=== PATIENT | male | born 1955 | race Caucasian/White ===

== ENCOUNTER 2020-11-30 14:49 | Emergency (ER) | payer BC ==
[2020-11-30 14:55] VITALS: TEMP 98
--- NOTE | 2020-11-30 15:24 | ED ---
Neuro HPI - General Chief Complaint: Weakness Stated Complaint: Face numbness Time Seen by Provider: 11/30/20 15:10 Source: patient Mode of arrival: wheelchair Limitations: no limitations - History of Present Illness Is the patient presenting with stroke symptoms?: Yes Last Known Well Date: 11/23/20 Initial Comments: This is a 65 yo male with h/o tobacco use and depression who presents to the ED for L facial numbness. The patient states it has been going on for the last week. STates that he feels his left cheek and upper lip are numb. States he also feels like the gums on his maxillary gums are aching. Denies any weakness, facial droop, difficulty with speech or swallowing, vision changes, difficulty with coordination. Denies CP or SOB. No trauma. No ear aches. Went to the dentist who told him he did not feel this was related to his teeth and sent him to the ED. No other complaints. - Related Data Home Medications: Previous Rx's Medication Instructions Recorded Amoxic-Pot Clav 875-125Mg 1 tab PO BID 1 Days #14 tab 11/30/20 [Augmentin 875-125] Allergies/Adverse Reactions: Allergies Allergy/AdvReac Type Severity Reaction Status Date / Time No Known Allergies Allergy Verified 11/30/20 14:55 Review of Systems ROS Statement: Those systems with pertinent positive or pertinent negative responses have been documented in the HPI. ROS Other: All systems not noted in ROS Statement are negative. General Exam - General Exam Comments Initial Comments: Constitutional: [Awake alert] [Appears comfortable] Head: [Normocephalic atraumatic] ENT: TM clear b/l, no ear fullness, oropharynx clear, multiple dental caries, no infectious signs Eyes: [no conjunctival injection] [No scleral icterus] [EOMI] Pupils 4mm and reactive b;l Neck: [No JVD] [Supple], no bruit Heart: [Regular rate rhythm] [normal S1-S2] [no murmurs] Lungs: [Clear to auscultation bilaterally] [No wheezing] [No rales] Abdomen: [Soft] [nondistended] [nontender] Extremities: [Non edematous] [DP pulses intact] [Radial pulses intact] Neuro: [A&Ox3] CN 2-12 intact except V, 5/5 strength in UE/LE b/l, decreased sensation over V2 area on L, Normal heel to mathis finger to nose, visual caban intact [No focal neurologic deficits] Psych: [Appropriate mood and affect] Limitations: no limitations Stroke MDM - Lab Data Result diagrams: 11/30/20 15:36 11/30/20 15:36 Lab Results 11/30/20 11/30/20 11/30/20 Range/Units 15:36 15:36 15:36 WBC 7.0 (3.8-10.6) k/uL RBC 4.50 (4.30-5.90) m/uL Hgb 15.0 (13.0-17.5) gm/dL Hct 43.5 (39.0-53.0) % MCV 96.8 (80.0-100.0) fL MCH 33.3 (25.0-35.0) pg MCHC 34.4 (31.0-37.0) g/dL RDW 13.9 (11.5-15.5) % Plt Count 233 (150-450) k/uL MPV 6.7 Neutrophils % 58 % Lymphocytes % 28 % Monocytes % 7 % Eosinophils % 3 % Basophils % 1 % Neutrophils # 4.1 (1.3-7.7) k/uL Lymphocytes # 2.0 (1.0-4.8) k/uL Monocytes # 0.5 (0-1.0) k/uL Eosinophils # 0.2 (0-0.7) k/uL Basophils # 0.1 (0-0.2) k/uL PT 10.8 (9.0-12.0) sec INR 1.0 (<1.2) APTT 25.4 (22.0-30.0) sec Sodium 139 (137-145) mmol/L Potassium 4.4 (3.5-5.1) mmol/L Chloride 106 (98-107) mmol/L Carbon Dioxide 27 (22-30) mmol/L Anion Gap 6 mmol/L BUN 10 (9-20) mg/dL Creatinine 0.72 (0.66-1.25) mg/dL Est GFR (CKD-EPI)AfAm >90 (>60 ml/min/1.73 sqM) Est GFR (CKD-EPI)NonAf >90 (>60 ml/min/1.73 sqM) Glucose 90 (74-99) mg/dL Calcium 9.7 (8.4-10.2) mg/dL Total Bilirubin 0.7 (0.2-1.3) mg/dL AST 24 (17-59) U/L ALT 11 (4-49) U/L Alkaline Phosphatase 89 (38-126) U/L Total Protein 7.5 (6.3-8.2) g/dL Albumin 4.2 (3.5-5.0) g/dL - NIH Stroke Scale 1a. Level of Consciousness: (0) alert 1b. LOC Questions: (0) answers correctly 1c. LOC Commands: (0) performs tasks correctly 2. Best Gaze: (0) normal 3. Visual: (0) no visual loss 4. Facial Palsy: (0) normal symmetrical movement 5a. Motor Arm Left: (0) no drift 5b. Motor Arm Right: (0) no drift 6a. Motor Leg Left: (0) no drift 6b. Motor Leg Right: (0) no drift 7. Limb Ataxia: (0) absent 8. Sensory: (1) mild/moderate sensory loss 9. Best Language: (0) no aphasia 10. Dysarthria: (0) normal 11. Extinction/Inattention: (0) no abnormality - Medical Decision Making This is a 65-year-old male who presents emergency department for left facial numbness. The patient had no other focal neurologic findings on examination. The patient is CT of his head performed that showed what appears to be a mass in the left maxillary sinus with erosion to the posterior wall area and these findings were discussed with Dr. Pool over the phone who advised the patient follow-up closely in the office the next 2 days for likely biopsy. He recommended Augmentin twice a day as well. The patient was updated of these findings and recommendations and is agreeable with plan of care. I advised him to return the emergency room if he has any high fevers chills, worsening num bness or develops any new neurologic symptoms area all questions were answered. Past Medical History Additional Past Medical History / Comment(s): sinus infection History of Any Multi-Drug Resistant Organisms: None Reported Past Surgical History: No Surgical Hx Reported Past Psychological History: No Psychological Hx Reported Smoking Status: Current every day smoker Past Alcohol Use History: Occasional Past Drug Use History: None Reported Course Vital Signs 11/30/20 11/30/20 14:52 16:22 Temperature 98 F Pulse Rate 71 65 Respiratory 20 18 Rate Blood Pressure 119/77 124/78 O2 Sat by Pulse 99 98 Oximetry Disposition Clinical Impression: Maxillary sinus mass Disposition: HOME SELF-CARE Condition: Stable Prescriptions: Amoxic-Pot Clav 875-125Mg [Augmentin 875-125] 1 tab PO BID 1 Days #14 tab Is patient prescribed a controlled substance at d/c from ED?: No Referrals: Prasanna Vicente MD [Primary Care Provider] - 1-2 days Home Mallory DO [Doctor of Osteopathic Medicine] - 1-2 days
[2020-11-30 16:00] LABS: Basophils # (A) 0.1 k/uL (0-0.2); Basophils % (A) 1 %; Eosinophils # (A) 0.2 k/uL (0-0.7); Eosinophils % (A) 3 %; HCT 43.5 % (39.0-53.0); Lymphocytes % (A) 28 %; MCH 33.3 pg (25.0-35.0); MCHC 34.4 g/dL (31.0-37.0); MCV 96.8 fL (80.0-100.0); Mean Platelet Volume 6.7; Monocytes # (A) 0.5 k/uL (0-1.0); Monocytes % (A) 7 %; Neutrophils # (A) 4.1 k/uL (1.3-7.7); Neutrophils % (A) 58 %; Platelet Count 233 k/uL (150-450); RDW 13.9 % (11.5-15.5)
[2020-11-30 16:07] LABS: Partial Thromboplastin Time 25.4 sec (22.0-30.0); Prothrombin Time 10.8 sec (9.0-12.0)
[2020-11-30 16:12] LABS: ALT 11 U/L (4-49); AST 24 U/L (17-59); African American GFR (CKD) >90 (>60 ml/min/1.73 sqM); Albumin 4.2 g/dL (3.5-5.0); Alkaline Phosphatase 89 U/L (38-126); Anion Gap 6 mmol/L; Blood Urea Nitrogen 10 mg/dL (9-20); Calcium 9.7 mg/dL (8.4-10.2); Carbon Dioxide 27 mmol/L (22-30); Chloride 106 mmol/L (98-107); Glucose 90 mg/dL (74-99); Non-African American GFR(CKD) >90 (>60 ml/min/1.73 sqM); Potassium 4.4 mmol/L (3.5-5.1); Sodium 139 mmol/L (137-145); Total Bilirubin 0.7 mg/dL (0.2-1.3); Total Protein 7.5 g/dL (6.3-8.2)
[2020-11-30 16:23] VITALS: RESP 18
--- NOTE | 2020-11-30 16:29 | CT ---
EXAMINATION TYPE: CT brain wo con DATE OF EXAM: 11/30/2020 COMPARISON: None INDICATION: Patient poor historian DLP: 1202.4 mGycm, Automated exposure control for dose reduction was used. CONTRAST: None CT of the brain is performed utilizing 3 mm thick sections through the posterior fossa and 3 mm thick sections through the remaining calvarium. Study is performed within 24 hours of arrival to the hosp ital. No abnormal hyperdensity is present to suggest an acute intracranial hemorrhage. No mass lesion is evident. No acute infarcts are evident. Ventricles and sulci are prominent for the patient age. There is an air-fluid level within the right maxillary sinus. There is opacification of the left maxi llary sinus. Minimal mucosal thickening throughout ethmoid air cells. Sphenoid sinuses are clear. Opa cification of the left frontal sinus. There appears to be destruction of the posterior lateral left maxillary sinus wall. Admissions Representative spaces appear normal. Consider additional workup of the left maxilla. IMPRESSIONS: 1. Mild age-related atrophy of the brain. 2. Opacification of the left maxillary sinus with destruction of the posterior wall. Consider additio nal workup. Neoplasm is not excluded at this time. 3. Additional opacification of the left frontal sinus with air-fluid level within the right maxillary sinus. Correlate for sinusitis.
[2020-11-30 17:40] VITALS: BP 125/76; PULSE 60
== END 2020-11-30 17:43 | disposition home or self-care (01) ==
LOC: EC 14:49
DX: J34.89 Other specified disorders of nose and nasal sinuses (principal); F17.200 Nicotine dependence, unspecified, uncomplicated
CPT/HCPCS: 36415; 70450; 80053; 85025; 85610; 85730; 93005; 99284

== ENCOUNTER → 2020-12-18 | Outpatient (CLI) | payer BC ==
--- NOTE | 2020-12-19 10:19 | CT ---
EXAMINATION TYPE: CT sinus wo con DATE OF EXAM: 12/18/2020 COMPARISON: CT brain 11/30/2020 HISTORY: LT maxillary mass, pain x3 weeks CT DLP: 426 mGycm CONTRAST: 0 mL of Isovue 300 The paranasal sinuses are examined in the axial plane at 2 mm thick sections. Reconstructed images i n the coronal plane were obtained. Findings: There is destruction of the posterior lateral left maxillary wall. Borders appear smooth brock ggesting this is more chronic in nature. No expansion of the anterior medial wall examination. There is opacification of the ostiomeatal unit orbital floor is visualized appears intact. There is soft tissue density beyond the posterior lateral left maxillary wall. However, the masticato r spaces otherwise appear symmetrical. Fat planes appear preserved. Right maxillary sinus has an air-fluid level with mucosal thickening present. Correlate for acute rig ht maxillary sinusitis. Small amount mucosal thickening within an anterior left ethmoid air cell. The sphenoid sinuses are c lear. Left frontal sinus is opacified. The septum is evaluated. There is septal deviation to the right. Right septal spur is noted. The ostiomeatal units are obstructed. IMPRESSIONS: 1. Posterolateral left septal wall destruction is nonspecific. Aggressive destruction is not identif ied. However, neoplasm cannot be excluded on the basis of this examination. No remodeling is identifi ed. Differential diagnosis could include polyposis. 2. Acute right maxillary sinusitis. 3. Additional small areas of opacification left ethmoid and frontal sinuses.
== END | disposition home or self-care (01) ==
LOC: RADCTMAIN 16:19
PROVIDERS: ATTEND Otolaryngology
DX: J32.0 Chronic maxillary sinusitis (principal); J34.89 Other specified disorders of nose and nasal sinuses; J34.2 Deviated nasal septum
CPT/HCPCS: 70486

== ENCOUNTER 2020-12-26 08:15 | Day surgery (SDC) | payer BC ==
[2020-12-19 13:57] VITALS: BMI 24.4
[~2020-12-26 08:15] MED LIST: DEXAMETHASONE SOD PHOSPHATE 4 MG/ML 1 ML VIAL IV ONE; DEXAMETHASONE SOD PHOSPHATE 4 MG/ML 1 ML VIAL IV PRN; FAMOTIDINE 20 MG/2 ML VIAL IV PRN; HYDROmorphone 0.5 MG/0.5 ML SYRINGE IVP PRN; LACTATED RINGERS 1,000 ML IV SCH; LIDOCAINE 1% (10MG/ML) FOR IV START INTRADERMA PRN; MIDAZOLAM 2 MG/2 ML VIAL IV PRN; ONDANSETRON 4 MG/2 ML VIAL IVP ONE; ONDANSETRON 4 MG/2 ML VIAL IVP PRN; OXYMETAZOLINE 0.05% NASL SPRAY 1 SPRAY BOTTLE EA NOSTRIL PRN
[2020-12-26] MEDS ORDERED: PROPOFOL 10 MG/ML 20 ML VIAL IV ONE (09:53)
[2020-12-26] MEDS ORDERED: DEXAMETHASONE SOD PHOSPHATE 10 MG/ML 1 ML VIAL ONE (09:53)
[2020-12-26] MEDS ORDERED: LIDOCAINE 1% INJ 10MG/ML (20 ML MDV) ONE (09:53)
[2020-12-26] MEDS ORDERED: PHENYLEPHRINE-0.9% NACL SYG 1,000 MCG/10 ML SYRINGE ONE (09:53)
[2020-12-26] MEDS ORDERED: MIDAZOLAM 2 MG/2 ML VIAL ONE (09:53)
[2020-12-26] MEDS ORDERED: fentaNYL (PF) 50 MCG/ML 2 ML AMP ONE (09:53)
[2020-12-26] MEDS ORDERED: SUCCINYLCHOLINE CHLORIDE 100 MG/5 ML SYR IV ONE (09:53)
[2020-12-26] MEDS ORDERED: LIDOCAINE 1%-EPI 1:100,000 20 ML VIAL SUBMUCOSAL ONE (10:15)
--- NOTE | 2020-12-26 11:04 | P.OP ---
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 Postoperative Diagnosis: Same Procedure(s) Performed: Left-sided endoscopic sinus surgery including left maxillary antrostomy with removal of tissue from the maxillary sinus/biopsy, left anterior and posterior ethmoidectomy, left frontal sinusotomy with removal of tissue from the left frontal sinus and exploration Anesthesia: MAIDA Surgeon: Rob Isaac Estimated Blood Loss (ml): 5 Pathology: other (Left-sided sinus tissue including left maxillary sinus left anterior posterior ethmoid sinus and left frontal sinus) Condition: stable Disposition: PACU Indications for Procedure: This 65-year-old white male who presented with numbness of the distribution of the left infraorbital nerve. A computed tomography scan showed a mass in the left maxillary sinus with expansion of the posterior wall as well as left anterior and posterior ethmoid and left frontal sinus disease Operative Findings: Polyps in the left middle meatus as well as the ethmoid air cells diffusely. L eft maxillary ostium was obstructed. There was some minimal purulence in the left maxillary sinus which was cultured. The posterior wall of the left maxillary sinus had irregular appearing tissue which appeared more consistent potentially with inverted papilloma which was biopsied separately there is also some smooth polypoid tissue in the lateral left maxillary sinus Description of Procedure: Patient brought operative suite and placed in a supine position. Patient underwent induction of general anesthesia with oral endotracheal intubation without difficulty. Patient prepped and draped in usual aseptic fashion with the orbits in the operating field for monitoring throughout the case computed tomography scan a computer screen for review throughout the case also. 1% lidocaine with 1 100,000 epinephrine was infused submucosally left lateral nasal wall as well as left anterior tips the middle turbinate and the polyps themselves. This was left to work for 7 minutes vasoconstrictive effect. The polyps were debrided with the microdebrider 4 mm blade and then proceeded to perform the left anterior posterior ethmoidectomy with the microdebrider up- biting and straight Blakesley forceps. The frontal sinusotomy was also performed with curved suction and up-biting Blakesley forceps and explored with removal of mucosal thickening from the orbital sinus using giraffe forceps. The left maxillary ostium was completely obstructed and was located with a ballpoint probe and curved suction. There was minimal purulence upon opening this which was cultured. The maxillary ostium was enlarged at the expense of the anterior posterior fontanelle taking care anteriorly hatchet injure the lacrimal bone. The polypoid tissue more laterally was debrided with a curved suction and giraffe forceps. The posterior wall was diffusely involved with irregular appearing tissue which was erythematous and mildly exophytic. Multiple separate biopsies were taken of this with giraffe forceps. Hemostasis was noted to be good spontaneously. A combination of standard and firm nasal pore nasal dressings were placed in the middle meatus under direct visualization. Good hemostasis was noted. The patient was suctioned in the nasal cavity and oropharynx and in oral gastric fashion. The patient was then allowed to emerge from general anesthesia having tolerated procedure well was extubated in the operating suite and transferred to postop recovery area in satisfactory condition.
[2020-12-26 11:27] VITALS: TEMP 98
[2020-12-26] MEDS ORDERED: IV FLUID CONTINUATION 1,000 ML IV ONE (12:14)
[2020-12-26 12:24] VITALS: RESP 16
[2020-12-26 12:41] VITALS: BP 123/70; PULSE 67
== END 2020-12-26 13:13 | disposition home or self-care (01) ==
LOC: OR 08:15
PROVIDERS: ATTEND Otolaryngology
DX: J32.9 Chronic sinusitis, unspecified (principal); J33.8 Other polyp of sinus; F17.210 Nicotine dependence, cigarettes, uncomplicated; Z79.899 Other long term (current) drug therapy
CPT/HCPCS: 88305; 87070; 87205; 87075; 87102; 87077; 87186; 31267; 31253; J2250; J1100 ×2; J2405; J0690; J2001; J3010; J2370; J0330; J2704

== ENCOUNTER → 2021-01-15 | Outpatient (CLI) | payer BC ==
--- NOTE | 2021-01-15 18:53 | MR ---
EXAMINATION TYPE: MR neck wo/w con DATE OF EXAM: 01/15/2021 COMPARISON: CT sinuses 12/18/2020 HISTORY: 65-year-old male C31.0, left-sided numbness in the face, abnormal CT. Technique: Multiplanar, multisequence images of the neck and face were obtained before and after admi nistration of 7.5 mL intravenous Gadavist gadolinium contrast. FINDINGS: There appears to be heterogeneously enhancing abnormal soft tissue mass that shows heterogeneous T2 b right signal centered within the left maxilla destroying the posterior wall of the left maxillary sin us. This measures approximately 3.8 cm wide by 2.3 cm AP by 4.5 cm craniocaudal and extends to the fl oor of the left orbit down into the inferior aspect of the maxilla and laterally just adjacent to the zygomatic arch. There is soft tissue extension into the retromaxillary fat. There has been our for clearance of the left maxillary sinus as compared to the 12/18/2020 CT. Rightward nasal septal deviation. Moderate mucosal thickening bilateral maxillary sinuses, ethmoid air cells, and mild in the sphenoid sinuses. Complete opacification left frontal sinus. Orbits and globes appear intact. There is some edema and thickening with some corresponding enhancement along the anterior aspect of t he upper left masseter muscle that show some corresponding enhancement. The parotid glands are mildly atrophic. Some irregular glands appear satisfactory. Bilateral symmetrical palatine tonsillar hypertrophy. Rightward nasal septal deviation. Thyroid gland appears satisfactory. No definite some prominent but nonenlarged station 2A lymph nodes on both sides measuring up to 1.1 c m short axis. IMPRESSION: 1. Heterogeneously enhancing soft tissue mass centered in and destroying the posterior wall of the le ft maxillary sinus. This invades the retromaxillary fat and possibly into the anterior aspect of the upper left masseter muscle. There is craniocaudal extension of 4.5 cm to just below the left orbital floor and extension down into the inferior aspect of the maxilla. Mass measures 3.8 cm wide and 2.3 c m AP. Correlate for squamous cell carcinoma or lymphoma. 2. Moderate chronic pansinusitis.
== END | disposition home or self-care (01) ==
LOC: RADMRIMAIN 11:38
PROVIDERS: ATTEND Otolaryngology
DX: C31.0 Malignant neoplasm of maxillary sinus (principal); J32.4 Chronic pansinusitis
CPT/HCPCS: 70543; A9585

== ENCOUNTER → 2021-01-18 | Outpatient (CLI) | payer BC ==
--- NOTE | 2021-01-21 07:57 | PE ---
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 Images are reviewed on the computer in the coronal, a xial, and sagittal planes. Reconstructed rotating images are created on independent workstation and reviewed on the computer. A localization and attenuation correction CT is performed in conjunction with the PET scan. Blood glucose level equals 98. Dedicated PET/CT imaging of the head and neck. SCAN: Initial Scan FINDINGS: SKULL BASE AND NECK: Known heterogeneous left maxillary sinus mass or neoplasm redemonstrated destro de the posterior lateral wall measuring approximately 3.6 x 3.1 cm axial image 33 with posterior la teral extension, max SUV is 10.03 at this level axial image 31. This extends inferiorly to below maxi lla axial image 35. There is asymmetric hypermetabolic soft tissue noted just anterior to the pterygo id plates along the lateral aspect. No additional areas of abnormal hypermetabolic uptake. No suspicious hypermetabolic adenopathy. CHEST, MEDIASTINUM, AND HILAR REGION: No areas of abnormal hypermetabolic uptake. ABDOMEN AND PELVIS: No areas of abnormal hypermetabolic uptake. OSSEOUS STRUCTURES: No areas of abnormal hypermetabolic uptake. OTHER CT: [id number] calcified plaque left carotid bulb. Minimal calcified plaque right carotid bulb. Mild to moderate upper lung parenchymal scarring with slight nodularity but no suspicious hypermetabo lic uptake. Three-vessel coronary artery calcification. Calcification at the level of the aortic valv e. Moderate to severe calcified plaque of the infrarenal aorta extends into branch vessels. Multilevel uncovertebral facet degenerative changes in the cervical spine. [id number]-eg-[id number] height lo ss involving L2 vertebra. Facet arthropathy lower lumbar levels. 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 No suspiciou s adenopathy or metastatic disease.
== END | disposition home or self-care (01) ==
LOC: RADPETMAIN 06:08
PROVIDERS: ATTEND Otolaryngology
DX: C31.0 Malignant neoplasm of maxillary sinus (principal)
CPT/HCPCS: 78815; A9552

== ENCOUNTER 2021-03-22 11:31 | Emergency (ER) | payer BC ==
[2021-03-22 12:12] VITALS: BP 116/74; PULSE 90; RESP 18; TEMP 97.6
[2021-03-22] MEDS ORDERED: CEPHALEXIN 500 MG CAP PO STA (12:40)
[2021-03-22] MEDS ORDERED: SULFAMETHOX-TMP 800-160MG 1 EACH TAB PO STA (12:41)
--- NOTE | 2021-03-22 12:50 | ED ---
General Adult HPI - General Chief complaint: ENT Stated complaint: Facial Swelling Time Seen by Provider: 03/22/21 12:18 Source: patient, RN notes reviewed, old records reviewed Mode of arrival: ambulatory Limitations: no limitations - History of Present Illness Initial comments: 66-year-old male with swelling around the left eye. 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 He has been doing quite well postoperatively. He was fitted for a mask for radiation yesterday and noted soft tissue is swelling and erythema around the upper lid of the eye today. He had a very minor pain in the left frontal region. No fever. No other complaints. He had contacted his ENT surgeon on-call,in [place] who requested the patient be evaluated. - Related Data Home Medications Medication Instructions Recorded Confirmed Citalopram Hydrobromide [CeleXA] 40 mg PO HS 11/30/20 12/19/20 clonazePAM [KlonoPIN] 1 mg PO HS 11/30/20 12/19/20 Acetaminophen [Tylenol] 325 - 650 mg PO Q4H PRN 12/19/20 12/19/20 Previous Rx's Medication Instructions Recorded Cephalexin [Keflex] 500 mg PO QID 10 Days #40 cap 03/22/21 Sulfamethox-Tmp 800-160Mg [Bactrim 1 tab PO Q12HR 10 Days #20 tab 03/22/21 DS 800-160 mg] Allergies Allergy/AdvReac Type Severity Reaction Status Date / Time No Known Allergies Allergy Verified 03/22/21 12:12 Review of Systems ROS Statement: Those systems with pertinent positive or pertinent negative responses have been documented in the HPI. ROS Other: All systems not noted in ROS Statement are negative. Past Medical History Past Medical History: Cancer Additional Past Medical History / Comment(s): sinus infection, maxilla CA History of Any Multi-Drug Resistant Organisms: None Reported Past Surgical History: No Surgical Hx Reported Additional Past Surgical History / Comment(s): 01/2021 cancer removal surgery left sinus cavity/maxilla Past Psychological History: No Psychological Hx Reported Smoking Status: Former smoker Past Alcohol Use History: Occasional Past Drug Use History: None Reported General Exam Limitations: no limitations General appearance: alert, in no apparent distress Head exam: Present: atraumatic, normocephalic Eye exam: Present: other (Incision is clean, well healed, no erythema or purulence. There is upper lid edema and mild erythema. This is soft, nontender. There is no skin changes superiorly above the eye. There is no induration or fluctuance.) Neck exam: Present: normal inspection Respiratory exam: Present: normal lung sounds bilaterally. Absent: respiratory distress, wheezes Cardiovascular Exam: Present: regular rate, normal rhythm GI/Abdominal exam: Present: soft. Absent: distended, tenderness Extremities exam: Present: normal inspection, normal capillary refill. Absent: pedal edema Course Vital Signs 03/22/21 12:06 Temperature 97.6 F Pulse Rate 90 Respiratory 18 Rate Blood Pressure 116/74 O2 Sat by Pulse 100 Oximetry Medical Decision Making - Medical Decision Making 66-year-old male with soft tissue swelling around the left eye. This is predominantly ALLERGIC in nature. There is no tenderness. This is soft and nonindurated, nonfluctuant. I did discuss case with Dr. Melvin who is covering for ENT out [facility] who is familiar with the patient. He had recommended the patient presented to the emergency department for evaluation. At this time we will cover for possibility of early infectious causes with Keflex and Bactrim. I suspect this may be ALLERGIC but to be on the safe side we will cover with antibiotics. He will seek referral to his ENT surgeon. He is given strict return parameters. Disposition Clinical Impression: Periorbital edema of left eye Disposition: HOME SELF-CARE Condition: Good Instructions (If sedation given, give patient instructions): Periorbital Cellulitis in Adults (ED) Additional Instructions: Please return with fever, worsening swelling, worsening pain. Please follow-up with your ENT surgeon. Please return as needed to the emergency department. Prescriptions: Sulfamethox-Tmp 800-160Mg [Bactrim DS 800-160 mg] 1 tab PO Q12HR 10 Days #20 tab Cephalexin [Keflex] 500 mg PO QID 10 Days #40 cap Is patient prescribed a controlled substance at d/c from ED?: No Referrals: Prasanna Vicente MD [Primary Care Provider] - 1-2 days Time of Disposition: 12:49
== END 2021-03-22 13:02 | disposition home or self-care (01) ==
LOC: EC 11:31
DX: H05.222 Edema of left orbit (principal); Z72.89 Other problems related to lifestyle; Z87.891 Personal history of nicotine dependence
CPT/HCPCS: 99283

== ENCOUNTER → 2021-07-26 | Outpatient (CLI) | payer BC, OTHER ==
--- NOTE | 2021-07-28 21:19 | PE ---
EXAMINATION TYPE: PET CT fusion skull to thigh DATE OF EXAM: 07/26/2021 COMPARISON: Prior PET/CT January 18, 2021 HISTORY: Head and neck cancer progress study . 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 TECHNIQUE: Following the intravenous administration of 8.36 mCi of F-18 FDG, whole body images are p erformed from the skull base to the midthigh. Images are reviewed on the computer in the coronal, ax ial, and sagittal planes. Reconstructed rotating images are created on independent workstation and r eviewed on the computer. A localization and attenuation correction CT is performed in conjunction w ith the PET scan. Dedicated PET/CT imaging of the head and neck. Blood glucose level equals 104. SCAN: Subsequent Scan FINDINGS: SKULL BASE AND NECK: New enhancing hypermetabolic soft tissue lesion over the left frontal calvarium measures 3.9 x 1.0 cm axial image 11, max SUV is 10.72. Known heterogeneous left maxillary sinus mass or neoplasm now shows absent posterior lateral wall wit h area of soft tissue density superiorly and more fatty density inferiorly now has absent anterior wa ll extending all the way to the midline nasal septum into the nasal vault measuring approximately 5.7 x 4.6 cm axial image 37 . Findings consistent with extensive interval postsurgical change. Mild hype rmetabolic only along posterior superior aspect subcentimeter focus axial image 34, max SUV is 3.8 at this level. This area should be closely followed. Extensive surgical changes with extends inferiorly to below maxilla and hyoid bone up to level of the thyroid gland is noted. No additional new areas of abnormal hypermetabolic uptake No. No additional new suspicious hypermetab olic adenopathy. CHEST, MEDIASTINUM, AND HILAR REGION: No new areas of abnormal hypermetabolic uptake. ABDOMEN AND PELVIS: No new areas of abnormal hypermetabolic uptake. OSSEOUS STRUCTURES: No new areas of abnormal hypermetabolic uptake. OTHER CT: [id number] calcified plaque left carotid bulb. Minimal calcified plaque right carotid bulb. Mild to moderate upper lung parenchymal scarring with slight nodularity but no suspicious hypermetabo lic uptake is redemonstrated. Three-vessel coronary artery calcification. Calcification at the level of the aortic valve. There is 4.2 cm ascending aortic aneurysm redemonstrated. Moderate to severe calcified plaque of the infrarenal aorta extends into branch vessels. Multilevel uncovertebral facet degenerative changes in the cervical spine. [id number] height lo ss involving L2 vertebra. Facet arthropathy lower lumbar levels. IMPRESSION: New suspicious enhancing soft tissue lesion over the left frontal calvarium worrisome for neoplastic involvement. Extensive interval posttreatment change. Subcentimeter focus posterior super ior level could reflect residual tumor and should be closely monitored. No new metastatic disease bel ow the neck.
== END | disposition home or self-care (01) ==
LOC: RADXRMAIN 12:05
PROVIDERS: ATTEND Internal Medicine Hematology & Oncology
DX: C31.0 Malignant neoplasm of maxillary sinus (principal); M89.8X8 Other specified disorders of bone, other site
CPT/HCPCS: 78815; A9552

== ENCOUNTER → 2021-07-29 | Outpatient (CLI) | payer BC, OTHER ==
--- NOTE | 2021-07-30 05:11 | MR ---
EXAMINATION TYPE: MR lspine/sacrum wo/w con DATE OF EXAM: 07/29/2021 COMPARISON: None HISTORY: RT foot drop, hx of cancer CONTRAST: Standard multiplanar, multisequence MRI departmental protocol images were obtained without contrast a nd with 7 mL intravenous Gadavist gadolinium contrast. Images of the lumbar spine and the sacrum obtained with and without contrast. Lumbar vertebrae have normal alignment. There is 30% compression deformity of L2 vertebral body with depression of the superior endplate. There is mild narrowing of the neural foramina in the lumbar spi ne. There is no lumbar paraspinal mass. Sacroiliac joints are intact. There is patchy signal pattern and the lumbar vertebra consistent with variable fatty marrow replacement. No pathologic enhancement. Sacral segments have normal alignment. The sacroiliac joints appear intact. Coccyx appears normal. Pr esacral soft tissues appear intact. No pathologic fluid collection. No fracture seen. No pathologic e nhancement seen in the sacrum. IMPRESSION: No evidence of metastatic disease. There is osteoporotic type compression fracture of L2 vertebra. No evidence of spinal stenosis.
== END | disposition home or self-care (01) ==
LOC: RADMRIMAIN 05:52
PROVIDERS: ATTEND Internal Medicine Hematology & Oncology
DX: M80.88XA Other osteoporosis with current pathological fracture, vertebra(e), initial encounter for fracture (principal)
CPT/HCPCS: 72158; 72197; A9585

== ENCOUNTER → 2021-08-29 | Outpatient (CLI) | payer BC, OTHER ==
--- NOTE | 2021-08-31 03:36 | MR ---
EXAMINATION TYPE: MR brain wo/w con DATE OF EXAM: 08/30/2021 COMPARISON: HISTORY: Malignant neoplasm maxillary sinus. CONTRAST: Standard multiplanar, multisequence MRI departmental protocol images were obtained without contrast a nd with 7 mL intravenous Gadavist gadolinium contrast. Detail of the paranasal sinuses is limited due to metal artifact. Diffusion images show no evidence of an acute infarct. There is no mass effect or midline shift. No s ign of intracranial hemorrhage. Corpus callosum is intact. Sella turcica is normal. There is no evide nce of posterior fossa mass. There is extensive fluid signal and expansion involving the left maxillary sinus. There is mild mucos al thickening right maxillary sinus. There is no pathologic intracranial enhancement. There is normal enhancement of the venous sinuses. There is some left frontal scalp soft tissue swelling and enhancement. IMPRESSION: No intracranial evidence for metastatic disease. Large mass involving the left maxillary sinus with expansion across to midline and is increased in s ize compared to CT SCAN of 12/18/2020. Left frontal scalp soft tissue swelling with enhancement. Tumor is possible.
== END | disposition home or self-care (01) ==
LOC: RADMRIMAIN 07:52
PROVIDERS: ATTEND Otolaryngology
DX: Z53.9 Procedure and treatment not carried out, unspecified reason (principal)
CPT/HCPCS: 70553

== ENCOUNTER → 2021-08-30 | Outpatient (CLI) | payer BC, OTHER ==
--- NOTE | 2021-08-31 04:38 | MR ---
EXAMINATION TYPE: MR neck wo/w con DATE OF EXAM: 08/30/2021 COMPARISON: CT scan 12/18/2020 and PET/CT scan for a 22 HISTORY: Malignant neoplasm maxillary sinus. CONTRAST: Standard multiplanar, multisequence MRI departmental protocol images were obtained without contrast a nd with 7 mL intravenous Gadavist gadolinium contrast. Multiplanar multi echo imaging of the neck and facial bones without and with IV contrast. There is large mass involving the left maxillary sinus. The mass measures 4 x 4 x 6.3 cm. There is en hancement of the mass with contrast and consistent with tumor. There is expansion to the midline. The re is expansion into the floor of the left bony orbit. There appears to be some elevation of the infe rior rectus muscle due to the mass. There is some mucosal thickening right maxillary sinus. There is no evidence of posterior fossa mass. Right orbit appears normal. Thyroid gland is symmetric. No evidence of any significant cervical adenopathy. Submandibular salivary glands appear intact. The parotid glands appear intact. IMPRESSION: Large enhancing left maxillary sinus mass consistent with malignant tumor that appears very slightly increased in size compared to CT scan of 12/18/2020. There is apparent superior extension and invasion into the floor of the left orbit. This is a change compared to old CT scan. There is an increased me dial extension of the mass involving the inferior nasal turbinate.
== END | disposition home or self-care (01) ==
LOC: RADMRIMAIN 17:20
PROVIDERS: ATTEND Otolaryngology
DX: C31.0 Malignant neoplasm of maxillary sinus (principal)
CPT/HCPCS: 70543; A9585

== ENCOUNTER → 2021-10-11 | Outpatient (CLI) | payer BC, OTHER ==
--- NOTE | 2021-10-12 10:43 | CA ---
Transthoracic Echo Report Name: Efrain Woods Age: 66 Gender: M : 1955 Exam Date: 10/11/2021 13:49 Exam Location: [facility] Ht (in): 71 Wt (lb): 158 Ordering Physician: Renan Grewal DO Attending/Referring Phys: Steeple Jack Florecita Torres RDCS Procedure CPT: Indications: R94.31 ABNORMAL EKG Cardiac Hx: No ardiac hx Technical Quality: Good Contrast 1: Total Dose (mL): Contrast 2: Total Dose (mL): MEASUREMENTS (Male / Female) Normal Values 2D ECHO LV Diastolic Diameter PLAX 3.7 cm 4.2 - 5.9 / 3.9 - 5.3 cm LV Systolic Diameter PLAX 1.6 cm IVS Diastolic Thickness 0.9 cm 0.6 - 1.0 / 0.6 - 0.9 cm LVPW Diastolic Thickness 1.2 cm 0.6 - 1.0 / 0.6 - 0.9 cm LV Relative Wall Thickness 0.6 LVOT Diameter 1.7 cm M-MODE Aortic Root Diameter MM 3.5 cm LA Systolic Diameter MM 1.6 cm LA Ao Ratio MM 0.5 MV E Point Septal Separation 2.2 cm AV Cusp Separation MM 1.1 cm DOPPLER AV Peak Velocity 302.2 cm/s AV Peak Gradient 36.5 mmHg AV Mean Velocity 203.0 cm/s AV Mean Gradient 19.7 mmHg AV Velocity Time Integral 61.8 cm LVOT Peak Velocity 105.0 cm/s LVOT Peak Gradient 4.4 mmHg AV Area Cont Eq pk 0.8 cm??? MV Area PHT 3.4 cm??? MR Peak Velocity 99.9 cm/s MR Peak Gradient 4.0 mmHg Mitral E Point Velocity 85.8 cm/s Mitral A Point Velocity 70.7 cm/s Mitral E to A Ratio 1.2 MV Deceleration Time 224.5 ms MV E' Velocity 8.9 cm/s Mitral E to MV E' Ratio 9.6 TR Peak Velocity 153.5 cm/s TR Peak Gradient 9.4 mmHg Right Ventricular Systolic Press 13.5 mmHg FINDINGS Left Ventricle Normal Left ventricular size, wall thickness, systolic function with no obvious regional wall motion abnormalities. Normal Left ventricular diastolic filling pattern. Left ventricular ejection fraction is estimated at 55-60 %. Right Ventricle Normal right ventricular size and function. Right Atrium Normal right atrial size. Left Atrium Normal left atrial size. Mitral Valve Mitral valve thickened. Mild mitral regurgitation. Aortic Valve Moderate aortic stenosis with a peak gradient of 36 mmHg and a mean gradient of 19 mmHg. Trace to mild aortic regurgitation. Tricuspid Valve Structurally normal tricuspid valve without significant stenosis. Pulmonary artery systolic pressure is normal. Mild tricuspid regurgitation. Pulmonic Valve Structurally normal pulmonic valve without significant stenosis. There is no pulmonic regurgitation. Pericardium Normal pericardium without effusion. Aorta Normal aortic root dimension. CONCLUSIONS #1. Normal left ventricular size and function. #2. Mild mitral and tricuspid regurgitation Previewed by: Dr. Lorraine Corbett MD (Electronically Signed) Final Date: 12 October 2021 10:43
== END | disposition home or self-care (01) ==
LOC: RADECHMAIN 13:44
PROVIDERS: ATTEND Family Medicine
DX: I08.3 Combined rheumatic disorders of mitral, aortic and tricuspid valves (principal)
CPT/HCPCS: 93306

== ENCOUNTER → 2021-11-06 | Outpatient (CLI) | payer BC, OTHER ==
--- NOTE | 2021-11-06 12:39 | CA ---
Exercise Stress Test Report Name: Efrain Woods Exam Date: 11/06/2021 09:58 Exam Location: [facility] Ht (in): 72 Wt (lb): 154 BSA: 1.91 Ordering Phys: Renan Brown DO Referring Phys: FLORESITA BROWN,, Technologist: Vanessa Dominguez RDCS Age: 66 Gender: M : 1955 Procedure CPT: Indications: R94.31 abn ekg ICD-10 Codes: Patient History: Medications: Meds past 24 hrs: Pretest Chest Pain: STRESS TEST Vicente Protocol Exercise Duration (min:sec): 02:[address] Depressions (mm): Angina Score: Capps Score: Resting HR (bpm): 90 Peak HR (bpm): 99 Resting BP (mmHg): 125 / 77 Peak BP (mmHg): 136 / 84 MPHR: 156 Target HR: 133 % MPHR: 63 METS: 3.6 Total Dose: Peak Dose: Atropine: Double Product: 00441 BP Response: Stress Termination: Stress Symptoms: Stress Summary: ECG ANALYSIS Resting ECG: Stress ECG: CONCLUSIONS Patient underwent exercise stress EKG with a Vicente protocol treadmill stress test. Patient exercised into Stage 1 for a total of 2 minutes and 19 seconds reaching a total of 3.6 METS. Patient's maximum heart rate was 99 which represented 63 % age- predicted maximum heart rate. Stress EKG findings: At baseline patient's EKG showed Q waves in V1 and V2, no significant ST-T wave abnormalities. At peak exercise, EKG showed no significant change from baseline. Conclusions: 1. Nondiagnostic stress EKG secondary to inability to reach 85% maximum predicted heart rate 2. Poor exercise capacity. Dr. Sebastien Key DO (Electronically Signed) Final Date: 06 November 2021 12:38
== END | disposition home or self-care (01) ==
LOC: RADNMMAIN 09:37
PROVIDERS: ATTEND Family Medicine
DX: R94.31 Abnormal electrocardiogram [ECG] [EKG] (principal)
CPT/HCPCS: 93017

== ENCOUNTER 2022-01-12 13:58 | Emergency (ER) | payer BC, OTHER ==
[2022-01-12 14:28] VITALS: TEMP 97.8
[2022-01-12] MEDS ORDERED: KETOROLAC 15 MG/ML 1 ML VIAL IM STA (15:27)
--- NOTE | 2022-01-12 15:29 | ED ---
General Adult HPI - General Chief complaint: Recheck/Abnormal Lab/Rx Stated complaint: Cancer pt., pain in lt side of face Time Seen by Provider: 01/12/22 15:14 Source: patient, RN notes reviewed Mode of arrival: ambulatory Limitations: no limitations - History of Present Illness Initial comments: 66-year-old male presents emergency Department chief complaint of left-sided facial pain. Patient states January he had surgery for referral cancer his left maxillary sinus. Patient states that he has this removed., respiratory. He is followed by oncology here and nikolas down his right. Patient states that they're working on getting his nerve pain under control and which she is on gabapentin 600 mg 3 times a day. Patient states that he's been on multiple narcotics has not helped. Patient states pain was severe earlier but is lightning up time. He has had recent imaging last few weeks to make sure there is nothing recurrent. - Related Data Home Medications Medication Instructions Recorded Confirmed Citalopram Hydrobromide [CeleXA] 40 mg PO HS 11/30/20 12/19/20 clonazePAM [KlonoPIN] 1 mg PO HS 11/30/20 12/19/20 Acetaminophen [Tylenol] 325 - 650 mg PO Q4H PRN 12/19/20 12/19/20 Previous Rx's Medication Instructions Recorded Cephalexin [Keflex] 500 mg PO QID 10 Days #40 cap 03/22/21 Sulfamethox-Tmp 800-160Mg [Bactrim 1 tab PO Q12HR 10 Days #20 tab 03/22/21 DS 800-160 mg] Allergies Allergy/AdvReac Type Severity Reaction Status Date / Time No Known Allergies Allergy Verified 01/12/22 14:28 Review of Systems ROS Statement: Those systems with pertinent positive or pertinent negative responses have been documented in the HPI. ROS Other: All systems not noted in ROS Statement are negative. Past Medical History Past Medical History: Cancer Additional Past Medical History / Comment(s): sinus infection, maxilla CA History of Any Multi-Drug Resistant Organisms: None Reported Past Surgical History: No Surgical Hx Reported Additional Past Surgical History / Comment(s): 01/2021 cancer removal surgery left sinus cavity/maxilla Past Psychological History: No Psychological Hx Reported Smoking Status: Former smoker Past Alcohol Use History: Occasional Past Drug Use History: None Reported General Exam Limitations: no limitations General appearance: alert, in no apparent distress Head exam: Present: atraumatic, normocephalic, normal inspection Eye exam: Present: normal appearance, PERRL, EOMI. Absent: scleral icterus, conjunctival injection, periorbital swelling ENT exam: Present: mucous membranes moist. Absent: normal exam, normal oropharynx, other (Left-sided facial) Neck exam: Present: normal inspection, full ROM. Absent: tenderness, meningismus, lymphadenopathy Respiratory exam: Present: normal lung sounds bilaterally. Absent: respiratory distress, wheezes, rales, rhonchi, stridor Cardiovascular Exam: Present: regular rate, normal rhythm, normal heart sounds. Absent: systolic murmur, diastolic murmur, rubs, gallop, clicks Course Vital Signs 01/12/22 14:24 Temperature 97.8 F Pulse Rate 78 Respiratory 16 Rate Blood Pressure 125/82 O2 Sat by Pulse 98 Oximetry Medical Decision Making - Medical Decision Making Patient provided pain control patient's had recent imaging felt that he does not need to have further imaging as he has close monitoring by oncology and they're currently working on pain control. Patient recently on Toradol and discharge. Disposition Clinical Impression: Facial pain Disposition: HOME SELF-CARE Condition: Stable Instructions (If sedation given, give patient instructions): Atypical Facial Pain (ED) Additional Instructions: Please return to the Emergency Department if symptoms worsen or any other concerns. Is patient prescribed a controlled substance at d/c from ED?: No Referrals: Renan Grewal DO [Primary Care Provider] - 1-2 days Time of Disposition: 15:29
[2022-01-12 15:53] VITALS: BP 104/69; PULSE 80; RESP 18
== END 2022-01-12 15:53 | disposition home or self-care (01) ==
LOC: EC 13:58
DX: R51.9 Headache, unspecified (principal); Z87.891 Personal history of nicotine dependence
CPT/HCPCS: 99283; 96372; J1885

== ENCOUNTER 2022-01-19 15:34 | Emergency (ER) | payer BC, OTHER ==
[2022-01-19 15:41] VITALS: BP 139/76; PULSE 86; RESP 20; TEMP 98.4
[2022-01-19] MEDS ORDERED: KETOROLAC 15 MG/ML 1 ML VIAL IM STA (16:53)
--- NOTE | 2022-01-19 16:57 | ED ---
General Adult HPI - General Chief complaint: Recheck/Abnormal Lab/Rx Stated complaint: Lt side facial Pain Time Seen by Provider: 01/19/22 16:41 Source: patient, RN notes reviewed Mode of arrival: ambulatory Limitations: no limitations - History of Present Illness Initial comments: 66-year-old male presents to the emergency department for treatment of sided facial pain. States he had a sinus surgery approximately a year ago and has been taking a combination of Motrin and gabapentin to treat nerve related pain since. Patient states the pain has been worsening intermittently over the past several days and was seen here a few days ago and received a Toradol shot with improvement. Patient states he is scheduled to follow up with his surgeon for [place] pain management this week. We discussed options and patient would like to approach this discomfort from an inflammation standpoint. He denies any change in quality of pain aside from intensity. - Related Data Home Medications Medication Instructions Recorded Confirmed Citalopram Hydrobromide [CeleXA] 40 mg PO HS 11/30/20 12/19/20 clonazePAM [KlonoPIN] 1 mg PO HS 11/30/20 12/19/20 Acetaminophen [Tylenol] 325 - 650 mg PO Q4H PRN 12/19/20 12/19/20 Previous Rx's Medication Instructions Recorded Cephalexin [Keflex] 500 mg PO QID 10 Days #40 cap 03/22/21 Sulfamethox-Tmp 800-160Mg [Bactrim 1 tab PO Q12HR 10 Days #20 tab 03/22/21 DS 800-160 mg] Ketorolac [Toradol] 10 mg PO Q8HR #15 tab 01/19/22 Allergies Allergy/AdvReac Type Severity Reaction Status Date / Time No Known Allergies Allergy Verified 01/19/22 15:41 Review of Systems ROS Statement: Those systems with pertinent positive or pertinent negative responses have been documented in the HPI. ROS Other: All systems not noted in ROS Statement are negative. Past Medical History Past Medical History: Cancer Additional Past Medical History / Comment(s): sinus infection, maxilla CA History of Any Multi-Drug Resistant Organisms: None Reported Past Surgical History: No Surgical Hx Reported Additional Past Surgical History / Comment(s): 01/2021 cancer removal surgery left sinus cavity/maxilla Past Psychological History: No Psychological Hx Reported Smoking Status: Former smoker Past Alcohol Use History: Occasional Past Drug Use History: None Reported General Exam Limitations: no limitations (Well-developed, well-nourished male in no acute distress. Initial temperature 98.4, pulse 86, respirations 20, blood pressure 139/76, pulse ox 99% on room air.) General appearance: alert, in no apparent distress Eye exam: Present: normal appearance, PERRL, EOMI. Absent: scleral icterus, conjunctival injection ENT exam: Present: other (left sided facial deformity due to surgery; no erythema or edema) Respiratory exam: Present: normal lung sounds bilaterally. Absent: respiratory distress, wheezes, rales, rhonchi, stridor Cardiovascular Exam: Present: regular rate, normal rhythm, normal heart sounds. Absent: systolic murmur, diastolic murmur, rubs, gallop, clicks Neurological exam: Present: alert, oriented X3, CN II-XII intact Psychiatric exam: Present: normal affect, normal mood Skin exam: Present: warm, dry, intact, normal color. Absent: rash Course Vital Signs 01/19/22 15:38 Temperature 98.4 F Pulse Rate 86 Respiratory 20 Rate Blood Pressure 139/76 O2 Sat by Pulse 99 Oximetry Medical Decision Making - Medical Decision Making 66-year-old male with chronic pain presents to the emergency department for treatment of left-sided facial nerve pain that has been an ongoing issue for the past year. Patient is on a regimen of gabapentin and Motrin though is not experiencing relief of symptoms. There is no acute process at this time. Discussed treatment options for in the emergency department and patient prefers Toradol which he received with some improvement. We discussed discontinuing his Motrin and taking Toradol in its place and patient would like to try this. He denies any renal impairment for history of renal insufficiency. He is scheduled to see since facial surgeon this week to discuss ongoing pain management options. Return parameters were discussed in detail. Patient verbalizes understanding and agrees with this plan. Attending: Chip Perez Clinical Impression: Chronic pain Disposition: HOME SELF-CARE Condition: Stable Instructions (If sedation given, give patient instructions): Chronic Pain (ED) Additional Instructions: Take Toradol in place of Motrin/ibuprofen. Follow-up as scheduled. Return to the emergency department with any new, worsening or concerning symptoms. Prescriptions: Ketorolac [Toradol] 10 mg PO Q8HR #15 tab Is patient prescribed a controlled substance at d/c from ED?: No Referrals: Renan Grewal DO [Primary Care Provider] - 1-2 days Time of Disposition: 17:56
== END 2022-01-19 18:04 | disposition home or self-care (01) ==
LOC: EC 15:34
DX: G89.29 Other chronic pain (principal); R51.9 Headache, unspecified; Z87.891 Personal history of nicotine dependence
CPT/HCPCS: 99283; 96372; J1885

== ENCOUNTER 2022-02-04 13:43 | Observation (INO) | payer MEDICARE, BC, OTHER ==
[2022-02-04] MEDS ORDERED: SODIUM CHLORIDE 0.9% 500 ML 500 ML IV STA ×2 (14:31→16:50)
[2022-02-04] MEDS ORDERED: SODIUM CHLORIDE 0.9% 1,000 ML IV STA (14:31)
--- NOTE | 2022-02-04 14:42 | ED ---
Weakness HPI - General Source: patient, RN notes reviewed Mode of arrival: ambulatory Limitations: no limitations <Pawel Huizar - Last Filed: 02/04/22 14:40> <Addison Barber - Last Filed: 02/04/22 17:14> - General Chief complaint: Weakness Stated complaint: stomach pain Time Seen by Provider: 02/04/22 14:20 - History of Present Illness Initial comments: 67-year-old male presents emergency Department with chief complaint of unable to eat, generalized weakness. Patient states that he was switched off his ibuprofen because he can have surgery on his jaw [place] states is placed on hydrocodone soon she started taking this medication is not been able to eat he has been constipated, very nauseated he states he feels dehydrated, feels very lethargic he denies any chest pain. Patient states that his surgery has not been canceled. Patient denies any localized abdominal pain other than mild cramping. Patient denies fevers or chills (Pawel Huizar) - Related Data Home Medications Medication Instructions Recorded Confirmed Citalopram Hydrobromide [CeleXA] 40 mg PO HS 11/30/20 02/04/22 clonazePAM [KlonoPIN] 1 mg PO HS 11/30/20 02/04/22 Cetirizine HCl [Zyrtec] 10 mg PO DAILY 02/04/22 02/04/22 Docusate Sodium [Dok] 100 mg PO BID PRN 02/04/22 02/04/22 HYDROcodone/APAP 5-325MG [[place] 1 tab PO Q6HR PRN 02/04/22 02/04/22 5-325] Pregabalin [Lyrica] 150 mg PO DAILY 02/04/22 02/04/22 Sucralfate [Carafate] 1 gm PO ACHS 02/04/22 02/04/22 polyethylene glycoL 3350 [Miralax] 17 gm PO DAILY PRN 02/04/22 02/04/22 predniSONE 5 mg PO DAILY 02/04/22 02/04/22 Allergies Allergy/AdvReac Type Severity Reaction Status Date / Time No Known Allergies Allergy Verified 02/04/22 16:18 Review of Systems ROS Other: All systems not noted in ROS Statement are negative. <Pawel Huizar - Last Filed: 02/04/22 14:40> ROS Other: All systems not noted in ROS Statement are negative. <Addison Barber - Last Filed: 02/04/22 17:14> ROS Statement: Those systems with pertinent positive or pertinent negative responses have been documented in the HPI. 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 Absent: scleral icterus, conjunctival injection, periorbital swelling ENT exam: Present: mucous membranes moist. Absent: normal exam, normal oropharynx (Deformity from prior surgery) Neck exam: Present: normal inspection, full ROM. Absent: tenderness, meningismus, lymphadenopathy Respiratory exam: Present: normal lung sounds bilaterally. Absent: respiratory distress, wheezes, rales, rhonchi, stridor Cardiovascular Exam: Present: normal rhythm, tachycardia, normal heart sounds. Absent: systolic murmur, diastolic murmur, rubs, gallop, clicks GI/Abdominal exam: Present: soft, normal bowel sounds. Absent: distended, tenderness, guarding, rebound, rigid <Pawel Huizar - Last Filed: 02/04/22 14:40> Course Vital Signs 02/04/22 02/04/22 14:12 16:19 Temperature 97.6 F Pulse Rate 118 H 61 Respiratory 18 12 Rate Blood Pressure 99/70 117/79 O2 Sat by Pulse 96 Oximetry Medical Decision Making - Lab Data Result diagrams: 02/04/22 14:42 02/04/22 14:42 <Addison Barber - Last Filed: 02/04/22 17:14> - Medical Decision Making Patient placed in observation for hydration. Case discussed with [facility] physician. (Addison Barber) - Lab Data Lab Results 02/04/22 02/04/22 02/04/22 Range/Units 14:42 14:42 14:42 WBC 8.2 (3.8-10.6) k/uL RBC 4.52 (4.30-5.90) m/uL Hgb 14.8 (13.0-17.5) gm/dL Hct 41.8 (39.0-53.0) % MCV 92.6 (80.0-100.0) fL MCH 32.8 (25.0-35.0) pg MCHC 35.4 (31.0-37.0) g/dL RDW 12.8 (11.5-15.5) % Plt Count 306 (150-450) k/uL MPV 7.0 Neutrophils % 77 % Lymphocytes % 12 % Monocytes % 7 % Eosinophils % 1 % Basophils % 1 % Neutrophils # 6.3 (1.3-7.7) k/uL Lymphocytes # 1.0 (1.0-4.8) k/uL Monocytes # 0.6 (0-1.0) k/uL Eosinophils # 0.1 (0-0.7) k/uL Basophils # 0.1 (0-0.2) k/uL PT 11.2 (9.0-12.0) sec INR 1.0 (<1.2) APTT 27.4 (22.0-30.0) sec Sodium 135 L (137-145) mmol/L Potassium 5.2 H (3.5-5.1) mmol/L Chloride 96 L (98-107) mmol/L Carbon Dioxide 26 (22-30) mmol/L Anion Gap 13 mmol/L BUN 19 (9-20) mg/dL Creatinine 0.93 (0.66-1.25) mg/dL Est GFR (CKD-EPI)AfAm >90 (>60 ml/min/1.73 sqM) Est GFR (CKD-EPI)NonAf 86 (>60 ml/min/1.73 sqM) Glucose 112 H (74-99) mg/dL Lactic Ac Sepsis Rflx Plasma Lactic Acid Daljit (0.7-2.0) mmol/L Calcium 10.3 H (8.4-10.2) mg/dL Magnesium 1.9 (1.6-2.3) mg/dL Total Bilirubin 0.7 (0.2-1.3) mg/dL AST 19 (17-59) U/L ALT 16 (4-49) U/L Alkaline Phosphatase 128 H (38-126) U/L Troponin I (0.000-0.034) ng/mL Total Protein 8.3 H (6.3-8.2) g/dL Albumin 4.5 (3.5-5.0) g/dL 02/04/22 02/04/22 02/04/22 Range/Units 14:42 14:42 15:04 WBC (3.8-10.6) k/uL RBC (4.30-5.90) m/uL Hgb (13.0-17.5) gm/dL Hct (39.0-53.0) % MCV (80.0-100.0) fL MCH (25.0-35.0) pg MCHC (31.0-37.0) g/dL RDW (11.5-15.5) % Plt Count (150-450) k/uL MPV Neutrophils % % Lymphocytes % % Monocytes % % Eosinophils % % Basophils % % Neutrophils # (1.3-7.7) k/uL Lymphocytes # (1.0-4.8) k/uL Monocytes # (0-1.0) k/uL Eosinophils # (0-0.7) k/uL Basophils # (0-0.2) k/uL PT (9.0-12.0) sec INR (<1.2) APTT (22.0-30.0) sec Sodium (137-145) mmol/L Potassium (3.5-5.1) mmol/L Chloride (98-107) mmol/L Carbon Dioxide (22-30) mmol/L Anion Gap mmol/L BUN (9-20) mg/dL Creatinine (0.66-1.25) mg/dL Est GFR (CKD-EPI)AfAm (>60 ml/min/1.73 sqM) Est GFR (CKD-EPI)NonAf (>60 ml/min/1.73 sqM) Glucose (74-99) mg/dL Lactic Ac Sepsis Rflx Y Plasma Lactic Acid Daljit 2.1 H* (0.7-2.0) mmol/L Calcium (8.4-10.2) mg/dL Magnesium (1.6-2.3) mg/dL Total Bilirubin (0.2-1.3) mg/dL AST (17-59) U/L ALT (4-49) U/L Alkaline Phosphatase (38-126) U/L Troponin I <0.012 (0.000-0.034) ng/mL Total Protein (6.3-8.2) g/dL Albumin (3.5-5.0) g/dL Disposition <Pawel Huizar - Last Filed: 02/04/22 14:40> Is patient prescribed a controlled substance at d/c from ED?: No Time of Disposition: 17:14 <Addison Barber - Last Filed: 02/04/22 17:14> Clinical Impression: Dehydration Disposition: ADMITTED IP TO THIS HOSP Condition: Stable Referrals: Renan Grewal DO [Primary Care Provider] - 1-2 days
[2022-02-04 14:48] LABS: Basophils # (A) 0.1 k/uL (0-0.2); Basophils % (A) 1 %; Eosinophils # (A) 0.1 k/uL (0-0.7); Eosinophils % (A) 1 %; HCT 41.8 % (39.0-53.0); HGB 14.8 gm/dL (13.0-17.5); Lymphocytes % (A) 12 %; MCH 32.8 pg (25.0-35.0); MCHC 35.4 g/dL (31.0-37.0); MCV 92.6 fL (80.0-100.0); Monocytes # (A) 0.6 k/uL (0-1.0); Monocytes % (A) 7 %; Neutrophils # (A) 6.3 k/uL (1.3-7.7); Neutrophils % (A) 77 %; Platelet Count 306 k/uL (150-450); RBC 4.52 m/uL (4.30-5.90); RDW 12.8 % (11.5-15.5); WBC 8.2 k/uL (3.8-10.6)
[2022-02-04] MEDS ORDERED: KETOROLAC 15 MG/ML 1 ML VIAL IVP STA ×2 (14:51→21:15)
[2022-02-04] MEDS ORDERED: PREGABALIN 75 MG CAP PO STA (14:52)
[2022-02-04 15:04] LABS: ALT 16 U/L (4-49); AST 19 U/L (17-59); African American GFR (CKD) >90 (>60 ml/min/1.73 sqM); Albumin 4.5 g/dL (3.5-5.0); Alkaline Phosphatase 128 U/L (38-126); Anion Gap 13 mmol/L; Blood Urea Nitrogen 19 mg/dL (9-20); Calcium 10.3 mg/dL (8.4-10.2); Carbon Dioxide 26 mmol/L (22-30); Chloride 96 mmol/L (98-107); Glucose 112 mg/dL (74-99); Magnesium 1.9 mg/dL (1.6-2.3); Non-African American GFR(CKD) 86 (>60 ml/min/1.73 sqM); Potassium 5.2 mmol/L (3.5-5.1); Sodium 135 mmol/L (137-145); Total Bilirubin 0.7 mg/dL (0.2-1.3); Total Protein 8.3 g/dL (6.3-8.2)
[2022-02-04 15:08] LABS: Partial Thromboplastin Time 27.4 sec (22.0-30.0); Prothrombin Time 11.2 sec (9.0-12.0)
[2022-02-04] MEDS ORDERED: NALOXONE 0.4 MG/ML 1 ML VIAL IV PRN (17:07)
[2022-02-04] MEDS ORDERED: SODIUM CHLORIDE 0.9% 1,000 ML IV SCH (17:15)
[2022-02-04] MEDS ORDERED: polyethylene glycoL 3350 17 GM POWD.PACK PO PRN (18:36)
[2022-02-04] MEDS ORDERED: DOCUSATE 100 MG CAP PO PRN (18:36)
[2022-02-04] MEDS ORDERED: HYDROcodone/APAP 5-325MG 1 EACH TAB PO PRN (18:36)
--- NOTE | 2022-02-04 18:40 | P.HPIM ---
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 Patient was scheduled for a surgery for his jaw at [facility] to help open his jaw more so that he can eat more. Patient states that he has canceled his surgery as he will not be able to make it since he will be admitted to our hospital. In the ED patient was found to be dehydrated. He was given fluids however he did not have any urine output so ED physician wanted to admit him. Patient understands that we will not be able to fix his eating issue as this will require surgery that is done at another [facility]. Patient is only expecting to get fluids overnight and then go home tomorrow. Review of Systems 10 ROS reviewed and are negative except as noted in HPI Past Medical History Past Medical History: Cancer Additional Past Medical History / Comment(s): sinus infection, maxilla CA History of Any Multi-Drug Resistant Organisms: None Reported Past Surgical History: No Surgical Hx Reported Additional Past Surgical History / Comment(s): 01/2021 cancer removal surgery left sinus cavity/maxilla Past Psychological History: No Psychological Hx Reported Smoking Status: Former smoker Past Alcohol Use History: Occasional Past Drug Use History: None Reported Medications and Allergies Home Medications Medication Instructions Recorded Confirmed Type Citalopram Hydrobromide [CeleXA] 40 mg PO HS 11/30/20 02/04/22 History clonazePAM [KlonoPIN] 1 mg PO HS 11/30/20 02/04/22 History Cetirizine HCl [Zyrtec] 10 mg PO DAILY 02/04/22 02/04/22 History Docusate Sodium [Dok] 100 mg PO BID PRN 02/04/22 02/04/22 History HYDROcodone/APAP 5-325MG [[place] 1 tab PO Q6HR PRN 02/04/22 02/04/22 History 5-325] Pregabalin [Lyrica] 150 mg PO DAILY 02/04/22 02/04/22 History Sucralfate [Carafate] 1 gm PO ACHS 02/04/22 02/04/22 History polyethylene glycoL 3350 [Miralax] 17 gm PO DAILY PRN 02/04/22 02/04/22 History predniSONE 5 mg PO DAILY 02/04/22 02/04/22 History Allergies Allergy/AdvReac Type Severity Reaction Status Date / Time No Known Allergies Allergy Verified 02/04/22 16:18 Physical Exam Osteopathic Statement: *. No significant issues noted on an osteopathic structural exam other than those noted in the History and Physical/Consult. Vitals: Vital Signs Temp Pulse Resp BP Pulse Ox 02/04/22 16:19 61 12 117/79 02/04/22 14:12 97.6 F 118 H 18 99/70 96 Intake and Output 02/04/22 02/04/22 02/04/22 06:59 14:59 22:59 Other: Weight 68.039 kg General: [Alert and oriented, well nourished, no acute distress]. Eye: [PERRL, EOMI, normal conjunctiva]. HENT: [Normocephalic, clear tympanic membranes, normal hearing, moist oral mucosa, no scleral icterus, no sinus tenderness]. Neck: [Supple, non-tender, no carotid bruits, no JVD, no lymphadenopathy]. Lungs: [Clear to auscultation and percussion, non-labored respiration]. Heart: [Normal rate, regular rhythm, no murmur, gallop or edema]. Abdomen: [Soft, non-tender, non-distended, normal bowel sounds, no masses]. Musculoskeletal: [Normal range of motion and strength, no tenderness or s welling]. Skin: [Skin is warm, dry and pink, no rashes or lesions]. Neurologic: [Awake, alert, and oriented X3, CN II-XII intact]. Psychiatric: [Cooperative, appropriate mood and affect]. Results CBC & Chem 7: 02/04/22 14:42 02/04/22 14:42 Labs: Abnormal Lab Results - Last 24 Hours (Table) 02/04/22 02/04/22 Range/Units 14:42 14:42 Sodium 135 L (137-145) mmol/L Potassium 5.2 H (3.5-5.1) mmol/L Chloride 96 L (98-107) mmol/L Glucose 112 H (74-99) mg/dL Plasma Lactic Acid Daljit 2.1 H* (0.7-2.0) mmol/L Calcium 10.3 H (8.4-10.2) mg/dL Alkaline Phosphatase 128 H (38-126) U/L Total Protein 8.3 H (6.3-8.2) g/dL Assessment and Plan Assessment: Dehydration Generalized weakness secondary to dehydration Poor PO intake secondary to unable to open jaw fully after surgery to remove his sinus malignancy -Patient will be hydrated overnight and we'll monitor his urine output -Patient will reschedule his surgery at [facility] for his jaw -Resume fluids at 125 mL an hour Anxiety and depression Resume home meds CODE STATUS:full code DVT prophylaxis: mechanical Discussed with: Patient, ER, rn Anticipated length of stay < than [address]: home A total of 50 minutes was spent on the care of this complex patient more than 50% of the time was spent in counseling and care coordination.
[2022-02-04] MEDS: SODIUM CHLORIDE 0.9% 1,000 ML IV SCH (18:55)
[2022-02-04] MEDS: SUCRALFATE 1 GM TAB PO SCH (20:20)
[2022-02-04 20:37] VITALS: RESP 18
[2022-02-04] MEDS ORDERED: clonazePAM 1 MG TAB PO SCH (21:00)
[2022-02-04] MEDS ORDERED: CITALOPRAM HYDROBROMIDE 20 MG TAB PO SCH (21:00)
[2022-02-04] MEDS ORDERED: MELATONIN 3 MG TABLET PO SCH (21:15)
[2022-02-05] MEDS: SUCRALFATE 1 GM TAB PO SCH (06:17)
[2022-02-05] MEDS: SODIUM CHLORIDE 0.9% 1,000 ML IV SCH ×2 (06:19→09:16)
[2022-02-05 08:16] VITALS: BP 128/67; PULSE 64; TEMP 93
[2022-02-05] MEDS ORDERED: PREGABALIN 75 MG CAP PO SCH (09:00)
[2022-02-05] MEDS ORDERED: LORATADINE 10 MG TAB PO SCH (09:00)
[2022-02-05] MEDS ORDERED: predniSONE 5 MG TAB PO SCH (09:00)
--- NOTE | 2022-02-05 10:36 | P.DS ---
Providers Date of admission: 02/04/22 17:09 Expected date of discharge: 02/05/22 Attending physician: Jossy Kay DO Primary care physician: Renan Grewal [facility] Course: Discharge Diagnosis: Dehydration Generalized weakness 2/2 dehydration Poor intake due to jaw tightness which patient sustained after surgery to remove his sinus malignancy Anxiety and depression Hospital Course: Patient is a 68-year-old male with a past medical history of sinus malignancy status post resection and now with residual jaw tightness who presents to the ED with poor by mouth intake and generalized weakness. Patient was scheduled for a surgery for his jaw at [facility] to help open his jaw more so that he can eat more. Patient states that he has canceled his surgery as he will not be able to make it since he will be admitted to our hospital. In the ED patient was found to be dehydrated. He was given fluids however he did not have any urine output so ED physician wanted to admit him. Patient was started on IV fluids at 1 25 mL an hour. The following day patient was feeling better. He was then looking forward to going home. Patient seen and examined at bedside on 02/05/2022 Vital signs reviewed and stable. General: [non toxic], [no distress], [appears at stated age] Derm: [warm], [dry] Head: [atraumatic], [normocephalic], [symmetric] Eyes: [EOMI], [no lid lag], [anicteric sclera] Mouth: [no lip lesion], [mucus membranes moist] Cardiovascular: [S1S2 reg], [no murmur], [positive posterior tibial pulse bilateral], Lungs: [CTA bilateral], [no rhonchi, no rales] , [no accessory muscle use] Abdominal: [soft], [ nontender to palpation], [no guarding], [no appreciable organomegaly] Ext: [no gross muscle atrophy], [no edema], [no contractures] Neuro: [ CN II-XI grossly intact], [no focal neuro deficits] Psych: [Alert], [oriented], [appropriate affect] A total of [25] minutes of time were spent preparing this complex discharge summary . Patient Condition at Discharge: Stable Plan - Discharge Summary Discharge Rx Participant: No New Discharge Prescriptions: Continue clonazePAM [KlonoPIN] 1 mg PO HS Citalopram Hydrobromide [CeleXA] 40 mg PO HS predniSONE 5 mg PO DAILY Cetirizine HCl [Zyrtec] 10 mg PO DAILY Docusate Sodium [Dok] 100 mg PO BID PRN PRN Reason: Constipation polyethylene glycoL 3350 [Miralax] 17 gm PO DAILY PRN PRN Reason: Constipation Sucralfate [Carafate] 1 gm PO ACHS Pregabalin [Lyrica] 150 mg PO DAILY HYDROcodone/APAP 5-325MG [[place] 5-325] 1 tab PO Q6HR PRN PRN Reason: Pain Discharge Medication List Citalopram Hydrobromide [CeleXA] 40 mg PO HS 11/30/20 [History] clonazePAM [KlonoPIN] 1 mg PO HS 11/30/20 [History] Cetirizine HCl [Zyrtec] 10 mg PO DAILY 02/04/22 [History] Docusate Sodium [Dok] 100 mg PO BID PRN 02/04/22 [History] HYDROcodone/APAP 5-325MG [[place] 5-325] 1 tab PO Q6HR PRN 02/04/22 [History] Pregabalin [Lyrica] 150 mg PO DAILY 02/04/22 [History] Sucralfate [Carafate] 1 gm PO ACHS 02/04/22 [History] polyethylene glycoL 3350 [Miralax] 17 gm PO DAILY PRN 02/04/22 [History] predniSONE 5 mg PO DAILY 02/04/22 [History] Follow up Appointment(s)/Referral(s): Renan Grewal DO [Primary Care Provider] - 1-2 days Discharge Disposition: HOME SELF-CARE
[2022-02-05] MEDS ORDERED: KETOROLAC 15 MG/ML 1 ML VIAL IVP STA (11:27)
== END 2022-02-05 12:22 | disposition home or self-care (01) ==
LOC: EC 13:43 → 6NMEDSUR 17:09
PROVIDERS: ADMIT Internal Medicine; ATTEND Internal Medicine
DX: E86.0 Dehydration (principal); M27.8 Other specified diseases of jaws; F41.9 Anxiety disorder, unspecified; F32.A Depression, unspecified; Z85.22 Personal history of malignant neoplasm of nasal cavities, middle ear, and accessory sinuses; Z98.890 Other specified postprocedural states; Z87.891 Personal history of nicotine dependence; Z79.52 Long term (current) use of systemic steroids; Z79.899 Other long term (current) drug therapy
CPT/HCPCS: 96376 ×2; 96374; 99285; 36415; 93005; 80053; 83605; 83735; 84484; 85025; 85610; 85730; G0378 ×2; J1885 ×2; J7512

== ENCOUNTER 2022-02-16 13:18 | Emergency (ER) | payer MEDICARE, BC, OTHER ==
[2022-02-16] MEDS ORDERED: SODIUM CHLORIDE 0.9% 500 ML 500 ML IV STA (13:37)
[2022-02-16] MEDS ORDERED: METOCLOPRAMIDE 5 MG/ML 2 ML VIAL IVP STA (13:37)
[2022-02-16] MEDS ORDERED: MORPHINE SULFATE 4 MG/ML SYRINGE IV STA (13:37)
--- NOTE | 2022-02-16 13:43 | ED ---
General Adult HPI - General Chief complaint: Headache Stated complaint: headache Time Seen by Provider: 02/16/22 13:28 Source: patient, family, RN notes reviewed Mode of arrival: ambulatory Limitations: no limitations - History of Present Illness Initial comments: Patient is a pleasant 77-year-old male presenting to the emergency department with concerns with headache. 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 Patient is one year post surgical resection and has also had this followed up with radiation and chemotherapy. Currently no treatment. Patient does have history of headaches similar to this previously and has been in the emergency department twice here for this. Patient has had some nausea and vomiting. Headache is frontal. Patient is on ibuprofen and Lyrica. Patient also recently started on a third medication which makes him feel lightheaded and does not want to take it. They believe this is Topamax. - Related Data Home Medications Medication Instructions Recorded Confirmed Citalopram Hydrobromide [CeleXA] 40 mg PO HS 11/30/20 02/04/22 clonazePAM [KlonoPIN] 1 mg PO HS 11/30/20 02/04/22 Cetirizine HCl [Zyrtec] 10 mg PO DAILY 02/04/22 02/04/22 Docusate Sodium [Dok] 100 mg PO BID PRN 02/04/22 02/04/22 HYDROcodone/APAP 5-325MG [[place] 1 tab PO Q6HR PRN 02/04/22 02/04/22 5-325] Pregabalin [Lyrica] 150 mg PO DAILY 02/04/22 02/04/22 Sucralfate [Carafate] 1 gm PO ACHS 02/04/22 02/04/22 polyethylene glycoL 3350 [Miralax] 17 gm PO DAILY PRN 02/04/22 02/04/22 predniSONE 5 mg PO DAILY 02/04/22 02/04/22 Previous Rx's Medication Instructions Recorded Amoxic-Pot Clav 875-125Mg 1 tab PO BID 14 Days #28 tab 02/16/22 [Augmentin 875-125] Ketorolac [Toradol] 10 mg PO Q6HR PRN #15 tab 02/16/22 Allergies Allergy/AdvReac Type Severity Reaction Status Date / Time No Known Allergies Allergy Verified 02/16/22 13:25 Review of Systems ROS Statement: Those systems with pertinent positive or pertinent negative responses have been documented in the HPI. ROS Other: All systems not noted in ROS Statement are negative. Constitutional: Denies: fever Eyes: Denies: eye pain ENT: Denies: ear pain Respiratory: Denies: cough Cardiovascular: Denies: chest pain Endocrine: Denies: fatigue Gastrointestinal: Reports: nausea, vomiting. Denies: abdominal pain Genitourinary: Denies: dysuria Musculoskeletal: Denies: back pain Skin: Denies: rash Neurological: Reports: as per HPI, headache. Denies: weakness Past Medical History Past Medical History: Cancer Additional Past Medical History / Comment(s): sinus infection, maxilla CA History of Any Multi-Drug Resistant Organisms: None Reported Past Surgical History: No Surgical Hx Reported Additional Past Surgical History / Comment(s): 01/2021 cancer removal surgery left sinus cavity/maxilla Past Anesthesia/Blood Transfusion Reactions: No Reported Reaction Past Psychological History: No Psychological Hx Reported Smoking Status: Former smoker Past Alcohol Use History: Occasional Past Drug Use History: None Reported General Exam Limitations: no limitations General appearance: alert, in no apparent distress Head exam: Present: normocephalic, other (No tenderness to the temporal artery either side) Eye exam: Present: normal appearance, PERRL, EOMI ENT exam: Present: other (Left-sided postoperative changes) Neck exam: Present: normal inspection Respiratory exam: Present: normal lung sounds bilaterally Cardiovascular Exam: Present: regular rate, normal rhythm GI/Abdominal exam: Present: soft. Absent: tenderness Extremities exam: Present: normal inspection Neurological exam: Present: alert, CN II-XII intact (Except somewhat limited exam secondary to postoperative changes left maxillary region). Absent: motor sensory deficit Expanded Neurological exam: Present: protecting the airway Speech: Present: fluid speech Motor strength exam: RUE: 5, LUE: 5, RLE: 5, LLE: 5 Eye Response: (4) open spontaneously Motor Response: (6) obeys commands Verbal Response: (5) oriented Psychiatric exam: Present: normal affect, normal mood Skin exam: Present: normal color Course Vital Signs 02/16/22 13:23 Temperature 97.5 F L Pulse Rate 78 Respiratory 20 Rate Blood Pressure 105/72 O2 Sat by Pulse 99 Oximetry - Reevaluation(s) Reevaluation #1: 02/16/22 14:55 Patient was reevaluated and mildly improved. Left mastoid region without tenderness or erythema or swelling. Patient and family updated. Medical Decision Making - Medical Decision Making Patient reevaluated and is feeling much better. Patient and family were fully updated on results including potential for recurrence of tumor. They're comfortable with discharge home and agreeable with close follow-up. - Lab Data Result diagrams: 02/16/22 13:55 02/16/22 13:55 Lab Results 02/16/22 02/16/22 02/16/22 Range/Units 13:55 13:55 13:55 WBC 5.1 (3.8-10.6) k/uL RBC 3.83 L (4.30-5.90) m/uL Hgb 12.4 L (13.0-17.5) gm/dL Hct 35.1 L (39.0-53.0) % MCV 91.5 (80.0-100.0) fL MCH 32.4 (25.0-35.0) pg MCHC 35.4 (31.0-37.0) g/dL RDW 13.1 (11.5-15.5) % Plt Count 229 (150-450) k/uL MPV 7.4 Neutrophils % 76 % Lymphocytes % 12 % Monocytes % 8 % Eosinophils % 1 % Basophils % 0 % Neutrophils # 3.9 (1.3-7.7) k/uL Lymphocytes # 0.6 L (1.0-4.8) k/uL Monocytes # 0.4 (0-1.0) k/uL Eosinophils # 0.1 (0-0.7) k/uL Basophils # 0.0 (0-0.2) k/uL PT 10.8 (9.0-12.0) sec INR 1.0 (<1.2) APTT 26.3 (22.0-30.0) sec Sodium 130 L (137-145) mmol/L Potassium 5.5 H (3.5-5.1) mmol/L Chloride 93 L (98-107) mmol/L Carbon Dioxide 29 (22-30) mmol/L Anion Gap 8 mmol/L BUN 15 (9-20) mg/dL Creatinine 0.70 (0.66-1.25) mg/dL Est GFR (CKD-EPI)AfAm >90 (>60 ml/min/1.73 sqM) Est GFR (CKD-EPI)NonAf >90 (>60 ml/min/1.73 sqM) Glucose 108 H (74-99) mg/dL Calcium 9.7 (8.4-10.2) mg/dL - Radiology Data Radiology results: report reviewed (CT brain does not reveal acute intercranial abnormality. There is maxillary sinus postsurgical changes with density that could be recurrent tumor. Or sinusitis. Left mastoiditis.) Disposition Clinical Impression: Headache Disposition: HOME SELF-CARE Condition: Stable Instructions (If sedation given, give patient instructions): Acute Headache (ED) Additional Instructions: Prescription sent to pharmacy. Please do follow-up with primary care physician in the next day or 2 for recheck. Please also follow-up with her specialist including oncologist and ENT. Return for increased pain, fever, weakness, worsening symptoms or any other concerns. Prescriptions: Amoxic-Pot Clav 875-125Mg [Augmentin 875-125] 1 tab PO BID 14 Days #28 tab Ketorolac [Toradol] 10 mg PO Q6HR PRN #15 tab PRN Reason: Pain Is patient prescribed a controlled substance at d/c from ED?: No Referrals: Renan Grewal DO [Primary Care Provider] - 1-2 days Time of Disposition: 16:09
[2022-02-16 14:07] LABS: Basophils % (A) 0 %; Eosinophils # (A) 0.1 k/uL (0-0.7); Eosinophils % (A) 1 %; HCT 35.1 % (39.0-53.0); HGB 12.4 gm/dL (13.0-17.5); Lymphocytes # (A) 0.6 k/uL (1.0-4.8); Lymphocytes % (A) 12 %; MCH 32.4 pg (25.0-35.0); MCHC 35.4 g/dL (31.0-37.0); MCV 91.5 fL (80.0-100.0); Mean Platelet Volume 7.4; Monocytes # (A) 0.4 k/uL (0-1.0); Monocytes % (A) 8 %; Neutrophils # (A) 3.9 k/uL (1.3-7.7); Neutrophils % (A) 76 %; Platelet Count 229 k/uL (150-450); RBC 3.83 m/uL (4.30-5.90); RDW 13.1 % (11.5-15.5); WBC 5.1 k/uL (3.8-10.6)
[2022-02-16 14:18] LABS: African American GFR (CKD) >90 (>60 ml/min/1.73 sqM); Anion Gap 8 mmol/L; Blood Urea Nitrogen 15 mg/dL (9-20); Calcium 9.7 mg/dL (8.4-10.2); Carbon Dioxide 29 mmol/L (22-30); Chloride 93 mmol/L (98-107); Glucose 108 mg/dL (74-99); Non-African American GFR(CKD) >90 (>60 ml/min/1.73 sqM); Potassium 5.5 mmol/L (3.5-5.1); Sodium 130 mmol/L (137-145)
[2022-02-16 14:39] LABS: Partial Thromboplastin Time 26.3 sec (22.0-30.0); Prothrombin Time 10.8 sec (9.0-12.0)
--- NOTE | 2022-02-16 14:40 | CT ---
EXAMINATION TYPE: CT brain wo/w con DATE OF EXAM: 02/16/2022 COMPARISON: 11/30/2020 HISTORY: h/o maxilla CA, headaches x4 days CT DLP: 2280.4 mGycm Automated exposure control for dose reduction was used. CONTRAST: Performed with IV Contrast, patient injected with 100 mL of Isovue 300. There is some mild cerebral cortical atrophy. There is no mass effect or midline shift. No sign of in tracranial hemorrhage. There is opacification of the sphenoid sinus. There is deformity of the left side of the maxilla with previous surgery and some resection of the maxillary sinus. There are surgical clips and a plate rec onstructing the floor of the left bony orbit. There is significant opacification left side mastoid si nus. There is soft tissue density at the site of the left maxillary sinus. This appears irregular and measures 4.7 x 2.8 cm. IMPRESSION: Cerebral atrophy. No acute intracranial abnormality. Post surgical changes at the left maxillary sinus with bone loss and increased soft tissue density th at could be recurrent tumor. There is evidence of left-sided mastoiditis which is new compared to the old exam. There is sphenoid sinus opacification that could be additional tumor or sinusitis and appe ars new compared to old exam.
[2022-02-16] MEDS ORDERED: KETOROLAC 15 MG/ML 1 ML VIAL IVP STA (14:53)
[2022-02-16] MEDS ORDERED: diphenhydrAMINE 50 MG/ML 1 ML VIAL IVP STA (14:53)
--- NOTE | 2022-02-16 16:11 | ED ---
Medical Decision Making - Lab Data Result diagrams: 02/16/22 13:55 02/16/22 13:55 Lab Results 02/16/22 02/16/22 02/16/22 Range/Units 13:55 13:55 13:55 WBC 5.1 (3.8-10.6) k/uL RBC 3.83 L (4.30-5.90) m/uL Hgb 12.4 L (13.0-17.5) gm/dL Hct 35.1 L (39.0-53.0) % MCV 91.5 (80.0-100.0) fL MCH 32.4 (25.0-35.0) pg MCHC 35.4 (31.0-37.0) g/dL RDW 13.1 (11.5-15.5) % Plt Count 229 (150-450) k/uL MPV 7.4 Neutrophils % 76 % Lymphocytes % 12 % Monocytes % 8 % Eosinophils % 1 % Basophils % 0 % Neutrophils # 3.9 (1.3-7.7) k/uL Lymphocytes # 0.6 L (1.0-4.8) k/uL Monocytes # 0.4 (0-1.0) k/uL Eosinophils # 0.1 (0-0.7) k/uL Basophils # 0.0 (0-0.2) k/uL PT 10.8 (9.0-12.0) sec INR 1.0 (<1.2) APTT 26.3 (22.0-30.0) sec Sodium 130 L (137-145) mmol/L Potassium 5.5 H (3.5-5.1) mmol/L Chloride 93 L (98-107) mmol/L Carbon Dioxide 29 (22-30) mmol/L Anion Gap 8 mmol/L BUN 15 (9-20) mg/dL Creatinine 0.70 (0.66-1.25) mg/dL Est GFR (CKD-EPI)AfAm >90 (>60 ml/min/1.73 sqM) Est GFR (CKD-EPI)NonAf >90 (>60 ml/min/1.73 sqM) Glucose 108 H (74-99) mg/dL Calcium 9.7 (8.4-10.2) mg/dL Disposition Clinical Impression: Headache Disposition: HOME SELF-CARE Condition: Stable Instructions (If sedation given, give patient instructions): Acute Headache (ED) Additional Instructions: Prescription sent to pharmacy. Please do follow-up with primary care physician in the next day or 2 for recheck. Please also follow-up with her specialist including oncologist and ENT. Return for increased pain, fever, weakness, worsening symptoms or any other concerns. Prescriptions: Amoxic-Pot Clav 875-125Mg [Augmentin 875-125] 1 tab PO BID 14 Days #28 tab Ketorolac [Toradol] 10 mg PO Q6HR PRN #15 tab PRN Reason: Pain Is patient prescribed a controlled substance at d/c from ED?: No Referrals: Renan Grewal DO [Primary Care Provider] - 1-2 days Lam Duval MD [STAFF PHYSICIAN] - 1-2 days Rob Isaac MD [STAFF PHYSICIAN] - 1-2 days Bulmaro Harley MD [STAFF PHYSICIAN] - 1-2 days Time of Disposition: 16:10
[2022-02-16 16:28] VITALS: BP 110/71; PULSE 62; RESP 16; TEMP 97.8
== END 2022-02-16 16:30 | disposition home or self-care (01) ==
LOC: EC 13:18
DX: R51.9 Headache, unspecified (principal); Z87.891 Personal history of nicotine dependence
CPT/HCPCS: 99284; 96374; 96375 ×3; 36415; 80048; 85025; 85610; 85730; 70470; 96361; J2270; J1200; J2765; J1885; Q9967

== ENCOUNTER 2022-02-17 11:57 | Inpatient (IN) | payer MEDICARE, BC, OTHER ==
[2022-02-17] MEDS ORDERED: HYDROmorphone 0.5 MG/0.5 ML SYRINGE IVP STA (15:59)
[2022-02-17] MEDS ORDERED: SODIUM CHLORIDE 0.9% 1,000 ML IV STA (15:59)
[2022-02-17] MEDS ORDERED: ONDANSETRON 4 MG/2 ML VIAL IVP STA (15:59)
--- NOTE | 2022-02-17 16:03 | ED ---
Nausea/Vomiting/Diarrhea HPI - General Source: patient, family, RN notes reviewed, old records reviewed Mode of arrival: wheelchair - History of Present Illness MD complaint: nausea, other (Decreased appetite, difficulty opening and closing his mouth to eat) -: month(s) Associated Abdominal Pain: No Severity scale (1-10): 2 Quality: constant Consistency: constant Improves with: none Worsens with: eating Associated Symptoms: other (20 pound weight loss in 1 month) <Tremaine Cordoba - Last Filed: 02/17/22 19:36> <Pedro Nagel - Last Filed: 02/17/22 20:17> - General Chief complaint: Nausea/Vomiting/Diarrhea Stated complaint: head pain-revisit Time Seen by Provider: 02/17/22 15:48 - History of Present Illness Initial comments: 67-year-old male presents to the emergency room with persistent nausea, inab ility to eat and dehydration. Was seen yesterday for the same. 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 He was treated yesterday with Augmentin for sinusitis found on CT. Directed to follow-up with his primary care doctor. He states that he continues to have facial pain with nausea and inability to eat. He's been seen by Dr. Duval with palliative care and was placed on Lyrica 2 weeks ago with no relief. He is also scheduled to see Dr. Howard at [facility] in [place] who wants to repeat his surgery but can't until he is off of ibuprofen. He states he needs additional pain medication and nutritional supplementation. Family requesting a PEG tube or TPN for nutrition. Patient states has lost 20 pounds in the past month due to inability to eat. (Tremaine Cordoba) - Related Data Home Medications Medication Instructions Recorded Confirmed Citalopram Hydrobromide [CeleXA] 40 mg PO HS 11/30/20 02/17/22 clonazePAM [KlonoPIN] 1 mg PO HS 11/30/20 02/17/22 Docusate Sodium [Dok] 100 mg PO BID PRN 02/04/22 02/17/22 polyethylene glycoL 3350 [Miralax] 17 gm PO DAILY PRN 02/04/22 02/17/22 Previous Rx's Medication Instructions Recorded Amoxic-Pot Clav 875-125Mg 1 tab PO BID 14 Days #28 tab 02/16/22 [Augmentin 875-125] Ketorolac [Toradol] 10 mg PO Q6HR PRN #15 tab 02/16/22 Allergies Allergy/AdvReac Type Severity Reaction Status Date / Time No Known Allergies Allergy Verified 02/17/22 17:42 Review of Systems ROS Other: All systems not noted in ROS Statement are negative. <Tremaine Cordoba - Last Filed: 02/17/22 19:36> ROS Other: All systems not noted in ROS Statement are negative. <Pedro Nagel - Last Filed: 02/17/22 20:17> ROS Statement: Those systems with pertinent positive or pertinent negative responses have been documented in the HPI. Past Medical History Past Medical History: Cancer Additional Past Medical History / Comment(s): sinus infection, maxilla CA History of Any Multi-Drug Resistant Organisms: None Reported Past Surgical History: No Surgical Hx Reported Additional Past Surgical History / Comment(s): 01/2021 cancer removal surgery le ft sinus cavity/maxilla Past Anesthesia/Blood Transfusion Reactions: No Reported Reaction Past Psychological History: No Psychological Hx Reported Smoking Status: Former smoker Past Alcohol Use History: Occasional Past Drug Use History: None Reported <Tremaine Cordoba - Last Filed: 02/17/22 19:36> General Exam Limitations: no limitations General appearance: alert, in no apparent distress Head exam: Present: other (Left maxillary sinus deformity status post surgery) Eye exam: Absent: scleral icterus, conjunctival injection ENT exam: Present: mucous membranes dry Expanded Mouth exam: Present: trismus. Absent: drooling, muffled voice Teeth exam: Present: other (Severe halitosis) Neck exam: Absent: tenderness, meningismus, thyromegaly Respiratory exam: Absent: respiratory distress, accessory muscle use Cardiovascular Exam: Present: regular rate GI/Abdominal exam: Present: soft Neurological exam: Present: alert, oriented X3 Psychiatric exam: Present: normal affect, normal mood Skin exam: Present: warm, dry. Absent: cyanosis, diaphoretic <Tremaine Cordoba - Last Filed: 02/17/22 19:36> Course Vital Signs 02/17/22 02/17/22 02/17/22 12:12 16:32 18:27 Temperature 97.6 F Pulse Rate 87 65 63 Respiratory 18 16 16 Rate Blood Pressure 102/67 135/85 130/82 O2 Sat by Pulse 99 98 99 Oximetry Medical Decision Making - Lab Data Result diagrams: 02/17/22 16:33 02/17/22 16:33 <Tremaine Cordoba - Last Filed: 02/17/22 19:36> - Lab Data Result diagrams: 02/17/22 16:33 02/17/22 16:33 <Pedro Nagel - Last Filed: 02/17/22 20:17> - Medical Decision Making Patient presents with facial pain, trismus and left ear pain unable to relieve pain with Motrin and Lyrica at home. Patient has been seeing palliative care Dr. Duval every 2-3 weeks. Was taking gabapentin with no relief states they tried Tegretol which he could not tolerate. Is now on Lyrica, for the past 2 weeks with no relief. Patient was seen yesterday for sinus pain and given morphine and Toradol. Prescribed Augmentin yesterday for sinusitis. CT of the brain performed yesterday shows a soft tissue density at the site of the left maxillary sinus is a regular measuring 4.7 x 2.8 cm. There is evidence of left-sided mastoiditis which is new compared to old exam dated 11/30/2020. There is sphenoid sinus opacification that could be additiona l tumor or sinusitis and appears new compared to November 2020. Patient states has not been able to open his jaw fully since surgery on 02/12/2021. Has been having facial pain for over a year with difficulty eating. He states has lost 20 pounds in the past month. Labs today show no evidence of leukocytosis. Hemoglobin and hematocrit are stable. Electrolytes unremarkable. Pending transfer to [facility] where patient sees Dr. Howard. Did speak with Dr. Prasad who is reviewing with his attending. Case was discussed and signed out to Dr. Nagel for continuation of care. (Tremaine Cordoba) I also spoke with Dr. Olivier with ENT who did recommend medical admission. I did speak with Dr. Garcia who states they're unable to accept transfer at this time secondary to arty boarding over [address] quispe again notified who will admit covering for Dr. Grewal. (Pedro Nagel) - Lab Data Lab Results 02/17/22 02/17/22 Range/Units 16:33 16:33 WBC 5.7 (3.8-10.6) k/uL RBC 3.96 L (4.30-5.90) m/uL Hgb 12.7 L (13.0-17.5) gm/dL Hct 36.0 L (39.0-53.0) % MCV 91.1 (80.0-100.0) fL MCH 32.0 (25.0-35.0) pg MCHC 35.1 (31.0-37.0) g/dL RDW 13.6 (11.5-15.5) % Plt Count 229 (150-450) k/uL MPV 7.6 Neutrophils % 78 % Lymphocytes % 10 % Monocytes % 8 % Eosinophils % 1 % Basophils % 0 % Neutrophils # 4.4 (1.3-7.7) k/uL Lymphocytes # 0.6 L (1.0-4.8) k/uL Monocytes # 0.4 (0-1.0) k/uL Eosinophils # 0.1 (0-0.7) k/uL Basophils # 0.0 (0-0.2) k/uL Sodium 132 L (137-145) mmol/L Potassium 5.5 H (3.5-5.1) mmol/L Chloride 93 L (98-107) mmol/L Carbon Dioxide 27 (22-30) mmol/L Anion Gap 12 mmol/L BUN 20 (9-20) mg/dL Creatinine 0.61 L (0.66-1.25) mg/dL Est GFR (CKD-EPI)AfAm >90 (>60 ml/min/1.73 sqM) Est GFR (CKD-EPI)NonAf >90 (>60 ml/min/1.73 sqM) Glucose 96 (74-99) mg/dL Calcium 9.6 (8.4-10.2) mg/dL Total Bilirubin 1.1 (0.2-1.3) mg/dL AST 43 (17-59) U/L ALT 17 (4-49) U/L Alkaline Phosphatase 108 (38-126) U/L Total Protein 8.4 H (6.3-8.2) g/dL Albumin 4.0 (3.5-5.0) g/dL Disposition Decision Date: 10/31/22 Decision Time: 16:53 <Riske,Tremaine - Last Filed: 02/17/22 19:36> Is patient prescribed a controlled substance at d/c from ED?: No <Pedro Nagel - Last Filed: 02/17/22 20:17> Clinical Impression: Weakness, Intractable pain, Sinusitis, Mastoiditis Disposition: ADMITTED IP TO THIS HOSP Referrals: Renan Grewal DO [Primary Care Provider] - 1-2 days
[2022-02-17 16:45] LABS: Basophils % (A) 0 %; Eosinophils # (A) 0.1 k/uL (0-0.7); Eosinophils % (A) 1 %; HGB 12.7 gm/dL (13.0-17.5); Lymphocytes # (A) 0.6 k/uL (1.0-4.8); Lymphocytes % (A) 10 %; MCHC 35.1 g/dL (31.0-37.0); MCV 91.1 fL (80.0-100.0); Mean Platelet Volume 7.6; Monocytes # (A) 0.4 k/uL (0-1.0); Monocytes % (A) 8 %; Neutrophils # (A) 4.4 k/uL (1.3-7.7); Neutrophils % (A) 78 %; Platelet Count 229 k/uL (150-450); RBC 3.96 m/uL (4.30-5.90); RDW 13.6 % (11.5-15.5); WBC 5.7 k/uL (3.8-10.6)
[2022-02-17 17:01] LABS: ALT 17 U/L (4-49); AST 43 U/L (17-59); African American GFR (CKD) >90 (>60 ml/min/1.73 sqM); Alkaline Phosphatase 108 U/L (38-126); Anion Gap 12 mmol/L; Blood Urea Nitrogen 20 mg/dL (9-20); Calcium 9.6 mg/dL (8.4-10.2); Carbon Dioxide 27 mmol/L (22-30); Chloride 93 mmol/L (98-107); Glucose 96 mg/dL (74-99); Non-African American GFR(CKD) >90 (>60 ml/min/1.73 sqM); Sodium 132 mmol/L (137-145); Total Bilirubin 1.1 mg/dL (0.2-1.3); Total Protein 8.4 g/dL (6.3-8.2)
[2022-02-17 17:06] LABS: Potassium 5.5 mmol/L (3.5-5.1)
[2022-02-17] MEDS ORDERED: CLINDAMYCIN 600 MG in DEXTROSE 5% IN WATER 50 ML IVPB STA ×2 (17:29)
[2022-02-17] MEDS ORDERED: NALOXONE 0.4 MG/ML 1 ML VIAL IV PRN (20:18)
[2022-02-17] MEDS ORDERED: ACETAMINOPHEN TAB 325 MG TAB PO PRN (20:18)
[2022-02-17] MEDS: SODIUM CHLORIDE 0.9% 1,000 ML IV SCH (20:30)
[2022-02-17] MEDS ORDERED: polyethylene glycoL 3350 17 GM POWD.PACK PO PRN (22:08)
[2022-02-17] MEDS ORDERED: DOCUSATE 100 MG CAP PO PRN (22:08)
[2022-02-17] MEDS: METOCLOPRAMIDE 5 MG/ML 2 ML VIAL IVP PRN (22:24)
[2022-02-17] MEDS: HYDROmorphone 1 MG/ML 1 ML SYRINGE IVP PRN (22:25)
[2022-02-17] MEDS: MELATONIN 5 MG TABLET PO SCH (22:27)
[2022-02-17] MEDS: CITALOPRAM HYDROBROMIDE 20 MG TAB PO SCH (22:32)
[2022-02-18] MEDS: WATER IVPB SCH ×3 (02:48→17:08)
[2022-02-18] MEDS: DEXTROSE IVPB SCH ×3 (02:48→17:08)
[2022-02-18] MEDS: [UNRECOGNIZED DRUG - OTHER] IVPB SCH ×3 (02:48→17:08)
[2022-02-18] MEDS: CLINDAMYCIN IVPB SCH ×3 (02:48→17:08)
[2022-02-18] MEDS: HYDROmorphone 1 MG/ML 1 ML SYRINGE IVP PRN ×4 (03:34→22:44)
[2022-02-18] MEDS: METOCLOPRAMIDE 5 MG/ML 2 ML VIAL IVP PRN (08:26)
[2022-02-18] MEDS ORDERED: HYDROcodone/APAP 5-325MG 1 EACH TAB PO PRN (09:35)
[2022-02-18] MEDS ORDERED: ACETAMINOPHEN TAB 325 MG TAB PO PRN (09:36)
[2022-02-18] MEDS ORDERED: METOCLOPRAMIDE 5 MG/ML 2 ML VIAL IVP STA ×2 (10:22)
[2022-02-18] MEDS ORDERED: PROMETHAZINE HCL 6.25 MG/5 ML CUP PO PRN (10:38)
[2022-02-18] MEDS: PANTOPRAZOLE 40 MG/10 ML VIAL IV SCH (10:45)
[2022-02-18] MEDS ORDERED: traMADol 50 MG TAB PO PRN (11:59)
--- NOTE | 2022-02-18 12:37 | P.HPIM ---
History of Present Illness This is a pleasant 67 years old male with past medical history of sinus infection, maxilla CA, depression Patient presents because of nausea vomiting 4 days (patient denies blood in the vomitus, he is vomiting about 3-4 times per day). also for left facial pain (this is at least the fifth hospital visit in this facility for facial pain ) Patient was admitted on 02/04 and discharged on 02/05 for the and facial pain at that time patient reported not eating well also, he supposed to get surgery because of his limited ability to open his jaw so he can open it more and eat better , at [facility] in [place] however patient canceled that surgery because he was admitted to our hospital secondary to pain as above. On dischar ge she did not receive any pain medicine, patient states that also he could not tolerate hydrocodone because of vomiting. Patient still currently suffering from severe left facial pain at 9-10/ in severity Patient says he was not able to eat and drink well over the last 6 months and he lost about 40 pounds. As per at bedside patient feels very weak and has done nothing over the last month because of his severe weakness. He denies smoking alcohol or illicit drugs. No postnasal hopelessness. Yesterday ER physician contacted [facility] however patient transfer was retracted and patient was admitted to our service. Patient is hemodynamically stable. He is afebrile. Labs showed WBC 5.7, hemoglobin 12.7. Sodium 132, potassium 5.5 but the sample hemolyzed No imaging done in the emergency room On reviewing the records patient had surgery on 12/26/[address] Moreau for left chronic sinusitis with left maxillary sinus mass and he underwent left sided endoscopic sinus surgery including (Left-sided endoscopic sinus surgery including left maxillary antrostomy with removal of tissue from the maxillary sinus/biopsy, left anterior and posterior ethmoidectomy, left frontal sinusotomy with removal of tissue from the left frontal sinus and exploration) Here he tried Reglan 5 mg and he did not help much and he agrees to increase the dose to 10 mg, risks and benefits are explained and patient and are agreeable Review of Systems Review of systems -CONSTITUTIONAL: No fever, positive for malaise, and fatigue. But patient compla ins from generalized weakness HEENT: No recent visual problems or hearing problems. Denied any sore throat. CARDIOVASCULAR: No orthopnea, PND, no palpitations, no syncope. PULMONARY: No shortness of breath, no cough, no hemoptysis. GASTROINTESTINAL: No diarrhea, no abdominal pain. Normoactive bowel sounds. NEUROLOGICAL: No headaches, no abdomen weakness, no numbness. HEMATOLOGICAL: Denies any bleeding or petechiae. GENITOURINARY: Denies any burning micturition, frequency, or urgency. MUSCULOSKELETAL/RHEUMATOLOGICAL: Denies any joint pain, swelling, or any muscle pain. ENDOCRINE: Denies any polyuria or polydipsia. Past Medical History Past Medical History: Cancer Additional Past Medical History / Comment(s): sinus infection, maxilla CA History of Any Multi-Drug Resistant Organisms: None Reported Past Surgical History: No Surgical Hx Reported Additional Past Surgical History / Comment(s): 01/2021 cancer removal surgery left sinus cavity/maxilla Past Anesthesia/Blood Transfusion Reactions: No Reported Reaction Past Psychological History: No Psychological Hx Reported Smoking Status: Former smoker Past Alcohol Use History: Occasional Past Drug Use History: None Reported Medications and Allergies Home Medications Medication Instructions Recorded Confirmed Type Citalopram Hydrobromide [CeleXA] 40 mg PO HS 11/30/20 02/17/22 History clonazePAM [KlonoPIN] 1 mg PO HS 11/30/20 02/17/22 History Docusate Sodium [Dok] 100 mg PO BID PRN 02/04/22 02/17/22 History polyethylene glycoL 3350 [Miralax] 17 gm PO DAILY PRN 02/04/22 02/17/22 History Amoxic-Pot Clav 875-125Mg 1 tab PO BID 14 Days #28 tab 02/16/22 02/17/22 Rx [Augmentin 875-125] Ketorolac [Toradol] 10 mg PO Q6HR PRN #15 tab 02/16/22 02/17/22 Rx Allergies Allergy/AdvReac Type Severity Reaction Status Date / Time No Known Allergies Allergy Verified 02/17/22 17:42 Physical Exam Vitals: Vital Signs Temp Pulse Pulse Resp BP BP Pulse Ox 02/18/22 07:41 97.4 F L 62 17 121/60 95 02/18/22 02:48 16 02/18/22 02:00 97.8 F 62 16 116/50 95 02/17/22 18:27 63 16 130/82 99 02/17/22 16:32 65 16 135/85 98 02/17/22 12:12 97.6 F 87 18 102/67 99 Intake and Output 02/17/22 02/18/22 02/18/22 22:59 06:59 14:59 Output Total 250 Balance -250 Output: Emesis 250 Other: Voiding Method Toilet Urinal # Voids 1 Weight 68.039 kg -GENERAL: The patient is alert and oriented x3, patient in severe distress due to pain, cachectic. And dehydrated HEENT: Pupils are round and equally reacting to light. EOMI. No scleral icterus. No conjunctival pallor. Normocephalic, atraumatic. No pharyngeal erythema. No thyromegaly. Patient has a scar at the left cheek, patient has limited ability to open the jaw, dry mucous membranes CARDIOVASCULAR: S1 and S2 present. No murmurs, rubs, or gallops. PULMONARY: Chest is clear to auscultation, no wheezing or crackles. ABDOMEN: Soft, nontender, nondistended, normoactive bowel sounds. No palpable organomegaly. MUSCULOSKELETAL: No joint swelling or deformity. EXTREMITIES: No cyanosis, clubbing, or pedal edema. NEUROLOGICAL: Gross neurological examination did not reveal any focal deficits. SKIN: No rashes. no petechiae. Results CBC & Chem 7: 02/17/22 16:33 02/17/22 16:33 Labs: Abnormal Lab Results - Last 24 Hours (Table) 02/17/22 02/17/22 Range/Units 16:33 16:33 RBC 3.96 L (4.30-5.90) m/uL Hgb 12.7 L (13.0-17.5) gm/dL Hct 36.0 L (39.0-53.0) % Lymphocytes # 0.6 L (1.0-4.8) k/uL Sodium 132 L (137-145) mmol/L Potassium 5.5 H (3.5-5.1) mmol/L Chloride 93 L (98-107) mmol/L Creatinine 0.61 L (0.66-1.25) mg/dL Total Protein 8.4 H (6.3-8.2) g/dL Thrombosis Risk Factor Assmnt - Choose All That Apply Any of the Below Risk Factors Present?: Yes Each Factor Represents 1 point: Minor surgery planned Other Risk Factors: Yes Each Risk Factor Represents 2 Points: Age 61-74 years Other congenital or acquired thrombophilia - If yes, enter type in comment: No Thrombosis Risk Factor Assessment Total Risk Factor Score: 3 Thrombosis Risk Factor Assessment Level: Moderate Risk Assessment and Plan Assessment: Severe face pain mainly on the left side times one month, continuous , failed previous inpatient or outpatient treatment Nausea vomiting, 4 days prior to admission, mostly secondary to above Inability to eat, for the last 1 month loss of weight, patient lost 40 pounds, secondary to above left Maxillary cancer, 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 History of sinus infection, he follows up with oncologist with plan for PET scan as an outpatient Depression, not an active issue Generalized weakness secondary to above Plan: Continue with IV fluids and changing to D5 normal saline Continue with Dilaudid, Start [place] when necessary as well as Tylenol when necessary. Continue with antiemetic, IV Zofran, Reglan 1 (risk of extra per mental side effects or muscle abnormals explained for him and patient agreeable) , and Phenergan syrup when necessary Case discussed with oncology team Consults surgery team (ordered an ED), follow-up the recommendation We'll do a swallow evaluation, at bedside and official with speech therapy. Plan for PEG tube for feeding tube is discussed with patient by oncology team but we will hold till swallow evaluation first and input from surgery team We'll ask for PT/OT evaluation Patient currently on clindamycin. We'll check forcalcitonin Labs and medication were reviewed.. Continue same treatment. Continue with symptomatic treatment. Resume home medication. Monitor labs and vitals. DVT and GI prophylaxis. Further recommendations as per clinical course of the patient DVT prophylaxis: Subcutaneous heparin GI Prophylaxis: Ppi PT/OT: Pending Prognosis is guarded
[2022-02-18 13:03] VITALS: BMI 20.3
--- NOTE | 2022-02-18 13:16 | P.PAINCN ---
History of Present Illness - Reason for Consult Consult date: 02/18/22 - History of Present Illness This is 77 years old male, with a history of left-sided maxillary cancer, diagnosed more than a year ago and he had surgical resection of the maxillary cancer which is followed with the radiation and chemotherapy, patient was treated previously with Lyrica 150 mg twice a day, which was stopped more than a week ago because of nausea, and patient feeling dizzy, patient currently admitted to [facility] with headache (frontal bilateral ) and severe facial pain, a shunt currently on Dilaudid 0.5 mg when necessary, and previously patient was on [place] 5/325 which causing him severe nausea, and he was treated in the past with Percocet which also made him nauseated, the headache is constant is not related to changing position, and he had some minimal pain with neck movement, patient denies any photophobia , Past Medical History Past Medical History: Cancer Additional Past Medical History / Comment(s): sinus infection, maxilla CA History of Any Multi-Drug Resistant Organisms: None Reported Past Surgical History: No Surgical Hx Reported Additional Past Surgical History / Comment(s): 01/2021 cancer removal surgery left sinus cavity/maxilla Past Anesthesia/Blood Transfusion Reactions: No Reported Reaction Past Psychological History: No Psychological Hx Reported Smoking Status: Former smoker Past Alcohol Use History: Occasional Past Drug Use History: None Reported Medications and Allergies Home Medications Medication Instructions Recorded Confirmed Type Citalopram Hydrobromide [CeleXA] 40 mg PO HS 11/30/20 02/17/22 History clonazePAM [KlonoPIN] 1 mg PO HS 11/30/20 02/17/22 History Docusate Sodium [Dok] 100 mg PO BID PRN 02/04/22 02/17/22 History polyethylene glycoL 3350 [Miralax] 17 gm PO DAILY PRN 02/04/22 02/17/22 History Amoxic-Pot Clav 875-125Mg 1 tab PO BID 14 Days #28 tab 02/16/22 02/17/22 Rx [Augmentin 875-125] Ketorolac [Toradol] 10 mg PO Q6HR PRN #15 tab 02/16/22 02/17/22 Rx Allergies Allergy/AdvReac Type Severity Reaction Status Date / Time No Known Allergies Allergy Verified 02/17/22 17:42 Physical Exam Vitals: Vital Signs Temp Pulse Pulse Resp BP BP Pulse Ox 02/18/22 07:41 97.4 F L 62 17 121/60 95 02/18/22 02:48 16 02/18/22 02:00 97.8 F 62 16 116/50 95 02/17/22 18:27 63 16 130/82 99 02/17/22 16:32 65 16 135/85 98 Intake and Output 02/17/22 02/18/22 02/18/22 22:59 06:59 14:59 Output Total 250 Balance -250 Output: Emesis 250 Other: Voiding Method Toilet Urinal # Voids 1 Weight 68.039 kg Review of systems -CONSTITUTIONAL: No fever, positive for malaise, and fatigue. But patient complains from generalized weakness HEENT: No recent visual problems or hearing problems. Denied any sore throat. CARDIOVASCULAR: No orthopnea, PND, no palpitations, no syncope. PULMONARY: No shortness of breath, no cough, no hemoptysis. GASTROINTESTINAL: No diarrhea, no abdominal pain. Normoactive bowel sounds. NEUROLOGICAL: No headaches, no abdomen weakness, no numbness. HEMATOLOGICAL: Denies any bleeding or petechiae. GENITOURINARY: Denies any burning micturition, frequency, or urgency. MUSCULOSKELETAL/RHEUMATOLOGICAL: Denies any joint pain, swelling, or any muscle pain. Physical exam General= patient alert and oriented x3. Eyes= normal , no icterus face= no erythema and no discharge, no allodynia Neck= supple. Lung= clear to auscultation bilaterally. Skin= no rashes. Musculoskeletal= normal range of motion, no focal neurological deficit Abdomen= soft non tenderness ENDOCRINE: Denies any polyuria or polydipsia. Results CBC & Chem 7: 02/17/22 16:33 02/17/22 16:33 Labs: Abnormal Lab Results - Last 24 Hours (Table) 02/17/22 02/17/22 Range/Units 16:33 16:33 RBC 3.96 L (4.30-5.90) m/uL Hgb 12.7 L (13.0-17.5) gm/dL Hct 36.0 L (39.0-53.0) % Lymphocytes # 0.6 L (1.0-4.8) k/uL Sodium 132 L (137-145) mmol/L Potassium 5.5 H (3.5-5.1) mmol/L Chloride 93 L (98-107) mmol/L Creatinine 0.61 L (0.66-1.25) mg/dL Total Protein 8.4 H (6.3-8.2) g/dL Assessment and Plan Plan: Assessment and Plan Assessment: Severe facial pain and headache Left side maxillary sinus status post surgical resection and radiation and chemo Recommend to start patient on Ultram 50 mg every 4-6 hours when necessary (he had side effects from [place] and Percocet , he had severe nausea ) Recommend to restart patient on Lyrica patient was previously on 150 mg twice a day which caused him some sedation, I recommend to start patient on Lyrica 75 mg twice a day which can be increased in the future to 3 times a day Recommend to continue NSAID (Toradol ) Time with Patient: Less than 30 PQRS Measure Charge Sheet - Pain Location Left Face Pharmacological Interventions: Discuss Pain Med Options PQRS Narrative: Do You Want the Pneumonia No Vaccine AT THIS TIME? Blood Pressure [Right Arm] 121/60 Blood Pressure 130/82 Pain Intensity [Left Face] 6 Pain Intensity 6 Pain Scale Used Numeric (1 - 10) Scale Used Numeric (1 - 10) Home Medications: Ambulatory Orders Citalopram Hydrobromide [CeleXA] 40 mg PO HS 11/30/20 clonazePAM [KlonoPIN] 1 mg PO HS 11/30/20 Docusate Sodium [Dok] 100 mg PO BID PRN 02/04/22 polyethylene glycoL 3350 [Miralax] 17 gm PO DAILY PRN 02/04/22 Amoxic-Pot Clav 875-125Mg [Augmentin 875-125] 1 tab PO BID 14 Days #28 tab 02/16/22 Ketorolac [Toradol] 10 mg PO Q6HR PRN #15 tab 02/16/22
[2022-02-18] MEDS: SODIUM CHLORIDE 0.9% 1,000 ML IV SCH (14:49)
[2022-02-18] MEDS: ONDANSETRON 4 MG/2 ML VIAL IVP PRN (17:16)
--- NOTE | 2022-02-18 20:32 | P.CONS ---
History of Present Illness - Reason for Consult Consult date: 02/18/22 Head/neck sq cell carcinoma Requesting physician: Pedro Nagel - Chief Complaint nerve pain - History of Present Illness Mr. Woods is a very pleasant pt of Dr. Duval with a mostly unremarkable PMH other then his malignancy Hx. He initially presented 12/08 with c/o left facial numbness. CT scan of brain on 11/30/2020 which revealed opacification of left maxillary sinus, 12/19/20 CT sinus revealed posterilateral septal wall destruction. Dr. Isaac saw pt and on 12/26/20 he underwent endoscopic evaluation, biopsy of left maxillary mass was positive for invasive squamous cell carcinoma. 01/15/21 MRI of neck revealed enhancing soft tissue mass centered in and destroying the posterior wall of left maxillary sinus, invading the retromaxillary fat and possibly into anterior aspect of upper masseter muscle, measured 4.5 x 3.8 x 2.3cm. 01/18/21 PET scan revealed suspicious uptake in the known left maxilla mass, otherwise negative. 02/12/21 Dr. 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 04/01/2021 pt was started on adjuvant cisplatin with XRT, completed on 05/13/2021. Spine MRI 07/28/21 revealed osteoporotic fracture, no evidence of metastatic disease. 07/26/21 repeat PET scan revealed a new soft tissue lesion at left frontal calvarium, was aspirated by Dr. Howard, no evidence of malignancy, however, he ended up having sinus surgery for fungal infection. He was seen several times in the office for pain control. ON 01/22/22 he was seen by Dr. Duval, pt on lyrica, pred and NSAIDS. He has cont to lose wt as he cannot open his mouth to eat, PET tube was discussed. He had f/u with Dr. Howard, additional surgery has been discussed to try and improve his ability to open his mouth. Pt is currently admitted with c/o intractable pain in the face, persistent, now progressive despite mult analgesics tried including NSAIDs, neuropathic meds and antidepressants. He denies fever, N,V, chest pain, bleeding, he can still swallow currently-at least what he can get in his mouth, has difficulty chewing. Review of Systems 10 point ROS is neg except as stated in HPI Past Medical History Past Medical History: Cancer Additional Past Medical History / Comment(s): sinus infection, maxilla CA History of Any Multi-Drug Resistant Organisms: None Reported Past Surgical History: No Surgical Hx Reported Additional Past Surgical History / Comment(s): 01/2021 cancer removal surgery left sinus cavity/maxilla Past Anesthesia/Blood Transfusion Reactions: No Reported Reaction Past Psychological History: No Psychological Hx Reported Smoking Status: Former smoker Past Alcohol Use History: Occasional Past Drug Use History: None Reported Medications and Allergies Home Medications Medication Instructions Recorded Confirmed Type Citalopram Hydrobromide [CeleXA] 40 mg PO HS 11/30/20 02/17/22 History clonazePAM [KlonoPIN] 1 mg PO HS 11/30/20 02/17/22 History Docusate Sodium [Dok] 100 mg PO BID PRN 02/04/22 02/17/22 History polyethylene glycoL 3350 [Miralax] 17 gm PO DAILY PRN 02/04/22 02/17/22 History Amoxic-Pot Clav 875-125Mg 1 tab PO BID 14 Days #28 tab 02/16/22 02/17/22 Rx [Augmentin 875-125] Ketorolac [Toradol] 10 mg PO Q6HR PRN #15 tab 02/16/22 02/17/22 Rx Allergies Allergy/AdvReac Type Severity Reaction Status Date / Time No Known Allergies Allergy Verified 02/17/22 17:42 Physical Exam Vitals: Vital Signs Temp Pulse Pulse Resp BP BP Pulse Ox 02/18/22 07:41 97.4 F L 62 17 121/60 95 02/18/22 02:48 16 02/18/22 02:00 97.8 F 62 16 116/50 95 02/17/22 18:27 63 16 130/82 99 02/17/22 16:32 65 16 135/85 98 Intake and Output 02/17/22 02/18/22 02/18/22 22:59 06:59 14:59 Output Total 250 Balance -250 Output: Emesis 250 Other: Voiding Method Toilet Urinal # Voids 1 Weight 68.039 kg 68.039 kg - Constitutional General appearance: cooperative, mild distress, thin - EENT Eyes: anicteric sclerae, EOMI ENT: hearing grossly normal - Neck surgical and radiation changes, tight skin Neck: no lymphadenopathy - Respiratory Respiratory: bilateral: CTA - Cardiovascular Rhythm: regular Heart sounds: normal: S1, S2 Abnormal Heart Sounds: no systolic murmur, no diastolic murmur, no rub, no S3 Gallop, no S4 Gallop, no click, no other leg Peripheral Edema: bilateral: None - Gastrointestinal General gastrointestinal: no absent bowel sounds, no decreased bowel sounds, no distended, no hepatomegaly, no hyperactive bowel sounds, normal bowel sounds, no organomegaly, no rigid, scaphoid, soft, no splenomegaly, no tenderness, no umbilical hernia, no ventral hernia - Integumentary radiation skin changes on face and neck - Neurologic Neurologic: CNII-XII intact (grossly) - Musculoskeletal Musculoskeletal: strength equal bilaterally - Psychiatric Psychiatric: A&O x's 3, appropriate affect, intact judgment & insight Results CBC & Chem 7: 02/17/22 16:33 02/17/22 16:33 Labs: Abnormal Lab Results - Last 24 Hours (Table) 02/17/22 02/17/22 Range/Units 16:33 16:33 RBC 3.96 L (4.30-5.90) m/uL Hgb 12.7 L (13.0-17.5) gm/dL Hct 36.0 L (39.0-53.0) % Lymphocytes # 0.6 L (1.0-4.8) k/uL Sodium 132 L (137-145) mmol/L Potassium 5.5 H (3.5-5.1) mmol/L Chloride 93 L (98-107) mmol/L Creatinine 0.61 L (0.66-1.25) mg/dL Total Protein 8.4 H (6.3-8.2) g/dL Assessment and Plan Plan: Case discussed with pt, and Attending. Recommendation is for PEG tube insertion of nutrition. This was previously discussed with pt and he did not want it but, he feels it may help him- especially if he goes to surgery, so he is agreeable to the same. Surgery consulted. Pain mgmt consultation to assess if a facial nerve block could help pt pain. Pt has PET already scheduled as well as his f/u. Pt and agree with plan. attests: I have seen and examined patient, performed H & P, developed impression and plan of care. Discussed with dictator. Agree with documentation, dictated as a scribe Time with Patient: Greater than 30
[2022-02-18] MEDS: PREGABALIN 75 MG CAP PO SCH (20:49)
[2022-02-18] MEDS: CITALOPRAM HYDROBROMIDE 20 MG TAB PO SCH (20:50)
[2022-02-18] MEDS: MELATONIN 5 MG TABLET PO SCH (20:50)
[2022-02-18] MEDS: DEXTROSE 5%-0.9% NACL 1,000 ML IV SCH (20:52)
[2022-02-18] MEDS ORDERED: CITALOPRAM HYDROBROMIDE 20 MG TAB PO SCH (21:00)
[2022-02-19] MEDS: DEXTROSE 5%-0.9% NACL 1,000 ML IV SCH ×2 (01:12→10:40)
[2022-02-19] MEDS: CLINDAMYCIN IVPB SCH ×3 (01:15→17:50)
[2022-02-19] MEDS: WATER IVPB SCH ×3 (01:15→17:50)
[2022-02-19] MEDS: DEXTROSE IVPB SCH ×3 (01:15→17:50)
[2022-02-19] MEDS: [UNRECOGNIZED DRUG - OTHER] IVPB SCH ×3 (01:15→17:50)
[2022-02-19] MEDS: HYDROmorphone 0.5 MG/0.5 ML SYRINGE IVP PRN ×5 (01:16→23:45)
[2022-02-19] MEDS: PANTOPRAZOLE 40 MG/10 ML VIAL IV SCH (08:03)
[2022-02-19] MEDS: ONDANSETRON 4 MG/2 ML VIAL IVP PRN (08:03)
[2022-02-19] MEDS: PREGABALIN 75 MG CAP PO SCH ×2 (08:05→20:46)
[2022-02-19 10:49] LABS: Basophils # (A) 0.02 X 10*3/uL (0.00-0.10); Basophils % (A) 0.4 %; Eosinophils # (A) 0.04 X 10*3/uL (0.04-0.35); Eosinophils % (A) 0.7 %; HCT 32.8 % (39.6-50.0); HGB 11.2 g/dL (13.0-17.0); Immature Grans, Automated 0.5 %; Lymphocytes # (A) 0.59 X 10*3/uL (0.90-5.00); Lymphocytes % (A) 10.7 %; MCH 31.5 pg (27.0-32.0); MCHC 34.1 g/dL (32.0-37.0); MCV 92.1 fL (80.0-97.0); Mean Platelet Volume 9.3 fL (9.5-12.2); Monocytes # (A) 0.62 X 10*3/uL (0.20-1.00); Monocytes % (A) 11.3 %; NRBC Per 100 WBC 0 /100 WBCS (0.0-0.0); Neutrophils % (A) 76.4 %; Platelet Count 240 X 10*3/uL (140-440); RBC 3.56 X 10*6/uL (4.40-5.60); RDW 13.4 % (11.5-14.5)
[2022-02-19 10:57] LABS: ALT 12 U/L (10-49); AST 13 U/L (14-35); African American GFR (CKD) 114.8 (60.0-200.0); Albumin 3.6 g/dL (3.8-4.9); Albumin/Globulin Ratio 1.13 (1.60-3.17); Alkaline Phosphatase 98 U/L (41-126); BUN/Creat Ratio 20.14 Ratio (12.00-20.00); Bilirubin, Conjugated <0.20 mg/dL (0.20-0.40); Blood Urea Nitrogen 14.1 mg/dL (9.0-27.0); Calcium 8.9 mg/dL (8.7-10.3); Chloride 97 mmol/L (96-109); Globulin 3.2 g/dL (1.6-3.3); Glucose 112 mg/dL (70-110); Magnesium 1.8 mg/dL (1.5-2.4); Potassium 4.2 mmol/L (3.5-5.5); Sodium 132 mmol/L (135-145); Total Protein 6.8 g/dL (6.2-8.2)
--- NOTE | 2022-02-19 12:36 | P.PN ---
Subjective Progress Note Date: 02/19/22 Principal diagnosis: Intractable pain from treatment of malignancy In f/u today pt face pain persists, his stomach is aching, upset, states antiemetics have not helped. Denies fever, vomiting, chest pain or SOB. He did agree to PEG tube. He is pending insurance approval so he can have surgery. Objective - Vital Signs Vital signs: Vital Signs Temp 97.1 F L 02/19/22 08:00 Pulse 60 02/19/22 08:00 Resp 16 02/19/22 10:09 BP 124/75 02/19/22 08:00 Pulse Ox 95 02/19/22 08:00 FiO2 Intake & Output 02/18/22 02/19/22 02/19/22 18:59 06:59 18:59 Intake Total 900 1000 Balance 900 1000 Weight 68.039 kg Intake: Intake, IV Titration 900 950 Amount Clindamycin 600 mg/50 ml- 50 D5w 600 mg In Dextrose/ Water 50 50ml.bag @ 46. 296 mls/hr IVPB Q8H ANJU Rx#:[id number] Dextrose 5%-0.9% NaCl 1, 675 000 ml @ 75 mls/hr IV . [id number] ANJU Rx#:[id number] Sodium Chloride 0.9% 1, 900 225 000 ml @ 75 mls/hr IV . [id number] ANJU Rx#:[id number] Oral 50 Other: Voiding Method Toilet Toilet Urinal Urinal # Voids 1 1 - Constitutional General appearance: Present: cooperative, mild distress, thin - EENT Eyes: Present: anicteric sclerae, EOMI ENT: Present: hearing grossly normal - Respiratory Details: resp even and unlabored - Cardiovascular Details: skin warm and dry to touch - Musculoskeletal Musculoskeletal: Present: strength equal bilaterally - Psychiatric Psychiatric: Present: A&O x's 3, appropriate affect, intact judgment & insight - Labs CBC & Chem 7: 02/19/22 06:51 02/19/22 06:51 Labs: Abnormal Lab Results - Last 24 Hours (Table) 02/19/22 02/19/22 Range/Units 06:51 06:51 RBC 3.56 L (4.40-5.60) X 10*6/uL Hgb 11.2 L (13.0-17.0) g/dL Hct 32.8 L (39.6-50.0) % MPV 9.3 L (9.5-12.2) fL Lymphocytes # 0.59 L (0.90-5.00) X 10*3/uL Sodium 132 L (135-145) mmol/L Carbon Dioxide 28.0 H (20.0-27.5) mmol/L Anion Gap 7.00 L (10.00-18.00) mmol/L BUN/Creatinine Ratio 20.14 H (12.00-20.00) Ratio Glucose 112 H (70-110) mg/dL Conjugated Bilirubin <0.20 L (0.20-0.40) mg/dL AST 13 L (14-35) U/L Albumin 3.6 L (3.8-4.9) g/dL Albumin/Globulin Ratio 1.13 L (1.60-3.17) g/dL Assessment and Plan (1) Intractable pain Current Visit: Yes Status: Chronic Priority: High Code(s): R52 - PAIN, UNSPECIFIED SNOMED Code(s): 41184148 (2) Head and neck malignancy Current Visit: Yes Status: Chronic Priority: Low Code(s): C76.0 - MALIGNANT NEOPLASM OF HEAD, FACE AND NECK SNOMED Code(s): 643410085 Plan: Pt has been seen by pain mgmt. Medications adjusted, will see how pt does. Pt is agreeable for PEG tube insertion for nutrition. He is unable to open his mouth adequately to take food in and manipulate it to swallow. Surgery consulted. Pt has PET already scheduled as well as his f/u.
--- NOTE | 2022-02-19 13:01 | P.GSCN ---
History of Present Illness Consult date: 02/19/22 History of present illness: CHIEF COMPLAINT: Inability to eat HISTORY OF PRESENT ILLNESS: This is a 67-year-old male with a known history of left maxillary sinus cancer status post surgery and chemo. Surgery was completed about a year ago. Patient reports since then he has had difficulty with opening his mouth and difficulty with eating. He's had a 20 pound weight loss. Surgical service has been consulted for PEG tube placement. PAST MEDICAL HISTORY: See below PAST SURGICAL HISTORY: See below MEDICATIONS: See below ALLERGIES: See below SOCIAL HISTORY: No illicit drug use. REVIEW OF SYSTEMS: CONSTITUTIONAL: Denies fever or chills. HEENT: Denies blurred vision, vision changes, or eye pain. Denies hemoptysis CARDIOVASCULAR: Denies chest pain or pressure. RESPIRATORY: No shortness of breath. GASTROINTESTINAL: No abdominal pain. No vomiting. HEMATOLOGIC: Denies bleeding disorders. GENITOURINARY: Denies any blood in urine or increased urinary frequency. SKIN: Denies pruitis. Denies rash. PHYSICAL EXAM: VITAL SIGNS: Reviewed GENERAL: no acute distress. ABDOMEN: Soft. Nondistended. Nontender NEUROLOGIC: Alert and oriented. Cranial nerves II through XII grossly intact. LABORATORY DATA: WBC is 5.50 Hgb 11.2 platelets 240 Sodium is 132 potassium 4.2 creatinine 0.7 Magnesium is 1.8 Total bilirubin 0.30 AST 13 ALT 12 alk phos 98 Albumin 3.6 IMAGING: ASSESSMENT: 1. Poor oral intake due to inability to open mouth since surgery for his sinus cancer 2. History of left maxillary sinus cancer status post surgery and chemo 3. Moderate protein calorie malnutrition PLAN: -Patient scheduled for EGD and PEG tube placement tomorrow with Dr. muniz. If unable to proceed with EGD due to inability of patient opening his mouth wide enough for endoscopy scope we'll then need to proceed with open gastrostomy on Thursday. -Keep patient nothing by mouth after midnight -Continue IV fluid -Continue supportive care Thank you for this consultation Physician Operator [employer] note has been reviewed by physician. Signing provider agrees with the documented findings, assessment, and plan of care. Past Medical History Past Medical History: Cancer Additional Past Medical History / Comment(s): sinus infection, maxilla CA History of Any Multi-Drug Resistant Organisms: None Reported Past Surgical History: No Surgical Hx Reported Additional Past Surgical History / Comment(s): 01/2021 cancer removal surgery left sinus cavity/maxilla Past Anesthesia/Blood Transfusion Reactions: No Reported Reaction Past Psychological History: No Psychological Hx Reported Smoking Status: Former smoker Past Alcohol Use History: Occasional Past Drug Use History: None Reported Medications and Allergies Home Medications Medication Instructions Recorded Confirmed Type Citalopram Hydrobromide [CeleXA] 40 mg PO HS 11/30/20 02/17/22 History clonazePAM [KlonoPIN] 1 mg PO HS 11/30/20 02/17/22 History Docusate Sodium [Dok] 100 mg PO BID PRN 02/04/22 02/17/22 History polyethylene glycoL 3350 [Miralax] 17 gm PO DAILY PRN 02/04/22 02/17/22 History Amoxic-Pot Clav 875-125Mg 1 tab PO BID 14 Days #28 tab 02/16/22 02/17/22 Rx [Augmentin 875-125] Ketorolac [Toradol] 10 mg PO Q6HR PRN #15 tab 02/16/22 02/17/22 Rx Allergies Allergy/AdvReac Type Severity Reaction Status Date / Time No Known Allergies Allergy Verified 02/17/22 17:42 Surgical - Exam Vital Signs Temp Pulse Resp BP Pulse Ox 97.6 F 87 18 102/67 99 02/17/22 12:12 02/17/22 12:12 02/17/22 12:12 02/17/22 12:12 02/17/22 12:12 Results - Labs 02/19/22 06:51 02/19/22 06:51
[2022-02-19] MEDS: HYDROmorphone 1 MG/ML 1 ML SYRINGE IVP PRN ×2 (13:37→17:56)
--- NOTE | 2022-02-19 14:48 | P.GSCN ---
History of Present Illness Consult date: 02/19/22 Reason for Consult: Oral evaluation with increased facial pain and a post squamous cell carcinoma resected maxilla chemoradiation Requesting physician: Justina Nicole History of present illness: 67-year-old male presented to the hospital with increased difficulty opening his mouth and decreased oral intake. Patient had been seen by his oncologist a few months back and had been recommended he get feeding tube at that time. Patient had initially declined but his inability to open his mouth and intake orally continued to decline and recently saw help at the emergency room and was admitted. Patient is scheduled for a feeding tube tomorrow. Patient has generalized oral discomfort with limited opening which has slowly been getting worse over the past few months. Patient does not have a general dentist. Bianca ent is being followed by his cancer surgeon with [facility] as well as Dr. Duval through oncology. The reports he was due for follow-up CAT scan this month. Review of Systems - Constitutional Reports as per HPI - EENT Ears, nose, mouth and throat: Reports as per HPI - Cardiovascular Reports as per HPI - Respiratory Reports as per HPI - Gastrointestinal Reports as per HPI - Genitourinary Reports as per HPI - Musculoskeletal Reports as per HPI - Integumentary Reports as per HPI - Neurological Reports as per HPI - Psychiatric Reports as per HPI - Endocrine Reports as per HPI - Hematologic/Lymphatic Reports as per HPI - Allergic/Immunologic Reports as per HPI Past Medical History Past Medical History: Cancer Additional Past Medical History / Comment(s): sinus infection, maxilla CA History of Any Multi-Drug Resistant Organisms: None Reported Past Surgical History: No Surgical Hx Reported Additional Past Surgical History / Comment(s): 01/2021 cancer removal surgery left sinus cavity/maxilla Past Anesthesia/Blood Transfusion Reactions: No Reported Reaction Past Psychological History: No Psychological Hx Reported Smoking Status: Former smoker Past Alcohol Use History: Occasional Past Drug Use History: None Reported Medications and Allergies Home Medications Medication Instructions Recorded Confirmed Type Citalopram Hydrobromide [CeleXA] 40 mg PO HS 11/30/20 02/17/22 History clonazePAM [KlonoPIN] 1 mg PO HS 11/30/20 02/17/22 History Docusate Sodium [Dok] 100 mg PO BID PRN 02/04/22 02/17/22 History polyethylene glycoL 3350 [Miralax] 17 gm PO DAILY PRN 02/04/22 02/17/22 History Amoxic-Pot Clav 875-125Mg 1 tab PO BID 14 Days #28 tab 02/16/22 02/17/22 Rx [Augmentin 875-125] Ketorolac [Toradol] 10 mg PO Q6HR PRN #15 tab 02/16/22 02/17/22 Rx Allergies Allergy/AdvReac Type Severity Reaction Status Date / Time No Known Allergies Allergy Verified 02/17/22 17:42 Surgical - Exam Vital Signs Temp Pulse Resp BP Pulse Ox 97.6 F 87 18 102/67 99 02/17/22 12:12 02/17/22 12:12 02/17/22 12:12 02/17/22 12:12 02/17/22 12:12 Problem focused physical exam reveals limited mouth opening approximately 10 mm. Soft leukoplakia adjacent to his maxillary flap at the junction of the cheek approximately 1 cm x 1 cm wiped away. Consistent with thrush. Does not feel indurated. Generalized xerostomia with no tooth mobility or tooth pain. No dental decay noted visibly. Results Panoramic x-ray is unavailable - Labs 02/19/22 06:51 02/19/22 06:51 Abnormal Lab Results - Last 24 Hours (Table) 02/19/22 02/19/22 Range/Units 06:51 06:51 RBC 3.56 L (4.40-5.60) X 10*6/uL Hgb 11.2 L (13.0-17.0) g/dL Hct 32.8 L (39.6-50.0) % MPV 9.3 L (9.5-12.2) fL Lymphocytes # 0.59 L (0.90-5.00) X 10*3/uL Sodium 132 L (135-145) mmol/L Carbon Dioxide 28.0 H (20.0-27.5) mmol/L Anion Gap 7.00 L (10.00-18.00) mmol/L BUN/Creatinine Ratio 20.14 H (12.00-20.00) Ratio Glucose 112 H (70-110) mg/dL Conjugated Bilirubin <0.20 L (0.20-0.40) mg/dL AST 13 L (14-35) U/L Albumin 3.6 L (3.8-4.9) g/dL Albumin/Globulin Ratio 1.13 L (1.60-3.17) g/dL Diabetes panel 02/19/22 Range/Units 06:51 Sodium 132 L (135-145) mmol/L Potassium 4.2 (3.5-5.5) mmol/L Chloride 97 (96-109) mmol/L Carbon Dioxide 28.0 H (20.0-27.5) mmol/L BUN 14.1 (9.0-27.0) mg/dL Creatinine 0.7 (0.6-1.5) mg/dL Glucose 112 H (70-110) mg/dL Calcium 8.9 (8.7-10.3) mg/dL AST 13 L (14-35) U/L ALT 12 (10-49) U/L Alkaline Phosphatase 98 (41-126) U/L Total Protein 6.8 (6.2-8.2) g/dL Albumin 3.6 L (3.8-4.9) g/dL Calcium panel 02/19/22 Range/Units 06:51 Calcium 8.9 (8.7-10.3) mg/dL Albumin 3.6 L (3.8-4.9) g/dL Pituitary panel 02/19/22 Range/Units 06:51 Sodium 132 L (135-145) mmol/L Potassium 4.2 (3.5-5.5) mmol/L Chloride 97 (96-109) mmol/L Carbon Dioxide 28.0 H (20.0-27.5) mmol/L BUN 14.1 (9.0-27.0) mg/dL Creatinine 0.7 (0.6-1.5) mg/dL Glucose 112 H (70-110) mg/dL Calcium 8.9 (8.7-10.3) mg/dL Adrenal panel 02/19/22 Range/Units 06:51 Sodium 132 L (135-145) mmol/L Potassium 4.2 (3.5-5.5) mmol/L Chloride 97 (96-109) mmol/L Carbon Dioxide 28.0 H (20.0-27.5) mmol/L BUN 14.1 (9.0-27.0) mg/dL Creatinine 0.7 (0.6-1.5) mg/dL Glucose 112 H (70-110) mg/dL Calcium 8.9 (8.7-10.3) mg/dL Total Bilirubin 0.30 (0.30-1.20) mg/dL AST 13 L (14-35) U/L ALT 12 (10-49) U/L Alkaline Phosphatase 98 (41-126) U/L Total Protein 6.8 (6.2-8.2) g/dL Albumin 3.6 L (3.8-4.9) g/dL Assessment and Plan Assessment: Post surgical changes from deuce-maxillectomy with reconstruction, possibly a latissimus dorsi flap with scapula. Oral thrush noted on cheek. Generalized xerostomia. No obvious stent decay or abscess is noted. Plan: Ordered nystatin verbally through the nurse to assist with the oral thrush. Patient's was aware of system me a care and had brought his mouthwash from home. They maximum incisal opening is not likely to resolve due to radiation changes in the masticatory muscles. No obvious dental problems at this time but recommend patient get general dental care and preventative maintenance and is soonest convenience. Of course the possibility of recurrence cannot be ruled out and recommend patient to not delay follow-up computed tomography scan. Time with Patient: Greater than 30
[2022-02-19] MEDS: NYSTATIN 100,000 UNIT/ML SUSP 500,000 UNIT/5 ML CUP PO SCH ×3 (15:58→20:46)
[2022-02-19] MEDS: SUCRALFATE 1 GM TAB PO SCH ×2 (17:46→20:46)
[2022-02-19] MEDS: CITALOPRAM HYDROBROMIDE 20 MG TAB PO SCH (20:46)
[2022-02-19] MEDS: MELATONIN 5 MG TABLET PO SCH (20:46)
--- NOTE | 2022-02-19 22:19 | P.PN ---
Subjective This is a pleasant 67 years old male with past medical history of sinus infection, maxilla CA, depression Patient presents because of nausea vomiting 4 days (patient denies blood in the vomitus, he is vomiting about 3-4 times per day). also for left facial pain (this is at least the fifth hospital visit in this facility for facial pain ) Patient was admitted on 02/04 and discharged on 02/05 for the and facial pain at that time patient reported not eating well also, he supposed to get surgery because of his limited ability to open his jaw so he can open it more and eat better , at [facility] in [place] however patient canceled that surgery because he was admitted to our hospital secondary to pain as above. On discharge she did not receive any pain medicine, patient states that also he could not tolerate hydrocodone because of vomiting. Patient still currently suffering from severe left facial pain at 9-01/27 in severity Patient says he was not able to eat and drink well over the last 6 months and he lost about 40 pounds. As per at bedside patient feels very weak and has done nothing over the last month because of his severe weakness. He denies smoking alcohol or illicit drugs. No postnasal hopelessness. Yesterday ER physician contacted [facility] however patient transfer was retracted and patient was admitted to our service. Patient is hemodynamically stable. He is afebrile. Labs showed WBC 5.7, hemoglobin 12.7. Sodium 132, potassium 5.5 but the sample hemolyzed No imaging done in the emergency room On reviewing the records patient had surgery on 12/26/[address] Moreau for left chronic sinusitis with left maxillary sinus mass and he underwent left sided endoscopic sinus surgery including (Left-sided endoscopic sinus surgery including left maxillary antrostomy with removal of tissue from the maxillary sinus/biopsy, left anterior and posterior ethmoidectomy, left frontal sinusotomy with removal of tissue from the left frontal sinus and exploration) Here he tried Reglan 5 mg and he did not help much and he agrees to increase the dose to 10 mg, risks and benefits are explained and patient and are agreeable 02-19-22 Patient pain is better controlled after seen by pain physician and he was started on Lyrica and Ultram Patient still have difficulty eating because he cannot open wound, oncology team recommended PEG tube placement, oncology team already consulted surgery for plan murphy for EGD and PEG tube possibly tomorrow Oral surgeon also is going to see the patient Patient remains on D5 normal saline at 75 mL per hour Clindamycin We'll continue monitoring closely Objective - Vital Signs Vital signs: Vital Signs Temp 97.1 F L 02/19/22 08:00 Pulse 60 02/19/22 08:00 Resp 16 02/19/22 10:09 BP 124/75 02/19/22 08:00 Pulse Ox 95 02/19/22 08:00 FiO2 Intake & Output 02/18/22 02/19/22 02/19/22 18:59 06:59 18:59 Intake Total 900 1000 Balance 900 1000 Weight 68.039 kg Intake: Intake, IV Titration 900 950 Amount Clindamycin 600 mg/50 ml- 50 D5w 600 mg In Dextrose/ Water 50 50ml.bag @ 46. 296 mls/hr IVPB Q8H ANJU Rx#:[id number] Dextrose 5%-0.9% NaCl 1, 675 000 ml @ 75 mls/hr IV . [id number] ANJU Rx#:[id number] Sodium Chloride 0.9% 1, 900 225 000 ml @ 75 mls/hr IV . [id number] ANJU Rx#:[id number] Oral 50 Other: Voiding Method Toilet Toilet Urinal Urinal # Voids 1 1 - Exam -GENERAL: The patient is alert and oriented x3, patient in severe distress due to pain, cachectic. Better hydrated HEENT: Pupils are round and equally reacting to light. EOMI. No scleral icterus. No conjunctival pallor. Normocephalic, atraumatic. No pharyngeal erythema. No thyromegaly. Patient has a scar at the left cheek, patient has limited ability to open the jaw, dry mucous membranes CARDIOVASCULAR: S1 and S2 present. No murmurs, rubs, or gallops. PULMONARY: Chest is clear to auscultation, no wheezing or crackles. ABDOMEN: Soft, nontender, nondistended, normoactive bowel sounds. No palpable organomegaly. MUSCULOSKELETAL: No joint swelling or deformity. EXTREMITIES: No cyanosis, clubbing, or pedal edema. NEUROLOGICAL: Gross neurological examination did not reveal any focal deficits. SKIN: No rashes. no petechiae. - Labs CBC & Chem 7: 02/19/22 06:51 02/19/22 06:51 Labs: Abnormal Lab Results - Last 24 Hours (Table) 02/19/22 02/19/22 Range/Units 06:51 06:51 RBC 3.56 L (4.40-5.60) X 10*6/uL Hgb 11.2 L (13.0-17.0) g/dL Hct 32.8 L (39.6-50.0) % MPV 9.3 L (9.5-12.2) fL Lymphocytes # 0.59 L (0.90-5.00) X 10*3/uL Sodium 132 L (135-145) mmol/L Carbon Dioxide 28.0 H (20.0-27.5) mmol/L Anion Gap 7.00 L (10.00-18.00) mmol/L BUN/Creatinine Ratio 20.14 H (12.00-20.00) Ratio Glucose 112 H (70-110) mg/dL Conjugated Bilirubin <0.20 L (0.20-0.40) mg/dL AST 13 L (14-35) U/L Albumin 3.6 L (3.8-4.9) g/dL Albumin/Globulin Ratio 1.13 L (1.60-3.17) g/dL Assessment and Plan Assessment: Severe face pain mainly on the left side times one month, continuous , failed previous inpatient or outpatient treatment Nausea vomiting, 4 days prior to admission, mostly secondary to above Inability to eat, for the last 1 month loss of weight, patient lost 40 pounds, secondary to above left Maxillary cancer, 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 History of sinus infection, he follows up with oncologist with plan for PET scan as an outpatient Depression, not an active issue Generalized weakness secondary to above Plan: Continue with IV fluids and changing to D5 normal saline Continue with Dilaudid, Start [place] when necessary as well as Tylenol when necessary. Continue with antiemetic, oncology team on board and the recommended PEG tube was surgery team consulted Consults surgery team (ordered an ED), follow-up the recommendation We'll ask for PT/OT evaluation Patient currently on clindamycin. Labs and medication were reviewed.. Continue same treatment. Continue with symptomatic treatment. Resume home medication. Monitor labs and vitals. DVT and GI prophylaxis. Further recommendations as per clinical course of the patient DVT prophylaxis: Subcutaneous heparin GI Prophylaxis: Ppi PT/OT: Pending Prognosis is guarded
[2022-02-20] MEDS: [UNRECOGNIZED DRUG - OTHER] IVPB SCH ×3 (01:51→17:32)
[2022-02-20] MEDS: DEXTROSE IVPB SCH ×3 (01:51→17:32)
[2022-02-20] MEDS: WATER IVPB SCH ×3 (01:51→17:32)
[2022-02-20] MEDS: CLINDAMYCIN IVPB SCH ×3 (01:51→17:32)
[2022-02-20] MEDS: HYDROmorphone 1 MG/ML 1 ML SYRINGE IVP PRN ×3 (02:45→20:19)
[2022-02-20] MEDS: DEXTROSE 5%-0.9% NACL 1,000 ML IV SCH ×2 (02:45→15:53)
[2022-02-20] MEDS: SUCRALFATE 1 GM TAB PO SCH ×4 (06:45→22:11)
[2022-02-20] MEDS: HYDROmorphone 0.5 MG/0.5 ML SYRINGE IVP PRN ×3 (06:45→13:16)
[2022-02-20] MEDS: NYSTATIN 100,000 UNIT/ML SUSP 500,000 UNIT/5 ML CUP PO SCH ×4 (08:57→22:11)
[2022-02-20] MEDS: PREGABALIN 75 MG CAP PO SCH ×2 (08:57→22:11)
[2022-02-20] MEDS: ONDANSETRON 4 MG/2 ML VIAL IVP PRN ×2 (08:57→15:46)
[2022-02-20] MEDS: PANTOPRAZOLE 40 MG/10 ML VIAL IV SCH (08:57)
[2022-02-20 10:52] LABS: Basophils # (A) 0.03 X 10*3/uL (0.00-0.10); Basophils % (A) 0.6 %; Eosinophils # (A) 0.07 X 10*3/uL (0.04-0.35); Eosinophils % (A) 1.3 %; HCT 33.6 % (39.6-50.0); HGB 11.3 g/dL (13.0-17.0); Immature Grans, Automated 0.4 %; Lymphocytes # (A) 0.74 X 10*3/uL (0.90-5.00); Lymphocytes % (A) 14.1 %; MCH 31.6 pg (27.0-32.0); MCHC 33.6 g/dL (32.0-37.0); MCV 93.9 fL (80.0-97.0); Mean Platelet Volume 9.8 fL (9.5-12.2); Monocytes # (A) 0.68 X 10*3/uL (0.20-1.00); NRBC Per 100 WBC 0 /100 WBCS (0.0-0.0); Neutrophils # (A) 3.71 X 10*3/uL (1.80-7.70); Neutrophils % (A) 70.6 %; Platelet Count 246 X 10*3/uL (140-440); RBC 3.58 X 10*6/uL (4.40-5.60); RDW 13.4 % (11.5-14.5); WBC 5.25 X 10*3/uL (4.50-10.00)
[2022-02-20 10:55] LABS: African American GFR (CKD) 119.6 (60.0-200.0); Anion Gap 9.4 mmol/L (10.00-18.00); BUN/Creat Ratio 17.67 Ratio (12.00-20.00); Blood Urea Nitrogen 11.2 mg/dL (9.0-27.0); Calcium 8.6 mg/dL (8.7-10.3); Carbon Dioxide 27.9 mmol/L (20.0-27.5); Magnesium 1.8 mg/dL (1.5-2.4); Non-African American GFR(CKD) 103.2 (60.0-200.0); Potassium 4.1 mmol/L (3.5-5.5)
[2022-02-20 12:32] VITALS: RESP 17
--- NOTE | 2022-02-20 12:48 | P.PN ---
Subjective Progress Note Date: 02/20/22 Principal diagnosis: Intractable pain from treatment of malignancy In f/u today Nothing much is changed, stomach discomfort is little better with the addition of Carafate. Patient has been assessed by DDS. Patient is reporting plans are for transfer to a tertiary facility for PEG tube placement. No fevers, vomiting, Chest pain or abdominal pain. Objective - Vital Signs Vital signs: Vital Signs Temp 97.4 F L 02/20/22 08:00 Pulse 65 02/20/22 08:00 Resp 18 02/20/22 09:30 BP 128/80 02/20/22 08:00 Pulse Ox 94 L 02/20/22 08:00 FiO2 Intake & Output 02/19/22 02/20/22 02/20/22 18:59 06:59 18:59 Other: Voiding Method Toilet Toilet Toilet Urinal # Voids 2 2 - Constitutional General appearance: Present: cooperative, no acute distress, thin - EENT Eyes: Present: anicteric sclerae, EOMI ENT: Present: hearing grossly normal - Respiratory Details: Respirations even and unlabored at rest - Cardiovascular Details: Skin warm and dry to the touch - Peripheral edema leg Peripheral Edema: bilateral: None - Musculoskeletal Musculoskeletal: Present: strength equal bilaterally - Psychiatric Psychiatric: Present: A&O x's 3, appropriate affect, intact judgment & insight - Labs CBC & Chem 7: 02/20/22 06:51 02/20/22 06:51 Labs: Abnormal Lab Results - Last 24 Hours (Table) 02/20/22 02/20/22 Range/Units 06:51 06:51 RBC 3.58 L (4.40-5.60) X 10*6/uL Hgb 11.3 L (13.0-17.0) g/dL Hct 33.6 L (39.6-50.0) % Lymphocytes # 0.74 L (0.90-5.00) X 10*3/uL Sodium 132 L (135-145) mmol/L Chloride 94 L (96-109) mmol/L Carbon Dioxide 27.9 H (20.0-27.5) mmol/L Anion Gap 9.40 L (10.00-18.00) mmol/L Calcium 8.6 L (8.7-10.3) mg/dL Assessment and Plan (1) Intractable pain Current Visit: Yes Status: Chronic Priority: High Code(s): R52 - PAIN, UNSPECIFIED SNOMED Code(s): 37733175 (2) Head and neck malignancy Current Visit: Yes Status: Chronic Priority: Low Code(s): C76.0 - MALIGNANT NEOPLASM OF HEAD, FACE AND NECK SNOMED Code(s): 947900264 Plan: Pt Pain is persistent despite numerous attempts to control. Patient is supposed to be having additional surgical intervention with head and neck malignancy surgeon. Hopefully, they can provide some relief of patient's symptoms during that procedure. Pt is agreeable for PEG tube insertion for nutrition. He is unable to open his mouth adequately to take food in and manipulate it to swallow. Surgery Has seen the patient, orders are in place for PEG tube placement. Patient was under the impression he was being transferred for this procedure. Nursing will clarify and update patient on plan of care. Pt has PET already scheduled as well as his f/u. Will if imaging appt need to be adjusted if too soon after surgery.
--- NOTE | 2022-02-20 12:48 | P.PN ---
Subjective Progress Note Date: 02/20/22 CHIEF COMPLAINT: Inability to eat HISTORY OF PRESENT ILLNESS: Patient scheduled for EGD today for PEG tube placement due to patient's poor oral intake due to inability to open mouth since surgery for his sinus cancer. Patient was unable to have EGD completed due to the inability of being able to open his mouth for the actual procedure. PHYSICAL EXAM: VITAL SIGNS: Reviewed. GENERAL: no acute distress. ABDOMEN: Soft. Nondistended. Nontender. NEUROLOGIC: Alert and oriented. Cranial nerves II through XII grossly intact. ASSESSMENT: 1. Poor oral intake due to inability to open mouth since surgery for his sinus cancer 2. History of left maxillary sinus cancer status post surgery and chemo 3. Moderate protein calorie malnutrition PLAN: -Dr. Quintero recommends transferring patient to [facility] for CT- guided PEG tube placement -Continue supportive care Physician Poultry Cutter note has been reviewed by physician. Signing provider agrees with the documented findings, assessment, and plan of care. Objective - Vital Signs Vital signs: Vital Signs Temp 97.4 F L 02/20/22 08:00 Pulse 65 02/20/22 08:00 Resp 17 02/20/22 12:26 BP 128/80 02/20/22 08:00 Pulse Ox 94 L 02/20/22 08:00 FiO2 Intake & Output 02/19/22 02/20/22 02/20/22 18:59 06:59 18:59 Other: Voiding Method Toilet Toilet Toilet Urinal # Voids 2 2 - Labs CBC & Chem 7: 02/20/22 06:51 02/20/22 06:51 Labs: Abnormal Lab Results - Last 24 Hours (Table) 02/20/22 02/20/22 Range/Units 06:51 06:51 RBC 3.58 L (4.40-5.60) X 10*6/uL Hgb 11.3 L (13.0-17.0) g/dL Hct 33.6 L (39.6-50.0) % Lymphocytes # 0.74 L (0.90-5.00) X 10*3/uL Sodium 132 L (135-145) mmol/L Chloride 94 L (96-109) mmol/L Carbon Dioxide 27.9 H (20.0-27.5) mmol/L Anion Gap 9.40 L (10.00-18.00) mmol/L Calcium 8.6 L (8.7-10.3) mg/dL
[2022-02-20 14:25] VITALS: BP 149/82; PULSE 63; TEMP 97.7
--- NOTE | 2022-02-20 14:34 | P.PN ---
Subjective Progress Note Date: 02/20/22 This is a pleasant 67 years old male with past medical history of sinus infection, maxilla CA, depression Patient presents because of nausea vomiting 4 days (patient denies blood in the vomitus, he is vomiting about 3-4 times per day). also for left facial pain (this is at least the fifth hospital visit in this facility for facial pain ) Patient was admitted on 02/04 and discharged on 02/05 for the and facial pain at that time patient reported not eating well also, he supposed to get surgery because of his limited ability to open his jaw so he can open it more and eat better , at [facility] in [place] however patient canceled that surgery because he was admitted to our hospital secondary to pain as above. On discharge she did not receive any pain medicine, patient states that also he cou ld not tolerate hydrocodone because of vomiting. Patient still currently suffering from severe left facial pain at 9-10/ in severity Patient says he was not able to eat and drink well over the last 6 months and he lost about 40 pounds. As per at bedside patient feels very weak and has done nothing over the last month because of his severe weakness. He denies smoking alcohol or illicit drugs. No postnasal hopelessness. Yesterday ER physician contacted [facility] however patient transfer was retracted and patient was admitted to our service. Patient is hemodynamically stable. He is afebrile. Labs showed WBC 5.7, hemoglobin 12.7. Sodium 132, potassium 5.5 but the sample hemolyzed No imaging done in the emergency room On reviewing the records patient had surgery on 12/26/[address] Moreau for left chronic sinusitis with left maxillary sinus mass and he underwent left sided endoscopic sinus surgery including (Left-sided endoscopic sinus surgery including left maxillary antrostomy with removal of tissue from the maxillary sinus/biopsy, left anterior and posterior ethmoidectomy, left frontal sinusotomy with removal of tissue from the left frontal sinus and exploration) Here he tried Reglan 5 mg and he did not help much and he agrees to increase the dose to 10 mg, risks and benefits are explained and patient and are agreeable 02-19-22 Patient pain is better controlled after seen by pain physician and he was started on Lyrica and Ultram Patient still have difficulty eating because he cannot open wound, oncology team recommended PEG tube placement, oncology team already consulted surgery for planned for EGD and PEG tube possibly tomorrow Oral surgeon also is going to see the patient Patient remains on D5 normal saline at 75 mL per hour Clindamycin We'll continue monitoring closely 02/20/2022 Patient is seen and evaluated in follow-up this morning continues to have nothing by mouth except for the Carafate and not eating. Patient is being followed by oncology along with general surgery and oral surgery. General surgery tentatively scheduled for possible PEG tube placement although unable to handle EGD PEG tube placement due to his inability to open the mouth and surgery is recommending tertiary treatment center transfer for CT-guided PEG tube placement. Family is agreeable and [facility] was contacted and Dr. Starks has accepted the patient although bed is pending at this time. Case management made aware that his oncological surgeon would rather him be transferred to [facility] or [facility] for this. This was made of note after [facility] had accepted the patient. Case management placing calls to [facility] and currently pending at this time. Patient is afebrile continues to have pain and somewhat controlled with IV pain medications. Patient denies chest pain or shortness of breath. Review of systems: Constitutional: No reports of fatigue, fever, or chills, reports mouth pain and facial pain Cardiovascular: No reports of chest pain or palpitations Respiratory: No reports of shortness of breath or cough GI: No reports of nausea, vomiting, or diarrhea : No reports of dysuria or retention Neurovascular: No reports of weakness or numbness All medications have been reviewed Physical exam: GENERAL: The patient is alert and oriented x3, patient continues to have pain, cachectic. Ill-appearing. HEENT: Pupils are round and equally reacting to light. EOMI. No scleral icterus. No conjunctival pallor. Normocephalic, atraumatic. No pharyngeal erythema. No thyromegaly. Patient has a scar at the left cheek, patient has limited ability to open the jaw, dry mucous membranes CARDIOVASCULAR: S1 and S2 present. No murmurs, rubs, or gallops. PULMONARY: Chest is clear to auscultation, no wheezing or crackles. ABDOMEN: Soft, nontender, nondistended, normoactive bowel sounds. No palpable organomegaly. MUSCULOSKELETAL: No joint swelling or deformity. EXTREMITIES: No cyanosis, clubbing, or pedal edema. NEUROLOGICAL: Gross neurological examination did not reveal any focal deficits. SKIN: No rashes. no petechiae. 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 History of sinus infection, he follows up with oncologist with plan for PET scan as an outpatient Depression, not an active issue Generalized weakness secondary to above GI prophylaxis DVT prophylaxis No code Plan: Continue with IV fluids and recommend to continue with D5 normal saline due to not eating Continue with Dilaudid, Start [place] when necessary as well as Tylenol when necessary. Continue with antiemetic oncology team on board and the recommended PEG tube, surgery evaluated the patient and unable to perform EGD sided PEG tube recommending transfer to tertiary [facility] for CT-guided PEG tube placement and family and along with patient are agreeable, [facility] was contacted and Dr. Starks has accepted the patient awaiting a bed assignment Oncology surgeon later called case management recommending transfer to [facility] or [facility] and case management calling other facilities to accommodate transfer Patient currently on clindamycin and will continue for now. Due to multiple complex medical issues, prognosis is guarded. The impression and plan of care has been dictated by Flores Muro, Nurse Practitioner as directed. Dr. Mark MD I have performed a history and examination and MDM of this patient, discussed the same with the dictator, and agree with the dictator's assessment and plan as written ,documented as a scribe. Based on total visit time, I have performed more than 50% of the visit. Objective - Vital Signs Vital signs: Vital Signs Temp 97.4 F L 02/20/22 08:00 Pulse 65 02/20/22 08:00 Resp 18 02/20/22 09:30 BP 128/80 02/20/22 08:00 Pulse Ox 94 L 02/20/22 08:00 FiO2 Intake & Output 02/19/22 02/20/22 02/20/22 18:59 06:59 18:59 Other: Voiding Method Toilet Toilet Toilet Urinal # Voids 2 2 - Labs CBC & Chem 7: 02/20/22 06:51 02/20/22 06:51 Labs: Abnormal Lab Results - Last 24 Hours (Table) 02/19/22 02/19/22 Range/Units 06:51 06:51 RBC 3.56 L (4.40-5.60) X 10*6/uL Hgb 11.2 L (13.0-17.0) g/dL Hct 32.8 L (39.6-50.0) % MPV 9.3 L (9.5-12.2) fL Lymphocytes # 0.59 L (0.90-5.00) X 10*3/uL Sodium 132 L (135-145) mmol/L Carbon Dioxide 28.0 H (20.0-27.5) mmol/L Anion Gap 7.00 L (10.00-18.00) mmol/L BUN/Creatinine Ratio 20.14 H (12.00-20.00) Ratio Glucose 112 H (70-110) mg/dL Conjugated Bilirubin <0.20 L (0.20-0.40) mg/dL AST 13 L (14-35) U/L Albumin 3.6 L (3.8-4.9) g/dL Albumin/Globulin Ratio 1.13 L (1.60-3.17) g/dL
--- NOTE | 2022-02-20 14:36 | P.PN ---
Progress Note - Text Progress Note Date: 02/20/22 Patient continued to have severe facial pain and headache, he had some improvement with the current medication he is currently on Lyrica 75 mg twice a day and Ultram 50 mg every 8 hours when necessary, he denies any side effects of the medicatio, patient was treated before with [place] 5/325 without any significant benefit and that he had side effects from it and also he was treated in the past with Percocet 5/325 and he had side effects from it, for this reason I will start patient on Duragesic patch 12 g every 72 hours and would continue Ultram 50 mg every 8 hours when necessary, and we will continue Lyrica 75 mg twice a day
[2022-02-20] MEDS: CITALOPRAM HYDROBROMIDE 20 MG TAB PO SCH (22:11)
[2022-02-20] MEDS: MELATONIN 5 MG TABLET PO SCH (22:11)
--- NOTE | 2022-02-21 10:00 | P.DS ---
Providers Date of admission: 02/17/22 20:21 Expected date of discharge: 02/20/22 Attending physician: hSaun Ruvalcaba MD Consults: 02/17/22 20:18 Consult Physician Routine Consulting Provider: Tello Mari Consult Reason/Comments: eval for oral/ent ca Do you want consulting provider notified?: Yes, Notify in am Consult Physician Routine Consulting Provider: Lam Duval Consult Reason/Comments: Oncological care Do you want consulting provider notified?: Yes, Notify in am 02/18/22 20:30 Consult Physician Routine Consulting Provider: Tj Quintero Consult Reason/Comments: PEG tube placement, inability to open mouth 2/2 Hx head/neck ca, surg, XRT Do you want consulting provider notified?: Yes, Notify in am Primary care physician: Renan Grewal [facility] Course: Final diagnosis Severe face pain mainly on the left side times one month, continuous , failed previous inpatient or outpatient treatment secondary to left maxillary cancer Nausea vomiting, 4 days prior to admission, mostly secondary to above Inability to eat, for the last 1 month Continued weight loss, patient lost 40 pounds, secondary to above Moderate protein calorie malnutrition with a BMI of 20.3 left Maxillary cancer, 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 History of sinus infection, he follows up with oncologist with plan for PET scan as an outpatient Depression, not an active issue Generalized weakness secondary to above GI prophylaxis DVT prophylaxis No code Discharge disposition Patient is being transferred in a stable condition with guarded prognosis to [facility] for further evaluation for CT-guided PEG tube placement . Patient will follow-up with Dr. Grewal his primary care provider in the outpatient setting upon discharge. Patient is also to follow-up with oncology and his oncological surgeon outpatient. Patient was accepted by [facility] by Dr. Trimble for CT-guided PEG tube placement. Total time taken is greater than 35 minutes. Hospital course This is a 67-year-old male who was recently admitted with decrease in appetite moderate protein calorie malnutrition with weight loss and history of maxilla cancer unable to tolerate oral intake. Patient was evaluated by oncology along with general surgery for PEG tube placement. General surgery recommending transfer to tertiary treatment center for CT-guided PEG tube placement as patient is unable to tolerate EGD guided due to the inability to open his jaw. Patient and family were agreeable to this transfer. Currently awaiting a bed and will call unit once a bed is available. Currently no reports of chest pain, shortness of breath, or palpitations. Patient is afebrile. No reports of nausea or vomiting and patient is not tolerating oral intake. Patient will be transferred to [facility] today. Physical exam: Gen: This is a 67-year-old male awake, alert and oriented 3, and built, ill- appearing male HEENT: Head is atraumatic, normocephalic. Pupils equal, round. Sclerae is anicteric. NECK: Supple. No JVD. No lymphadenopathy. No thyromegaly. LUNGS: Clear to auscultation. No wheezes or rhonchi. No intercostal retractions. HEART: Regular rate and rhythm. No murmur. ABDOMEN: Soft. Bowel sounds are present. No masses. No tenderness. EXTREMITIES: No pedal edema. No calf tenderness. NEUROLOGICAL: Patient is awake, alert and oriented x3. Cranial nerves 2 through 12 are grossly intact. Please refer to medication reconciliation sheet for a list of medications. The impression and plan of care has been dictated by Flores Muro, Nurse Practitioner as directed. Dr. Mark MD I have performed a history and examination and MDM of this patient, discussed the same with the dictator, and agree with the dictator's assessment and plan as written ,documented as a scribe. Based on total visit time, I have performed more than 50% of the visit. Patient Condition at Discharge: Stable Plan - Discharge Summary Discharge Rx Participant: No New Discharge Prescriptions: No Action clonazePAM [KlonoPIN] 1 mg PO HS Citalopram Hydrobromide [CeleXA] 40 mg PO HS Docusate Sodium [Dok] 100 mg PO BID PRN PRN Reason: Constipation Ketorolac [Toradol] 10 mg PO Q6HR PRN #15 tab PRN Reason: Pain Amoxic-Pot Clav 875-125Mg [Augmentin 875-125] 1 tab PO BID 14 Days #28 tab polyethylene glycoL 3350 [Miralax] 17 gm PO DAILY PRN PRN Reason: Constipation Discharge Medication List Citalopram Hydrobromide [CeleXA] 40 mg PO HS 11/30/20 [History] clonazePAM [KlonoPIN] 1 mg PO HS 11/30/20 [History] Docusate Sodium [Dok] 100 mg PO BID PRN 02/04/22 [History] polyethylene glycoL 3350 [Miralax] 17 gm PO DAILY PRN 02/04/22 [History] Amoxic-Pot Clav 875-125Mg [Augmentin 875-125] 1 tab PO BID 14 Days #28 tab 02/16/22 [Rx] Ketorolac [Toradol] 10 mg PO Q6HR PRN #15 tab 02/16/22 [Rx] Follow up Appointment(s)/Referral(s): Renan Grewal DO [Primary Care Provider] - 1-2 days Lam Duval MD [STAFF PHYSICIAN] - 02/28/22 1:00 pm Activity/Diet/Wound Care/Special Instructions: PET SCAN SCHED FOR 02/21/22 AT 8AM Discharge Disposition: OTHER INSTITUTION NOT DEFINED
== END 2022-02-20 22:20 | disposition short-term general hospital (02) | DRG 641 ==
LOC: EC 11:57 → 4SSUR 20:21
PROVIDERS: ADMIT Internal Medicine; ATTEND Internal Medicine
DX: E44.0 Moderate protein-calorie malnutrition (principal); B37.0 Candidal stomatitis; H70.92 Unspecified mastoiditis, left ear; E86.0 Dehydration; K11.7 Disturbances of salivary secretion; R68.84 Jaw pain; J32.0 Chronic maxillary sinusitis; H92.02 Otalgia, left ear; R63.30 Feeding difficulties, unspecified; Z28.310 Unvaccinated for COVID-19; Z92.3 Personal history of irradiation; Z92.21 Personal history of antineoplastic chemotherapy; Z87.891 Personal history of nicotine dependence; Z79.899 Other long term (current) drug therapy; Z68.20 Body mass index [BMI] 20.0-20.9, adult; Z79.2 Long term (current) use of antibiotics
CPT/HCPCS: 36415; 70470; 80048; 80053; 80076; 83735; 84145; 85025; 85610; 85730; 87635; 96361; 96365; 96375; 99285

== ENCOUNTER 2022-03-07 13:35 | Emergency (ER) | payer MEDICARE, BC, OTHER ==
[2022-03-07 14:06] VITALS: BP 98/71; PULSE 90; RESP 20; TEMP 97.9
--- NOTE | 2022-03-07 18:30 | ED ---
General Adult HPI - General Chief complaint: Altered Mental Status Stated complaint: hallucinations Time Seen by Provider: 03/07/22 17:55 Source: patient Mode of arrival: ambulatory Limitations: no limitations - History of Present Illness Initial comments: This is a 67-year-old male with a past medical history including previous maxillary sinus cancer status post resection presented to the emergency department via EMS after reported altered mental status and hallucinations over the last 1 day. The patient is being taken care of by home health and he was noted to have hallucinations yesterday. The patient was recently discharged from [facility] after PEG tube was placed and has been home for the last 1 week. The patient has significant scar tissue around his TMJ is unable to open his mouth fully for feeding. He had been doing well at home but did have reported fever at home 2 days ago with hallucinations reported yesterday. The patient himself was ANO x4 and was eventually answer all questions appropriate. The patient stated that he did not have any pain or distress at this time. The patient was resting in bed comfortably. - Related Data Home Medications Medication Instructions Recorded Confirmed Citalopram Hydrobromide [CeleXA] 40 mg PO HS 11/30/20 03/07/22 Docusate Sodium [Dok] 100 mg PO BID 02/04/22 03/07/22 polyethylene glycoL 3350 [Miralax] 17 gm PO DAILY PRN 02/04/22 03/07/22 Lactulose [Constulose] 30 gm PO DAILY 03/07/22 03/07/22 Ondansetron Odt [Zofran Odt] 4 mg PO Q8HR PRN 03/07/22 03/07/22 Pantoprazole Sodium [Protonix] 40 mg PO DAILY 03/07/22 03/07/22 Pregabalin [Lyrica] 150 mg PO BID 03/07/22 03/07/22 oxyCODONE HCL [Roxicodone] 15 mg PO Q6H PRN 03/07/22 03/07/22 Allergies Allergy/AdvReac Type Severity Reaction Status Date / Time No Known Allergies Allergy Verified 03/07/22 14:06 Review of Systems ROS Statement: Those systems with pertinent positive or pertinent negative responses have been documented in the HPI. ROS Other: All systems not noted in ROS Statement are negative. Past Medical History Past Medical History: Cancer Additional Past Medical History / Comment(s): sinus infection, maxilla CA History of Any Multi-Drug Resistant Organisms: None Reported Past Surgical History: No Surgical Hx Reported Additional Past Surgical History / Comment(s): 01/2021 cancer removal surgery left sinus cavity/maxilla Past Anesthesia/Blood Transfusion Reactions: No Reported Reaction Past Psychological History: No Psychological Hx Reported Smoking Status: Former smoker Past Alcohol Use History: Occasional Past Drug Use History: None Reported General Exam Limitations: no limitations General appearance: alert, in no apparent distress Head exam: Present: atraumatic, normocephalic Eye exam: Present: normal appearance, PERRL, EOMI Pupils: Present: normal accommodation ENT exam: Present: normal exam, normal oropharynx, mucous membranes moist Neck exam: Present: normal inspection, full ROM Respiratory exam: Present: normal lung sounds bilaterally Cardiovascular Exam: Present: regular rate, normal rhythm, normal heart sounds GI/Abdominal exam: Present: soft, normal bowel sounds Extremities exam: Present: normal inspection, full ROM Back exam: Present: normal inspection, full ROM Neurological exam: Present: alert, oriented X3, CN II-XII intact Psychiatric exam: Present: normal affect, normal mood Skin exam: Present: warm, dry Course Vital Signs 03/07/22 14:02 Temperature 97.9 F Pulse Rate 90 Respiratory 20 Rate Blood Pressure 98/71 O2 Sat by Pulse 98 Oximetry Medical Decision Making - Medical Decision Making The patient was seen and evaluated in the emergency department. On physical exam, the patient was resting in bed without any acute distress. Vital signs admission were stable and within normal limits. Due to the nature the patient's complaints, laboratory workup was obtained as was a CT head as well as a chest x-ray. Chest x-ray was negative for any acute intrathoracic process. There was soupy changes noted. CT head showed no acute intracranial process. There was a nonspecific left coronal radiata frontal lobe hypodensity that needs to be further evaluated with MRI to rule out underlying metastatic disease. There is extensive postsurgical changes of the face with portions of these skull missing likely secondary to his previous surgeries. Laboratory workup was largely within normal limits as well however urinalysis took several hours to obtain. The patient complained of thrush as he was diagnosed with this previously at an outside hospital. The patient was given nystatin swish and swallow solution. The patient was given multiple glasses of water and was unable to provide urine on his own. The patient was straight cathed for urine. Urinalysis showed no acute infection. The patient continued to remain stable. The patient had intermittent hallucinations likely secondary to his opiate withdrawal. The patient was on chronic narcotics and did run out the last 2 days according to the patient and his underwent to light with the patient once again. The patient did have a refill on his prescription was able to take this at home. The patient continued to remain stable without any recurrence of his symptoms and was stable for discharge. The patient and his were advised to follow- up with his primary care physician for further workup and evaluations report back to the emergency department if they became acutely worse. The patient is are agreeable to this and all depressions were answered. The patient was discharged home in stable condition. - Lab Data Result diagrams: 03/07/22 18:50 03/07/22 18:50 Lab Results 03/07/22 03/07/22 03/07/22 Range/Units 18:50 18:50 18:50 WBC 8.5 (3.8-10.6) k/uL RBC 4.24 L (4.30-5.90) m/uL Hgb 13.6 (13.0-17.5) gm/dL Hct 39.5 (39.0-53.0) % MCV 93.3 (80.0-100.0) fL MCH 32.1 (25.0-35.0) pg MCHC 34.4 (31.0-37.0) g/dL RDW 13.7 (11.5-15.5) % Plt Count 295 (150-450) k/uL MPV 7.3 Neutrophils % 82 % Lymphocytes % 8 % Monocytes % 5 % Eosinophils % 1 % Basophils % 0 % Neutrophils # 7.0 (1.3-7.7) k/uL Lymphocytes # 0.7 L (1.0-4.8) k/uL Monocytes # 0.5 (0-1.0) k/uL Eosinophils # 0.1 (0-0.7) k/uL Basophils # 0.0 (0-0.2) k/uL Sodium 134 L (137-145) mmol/L Potassium 4.7 (3.5-5.1) mmol/L Chloride 94 L (98-107) mmol/L Carbon Dioxide 32 H (22-30) mmol/L Anion Gap 8 mmol/L BUN 26 H (9-20) mg/dL Creatinine 0.68 (0.66-1.25) mg/dL Est GFR (CKD-EPI)AfAm >90 (>60 ml/min/1.73 sqM) Est GFR (CKD-EPI)NonAf >90 (>60 ml/min/1.73 sqM) Glucose 100 H (74-99) mg/dL Calcium 9.8 (8.4-10.2) mg/dL Magnesium 2.2 (1.6-2.3) mg/dL Total Bilirubin 0.6 (0.2-1.3) mg/dL AST 43 (17-59) U/L ALT 89 H (4-49) U/L Alkaline Phosphatase 137 H (38-126) U/L Total Protein 8.0 (6.3-8.2) g/dL Albumin 4.0 (3.5-5.0) g/dL Urine Color Urine Appearance (Clear) Urine pH (5.0-8.0) Ur Specific Eden (1.001-1.035) Urine Protein (Negative) Urine Glucose (UA) (Negative) Urine Ketones (Negative) Urine Blood (Negative) Urine Nitrite (Negative) Urine Bilirubin (Negative) Urine Urobilinogen (<2.0) mg/dL Ur Leukocyte Esterase (Negative) Urine WBC (0-5) /hpf Amorphous Sediment (None) /hpf Urine Bacteria (None) /hpf Urine Mucus (None) /hpf Coronavirus (PCR) Not Detected (Not Detectd) 03/07/22 Range/Units 22:30 WBC (3.8-10.6) k/uL RBC (4.30-5.90) m/uL Hgb (13.0-17.5) gm/dL Hct (39.0-53.0) % MCV (80.0-100.0) fL MCH (25.0-35.0) pg MCHC (31.0-37.0) g/dL RDW (11.5-15.5) % Plt Count (150-450) k/uL MPV Neutrophils % % Lymphocytes % % Monocytes % % Eosinophils % % Basophils % % Neutrophils # (1.3-7.7) k/uL Lymphocytes # (1.0-4.8) k/uL Monocytes # (0-1.0) k/uL Eosinophils # (0-0.7) k/uL Basophils # (0-0.2) k/uL Sodium (137-145) mmol/L Potassium (3.5-5.1) mmol/L Chloride (98-107) mmol/L Carbon Dioxide (22-30) mmol/L Anion Gap mmol/L BUN (9-20) mg/dL Creatinine (0.66-1.25) mg/dL Est GFR (CKD-EPI)AfAm (>60 ml/min/1.73 sqM) Est GFR (CKD-EPI)NonAf (>60 ml/min/1.73 sqM) Glucose (74-99) mg/dL Calcium (8.4-10.2) mg/dL Magnesium (1.6-2.3) mg/dL Total Bilirubin (0.2-1.3) mg/dL AST (17-59) U/L ALT (4-49) U/L Alkaline Phosphatase (38-126) U/L Total Protein (6.3-8.2) g/dL Albumin (3.5-5.0) g/dL Urine Color Yellow Urine Appearance Cloudy (Clear) Urine pH 7.0 (5.0-8.0) Ur Specific Eden 1.016 (1.001-1.035) Urine Protein Negative (Negative) Urine Glucose (UA) Negative (Negative) Urine Ketones Negative (Negative) Urine Blood Negative (Negative) Urine Nitrite Negative (Negative) Urine Bilirubin Negative (Negative) Urine Urobilinogen <2.0 (<2.0) mg/dL Ur Leukocyte Esterase Negative (Negative) Urine WBC 3 (0-5) /hpf Amorphous Sediment Rare H (None) /hpf Urine Bacteria Rare H (None) /hpf Urine Mucus Rare H (None) /hpf Coronavirus (PCR) (Not Detectd) Disposition Clinical Impression: Hallucinations, Opiate withdrawal Disposition: HOME SELF-CARE Condition: Stable Instructions (If sedation given, give patient instructions): Narcotic Withdrawal (ED) Is patient prescribed a controlled substance at d/c from ED?: No Referrals: Renan Grewal DO [Primary Care Provider] - 1-2 days Time of Disposition: 23:05
[2022-03-07 19:11] LABS: Basophils % (A) 0 %; Eosinophils # (A) 0.1 k/uL (0-0.7); Eosinophils % (A) 1 %; HCT 39.5 % (39.0-53.0); HGB 13.6 gm/dL (13.0-17.5); Lymphocytes # (A) 0.7 k/uL (1.0-4.8); Lymphocytes % (A) 8 %; MCH 32.1 pg (25.0-35.0); MCHC 34.4 g/dL (31.0-37.0); MCV 93.3 fL (80.0-100.0); Mean Platelet Volume 7.3; Monocytes # (A) 0.5 k/uL (0-1.0); Monocytes % (A) 5 %; Neutrophils % (A) 82 %; Platelet Count 295 k/uL (150-450); RBC 4.24 m/uL (4.30-5.90); RDW 13.7 % (11.5-15.5); WBC 8.5 k/uL (3.8-10.6)
--- NOTE | 2022-03-07 19:18 | CT ---
EXAMINATION TYPE: CT brain wo con CT DLP: 1260.4 mGycm, Automated exposure control for dose reduction was used. DATE OF EXAM: 03/07/2022 6:30 PM COMPARISON: PET/CT same day. CLINICAL INDICATION:Male, 67 years old with history of AMS, h/o maxillary ca, hallucinations, AMS. hx of maxillary cancer TECHNIQUE: Brain: Axial CT images of the brain were obtained with coronal and sagittal reformats created and rev iewed. Contrast used: None. Oral contrast used: None. FINDINGS: Brain: Extra-axial spaces: No abnormal extra-axial fluid collections. Ventricular system: Within normal limits Cerebral parenchyma: Left gutierres radiata frontal lobe white matter changes. No acute intraparenchymal hemorrhage or mass effect. The thorpe-white junction is well differentiated. Cerebellum: Unremarkable. Mass effect: No evidence of midline shift. Intracranial vasculature: unremarkable Soft tissues: Postsurgical changes to the face and skull with portions of the anatomic structures rhonda gically absent. Calvarium/osseous structures: No depressed skull fracture. Postsurgical changes of the skull there is left middle cranial fossa permeative erosive changes likely secondary to known cancer. Paranasal sinuses and mastoid air cells: Mild scattered paranasal sinus disease. Visualized orbits: Orbital contents are intact. IMPRESSION: 1. No acute intracranial process. 2. Nonspecific left gutierres radiata frontal lobe hypodensity this can be further evaluated with MRI t o rule out underlying metastatic disease. 3. Extensive post surgical changes of face with portions of these skull missing.
--- NOTE | 2022-03-07 19:20 | XR ---
EXAMINATION TYPE: XR chest 2V DATE OF EXAM: 03/07/2022 6:31 PM COMPARISON: PET/CT same day. PET/CT 07/26/2021. TECHNIQUE: XR chest 2V Frontal and lateral views of the chest. CLINICAL INDICATION:Male, 67 years old with history of AMS; FINDINGS: Lungs/Pleura: There is flattening of the diaphragm with increased lucency of the lungs. No evidence o f pneumothorax, pleural effusion or focal consolidation. Pulmonary vascularity: Unremarkable. Heart/mediastinum: Cardiomediastinal silhouette is unremarkable. Musculoskeletal: No acute osseous pathology. IMPRESSION: 1. No acute cardiopulmonary disease process. 2. COPD changes.
[2022-03-07 19:21] LABS: ALT 89 U/L (4-49); AST 43 U/L (17-59); African American GFR (CKD) >90 (>60 ml/min/1.73 sqM); Alkaline Phosphatase 137 U/L (38-126); Anion Gap 8 mmol/L; Blood Urea Nitrogen 26 mg/dL (9-20); Calcium 9.8 mg/dL (8.4-10.2); Carbon Dioxide 32 mmol/L (22-30); Chloride 94 mmol/L (98-107); Glucose 100 mg/dL (74-99); Magnesium 2.2 mg/dL (1.6-2.3); Non-African American GFR(CKD) >90 (>60 ml/min/1.73 sqM); Potassium 4.7 mmol/L (3.5-5.1); Sodium 134 mmol/L (137-145); Total Bilirubin 0.6 mg/dL (0.2-1.3)
[2022-03-07] MEDS ORDERED: NYSTATIN 100,000 UNIT/ML SUSP 500,000 UNIT/5 ML CUP PO SCH (22:00)
[2022-03-07 22:55] LABS: Amorphous Sediment,Urine Rare /hpf; Appearance,Urine Cloudy (Clear); Bacteria,Urine Rare /hpf; Bilirubin,Urine Negative (Negative); Blood,Urine Negative (Negative); Color,Urine Yellow; Glucose,Urine (UA) Negative (Negative); Ketones,Urine Negative (Negative); Leukocyte Esterase,Urine Negative (Negative); Mucus,Urine Rare /hpf; Nitrite,Urine Negative (Negative); Protein,Urine Negative (Negative); Specific Gravity,Urine 1.016 (1.001-1.035); Urobilinogen,Urine <2.0 mg/dL (<2.0); WBC,Urine 3 /hpf (0-5)
== END 2022-03-07 23:14 | disposition home or self-care (01) ==
LOC: EC 13:35
DX: R44.3 Hallucinations, unspecified (principal); F11.23 Opioid dependence with withdrawal; Z87.891 Personal history of nicotine dependence
CPT/HCPCS: 36415; 70450; 71046; 80053; 81001; 83735; 85025; 87635; 99285

== ENCOUNTER → 2022-03-07 | Outpatient (CLI) | payer MEDICARE, BC, OTHER ==
--- NOTE | 2022-03-07 19:18 | PE ---
EXAMINATION TYPE: PET CT fusion skull to thigh DATE OF EXAM: 03/07/2022 CLINICAL INDICATION:Male, 67 years old with history of C76.0 MALIGNANT NEOPLASM OF HEAD, FACE AND NEC K; TECHNIQUE: Following the intravenous administration of 12.12 mCi of F-18 FDG, whole body images are performed from the skull base to the midthigh. Images are reviewed on the computer in the coronal, axial, and sagittal planes. Reconstructed rotating images are created on independent workstation and reviewed on the computer. A non-contrast CT is performed in conjunction with the PET scan. Glucose level 116 mg/dL COMPARISON: CT 02/16/2022 03/07/2022 CT brain's, PET/CT 07/26/2021, FINDINGS: Mediastinal SUV mean is 1.1. Hepatic parenchyma SUV mean is 1.6. SKULL BASE AND NECK: Extensive post surgical changes to the left skull and face with peripherally me tabolically active cavitating surgical bed with max SUV 9.9 MC without surgery max SUV 4.6. Lymph nod e official the sternocleidomastoid mastoid muscle with max SUV 3.3 and measuring 6 mm previously 4 mm and max SUV 2.1. CHEST, MEDIASTINUM, AND HILAR REGION: No suspicious FDG activity. ABDOMEN AND PELVIS: No suspicious FDG activity. OSSEOUS STRUCTURES: No suspicious FDG activity. Medially OTHER CT: Paraseptal and centrilobular emphy sema changes with some scarring in the lung apices. Ascending thoracic aorta dilation up to 43 mm. Co ronary artery atherosclerosis and aortic valve leaflet calcifications. PEG tube in place. Hepatic cys t. Atherosclerosis of the arterial vasculature. Large stool burden throughout the colon. Circumferent ial bladder wall thickening up to 9 mm. IMPRESSION: 1. Findings suggesting progressive disease with now cavitating mass centered around the left face wi th peripheral metabolic activity. New left anterior neck chain lymph node with metabolic activity con cerning for metastatic disease. 2. Urinary bladder wall thickening up to 9 mm correlate for cystitis with urinalysis. 3. Large stool burden throughout the colon. 4. Ascending thoracic aorta ectasia up to 42 mm.
== END | disposition home or self-care (01) ==
LOC: RADPETMAIN 15:24
PROVIDERS: ATTEND Internal Medicine Hematology & Oncology
DX: C76.0 Malignant neoplasm of head, face and neck (principal); N32.89 Other specified disorders of bladder; I77.810 Thoracic aortic ectasia
CPT/HCPCS: 78815; A9552

== ENCOUNTER 2022-03-20 07:54 | Inpatient (IN) | payer MEDICARE, BC, OTHER ==
--- NOTE | 2022-03-20 08:08 | ED ---
Altered Mental Status HPI - General Chief Complaint: Altered Mental Status Stated Complaint: altered Time Seen by Provider: 03/20/22 07:55 Source: patient, family, RN notes reviewed Mode of arrival: EMS Limitations: altered mental status - History of Present Illness Initial Comments: This is a 67-year-old male who presents to the emergency department for altered mental status. He is a patient of Dr. Duval, hematology/oncology, and had been previously diagnosed with a sinus/maxillary cancer. He had a PET scan on 03/07, which identified progressive disease with a new cavitating mass around the left face and new lymphadenopathy to the left anterior neck. He had an MRI yesterday at [facility], and was told that the cancer had spread into his brain, however those results are not currently available in our system. His states that since the MRI yesterday, he has not been acting like himself. He is saying things that do not make sense and keeps grabbing at his face. He is picking at his skin to the point of causing blood. He is also ripping apart blankets, taking off his clothes, and his is concerned that he is a harm to himself. She also states that he seems very confused and is unaware of his surroundings. Additionally, he has not been sleeping well for at least 2 weeks. Upon my discussion with the patient, he is alert and oriented to person, place, and time. He continues to put his arms in the air, and when asked why, he states that his hands are not in the air. MD Complaint: altered mental status Onset/Timin -: days(s) - Related Data Home Medications Medication Instructions Recorded Confirmed Citalopram Hydrobromide [CeleXA] 40 mg PO HS 11/30/20 03/20/22 Docusate Sodium [Dok] 100 mg PO BID 02/04/22 03/20/22 Lactulose [Constulose] 30 gm PO DAILY 03/07/22 03/20/22 Pantoprazole Sodium [Protonix] 40 mg PO DAILY 03/07/22 03/20/22 Pregabalin [Lyrica] 150 mg PO BID 03/07/22 03/20/22 oxyCODONE HCL [Roxicodone] 15 mg PO Q6H PRN 03/07/22 03/20/22 Nystatin [Nystatin Oral Susp] 400,000 unit PO QID 03/20/22 03/20/22 Allergies Allergy/AdvReac Type Severity Reaction Status Date / Time No Known Allergies Allergy Verified 03/20/22 11:45 Review of Systems ROS Statement: Those systems with pertinent positive or pertinent negative responses have been documented in the HPI. ROS Other: All systems not noted in ROS Statement are negative. Limitations: ROS unobtainable due to patients medical condition Past Medical History Past Medical History: Cancer Additional Past Medical History / Comment(s): sinus infection, maxilla CA History of Any Multi-Drug Resistant Organisms: None Reported Past Surgical History: No Surgical Hx Reported Additional Past Surgical History / Comment(s): 01/2021 cancer removal surgery left sinus cavity/maxilla Past Anesthesia/Blood Transfusion Reactions: No Reported Reaction Past Psychological History: No Psychological Hx Reported Smoking Status: Former smoker Past Alcohol Use History: Occasional Past Drug Use History: None Reported General Exam Limitations: altered mental status General appearance: alert, in no apparent distress Respiratory exam: Present: normal lung sounds bilaterally. Absent: respiratory distress, wheezes, rales, rhonchi, stridor Cardiovascular Exam: Present: regular rate, normal rhythm, normal heart sounds. Absent: systolic murmur, diastolic murmur, rubs, gallop, clicks Neurological exam: Present: alert, oriented X3 Skin exam: Present: warm, dry, intact, normal color. Absent: rash Course Vital Signs 03/20/22 07:57 Temperature 98.1 F Pulse Rate 63 Respiratory 18 Rate Blood Pressure 116/73 O2 Sat by Pulse 95 Oximetry Medical Decision Making - Medical Decision Making This is a 67-year-old male who presents to the emergency department for altered mental status. Lab work and urinalysis were nonactionable. My interpretation of the chest x-ray reveals no acute localized consolidations or infiltrates. The patient was noted to be picking at his skin in the examination room and proceeded to take off all of his clothing. His GCS is 12, with a 4 in eye opening response, 3 in verbal response, and and 5 in motor response. This was discussed with his , and while his workup in terms of laboratory studies and urinalysis are negative, he likely has an aspect of encephalopathy going on and because of the acute change in mentation with potentially harmful behavior to himself, will admit patient to medicine with heme/onc and neurology evaluation. Case management was able to acquire the results of the patient's MRI from yesterday at [facility]. A summary these findings were dictated in his chart and the official copy was scanned in. This case was discussed in detail with the attending ED physician. Presentation, findings, and treatment plan discussed in detail as well. - Lab Data Result diagrams: 03/20/22 08:06 03/20/22 08:06 Lab Results 03/20/22 03/20/22 03/20/22 Range/Units 08:06 08:06 08:06 WBC 7.7 (3.8-10.6) k/uL RBC 3.56 L (4.30-5.90) m/uL Hgb 11.7 L (13.0-17.5) gm/dL Hct 32.3 L (39.0-53.0) % MCV 90.8 (80.0-100.0) fL MCH 32.7 (25.0-35.0) pg MCHC 36.0 (31.0-37.0) g/dL RDW 13.6 (11.5-15.5) % Plt Count 314 (150-450) k/uL MPV 7.1 Neutrophils % 81 % Lymphocytes % 7 % Monocytes % 8 % Eosinophils % 1 % Basophils % 1 % Neutrophils # 6.2 (1.3-7.7) k/uL Lymphocytes # 0.6 L (1.0-4.8) k/uL Monocytes # 0.6 (0-1.0) k/uL Eosinophils # 0.1 (0-0.7) k/uL Basophils # 0.0 (0-0.2) k/uL PT 11.3 (9.0-12.0) sec INR 1.1 (<1.2) APTT 25.2 (22.0-30.0) sec Sodium (137-145) mmol/L Potassium (3.5-5.1) mmol/L Chloride (98-107) mmol/L Carbon Dioxide (22-30) mmol/L Anion Gap mmol/L BUN (9-20) mg/dL Creatinine (0.66-1.25) mg/dL Est GFR (CKD-EPI)AfAm (>60 ml/min/1.73 sqM) Est GFR (CKD-EPI)NonAf (>60 ml/min/1.73 sqM) Glucose (74-99) mg/dL Calcium (8.4-10.2) mg/dL Total Bilirubin (0.2-1.3) mg/dL AST (17-59) U/L ALT (4-49) U/L Alkaline Phosphatase (38-126) U/L Ammonia (<30) umol/L Creatine Kinase (55-170) U/L Troponin I (0.000-0.034) ng/mL Total Protein (6.3-8.2) g/dL Albumin (3.5-5.0) g/dL Urine Color Yellow Urine Appearance Cloudy (Clear) Urine pH 6.5 (5.0-8.0) Ur Specific [place] 1.016 (1.001-1.035) Urine Protein Negative (Negative) Urine Glucose (UA) Negative (Negative) Urine Ketones Negative (Negative) Urine Blood Negative (Negative) Urine Nitrite Negative (Negative) Urine Bilirubin Negative (Negative) Urine Urobilinogen <2.0 (<2.0) mg/dL Ur Leukocyte Esterase Negative (Negative) Urine RBC 1 (0-5) /hpf Urine WBC 2 (0-5) /hpf Ur Squamous Epith Cells <1 (0-4) /hpf Amorphous Sediment Occasional H (None) /hpf Urine Bacteria Rare H (None) /hpf Urine Mucus Rare H (None) /hpf 03/20/22 03/20/22 03/20/22 Range/Units 08:06 08:06 08:06 WBC (3.8-10.6) k/uL RBC (4.30-5.90) m/uL Hgb (13.0-17.5) gm/dL Hct (39.0-53.0) % MCV (80.0-100.0) fL MCH (25.0-35.0) pg MCHC (31.0-37.0) g/dL RDW (11.5-15.5) % Plt Count (150-450) k/uL MPV Neutrophils % % Lymphocytes % % Monocytes % % Eosinophils % % Basophils % % Neutrophils # (1.3-7.7) k/uL Lymphocytes # (1.0-4.8) k/uL Monocytes # (0-1.0) k/uL Eosinophils # (0-0.7) k/uL Basophils # (0-0.2) k/uL PT (9.0-12.0) sec INR (<1.2) APTT (22.0-30.0) sec Sodium 132 L (137-145) mmol/L Potassium 4.5 (3.5-5.1) mmol/L Chloride 95 L (98-107) mmol/L Carbon Dioxide 30 (22-30) mmol/L Anion Gap 7 mmol/L BUN 19 (9-20) mg/dL Creatinine 0.64 L (0.66-1.25) mg/dL Est GFR (CKD-EPI)AfAm >90 (>60 ml/min/1.73 sqM) Est GFR (CKD-EPI)NonAf >90 (>60 ml/min/1.73 sqM) Glucose 108 H (74-99) mg/dL Calcium 9.2 (8.4-10.2) mg/dL Total Bilirubin 0.9 (0.2-1.3) mg/dL AST 25 (17-59) U/L ALT 27 (4-49) U/L Alkaline Phosphatase 119 (38-126) U/L Ammonia <9 (<30) umol/L Creatine Kinase 61 (55-170) U/L Troponin I <0.012 (0.000-0.034) ng/mL Total Protein 7.2 (6.3-8.2) g/dL Albumin 3.6 (3.5-5.0) g/dL Urine Color Urine Appearance (Clear) Urine pH (5.0-8.0) Ur Specific [place] (1.001-1.035) Urine Protein (Negative) Urine Glucose (UA) (Negative) Urine Ketones (Negative) Urine Blood (Negative) Urine Nitrite (Negative) Urine Bilirubin (Negative) Urine Urobilinogen (<2.0) mg/dL Ur Leukocyte Esterase (Negative) Urine RBC (0-5) /hpf Urine WBC (0-5) /hpf Ur Squamous Epith Cells (0-4) /hpf Amorphous Sediment (None) /hpf Urine Bacteria (None) /hpf Urine Mucus (None) /hpf - Radiology Data Radiology results: report reviewed, image reviewed MRI from 03/19 that was obtained from [facility] Neurology: Radiology interpretation reveals a large skull base mass extending to the right middle cranial fossa with associated dural involvement. It is recommended that he receive further evaluation with a dedicated MRI of the orbits with and without contrast, including axial, sagittal, and coronal fat-saturated postcontrast and T2-weighted sequences. There is also questionable involvement of the left cavernous sinus and the cavernous left internal carotid artery leading to possible narrowing of the left cardiology. An MRI of the head was recommended for this finding. Disposition Clinical Impression: Encephalopathy, Altered mental status, Maxillary sinus cancer Disposition: ADMITTED IP TO THIS HOSP
[2022-03-20 08:22] LABS: Basophils % (A) 1 %; Eosinophils # (A) 0.1 k/uL (0-0.7); Eosinophils % (A) 1 %; HCT 32.3 % (39.0-53.0); HGB 11.7 gm/dL (13.0-17.5); Lymphocytes # (A) 0.6 k/uL (1.0-4.8); Lymphocytes % (A) 7 %; MCH 32.7 pg (25.0-35.0); MCV 90.8 fL (80.0-100.0); Mean Platelet Volume 7.1; Monocytes # (A) 0.6 k/uL (0-1.0); Monocytes % (A) 8 %; Neutrophils # (A) 6.2 k/uL (1.3-7.7); Neutrophils % (A) 81 %; Platelet Count 314 k/uL (150-450); RBC 3.56 m/uL (4.30-5.90); RDW 13.6 % (11.5-15.5); WBC 7.7 k/uL (3.8-10.6)
[2022-03-20 08:37] LABS: ALT 27 U/L (4-49); AST 25 U/L (17-59); African American GFR (CKD) >90 (>60 ml/min/1.73 sqM); Albumin 3.6 g/dL (3.5-5.0); Alkaline Phosphatase 119 U/L (38-126); Anion Gap 7 mmol/L; Blood Urea Nitrogen 19 mg/dL (9-20); Calcium 9.2 mg/dL (8.4-10.2); Carbon Dioxide 30 mmol/L (22-30); Chloride 95 mmol/L (98-107); Creatine Kinase 61 U/L (55-170); Glucose 108 mg/dL (74-99); Non-African American GFR(CKD) >90 (>60 ml/min/1.73 sqM); Potassium 4.5 mmol/L (3.5-5.1); Sodium 132 mmol/L (137-145); Total Bilirubin 0.9 mg/dL (0.2-1.3); Total Protein 7.2 g/dL (6.3-8.2)
[2022-03-20 08:38] LABS: INR 1.1 (<1.2); Partial Thromboplastin Time 25.2 sec (22.0-30.0); Prothrombin Time 11.3 sec (9.0-12.0)
--- NOTE | 2022-03-20 08:58 | XR ---
EXAMINATION TYPE: XR chest 2V DATE OF EXAM: 03/20/2022 COMPARISON: 03/07/2022 HISTORY: 67-year-old male confusion, altered mental status TECHNIQUE: AP and lateral views FINDINGS: Heart normal size. Aorta and pulmonary vasculature within normal limits. Mild hyperinflation. Right g reater than left apical pleural parenchymal scarring is similar. Surgical clips left axilla. Surgical clips left base of the neck. This is to be some surgical shortening of the inferior blade of the lef t scapula. No consolidation or pleural effusion. IMPRESSION: COPD with right greater than left apical pleural parenchymal scarring. Some surgical shortening to th e inferior left scapula. Surgical clips left axilla and left base of the neck. No acute process seen.
[2022-03-20 10:26] LABS: Amorphous Sediment,Urine Occasional /hpf; Appearance,Urine Cloudy (Clear); Bacteria,Urine Rare /hpf; Bilirubin,Urine Negative (Negative); Blood,Urine Negative (Negative); Color,Urine Yellow; Glucose,Urine (UA) Negative (Negative); Ketones,Urine Negative (Negative); Leukocyte Esterase,Urine Negative (Negative); Mucus,Urine Rare /hpf; Nitrite,Urine Negative (Negative); PH, Urine 6.5 (5.0-8.0); Protein,Urine Negative (Negative); RBC,Urine 1 /hpf (0-5); Specific Gravity,Urine 1.016 (1.001-1.035); Squamous Epithelial Cell,Urine <1 /hpf (0-4); Urobilinogen,Urine <2.0 mg/dL (<2.0); WBC,Urine 2 /hpf (0-5)
[2022-03-20] MEDS ORDERED: NALOXONE 0.4 MG/ML 1 ML VIAL IV PRN (12:08)
[2022-03-20] MEDS ORDERED: ONDANSETRON 4 MG/2 ML VIAL IVP PRN (12:08)
[2022-03-20] MEDS: HEPARIN SODIUM,PORCINE/PF 5,000 UNIT/0.5 ML SYRINGE SQ SCH ×2 (14:45→20:08)
[2022-03-20] MEDS: NYSTATIN 100,000 UNIT/ML SUSP 500,000 UNIT/5 ML CUP PO SCH ×2 (18:00→21:05)
[2022-03-20] MEDS: PREGABALIN 75 MG CAP PO SCH (20:08)
[2022-03-20] MEDS: CITALOPRAM HYDROBROMIDE 20 MG TAB PO SCH ×2 (20:08→20:27)
[2022-03-20] MEDS: DOCUSATE 100 MG CAP PO SCH ×2 (20:09→20:17)
--- NOTE | 2022-03-20 22:26 | P.CONS ---
History of Present Illness - Reason for Consult Consult date: 03/20/22 AMS, Recurrent maxillary sinus cancer - History of Present Illness This is a 67-year-old white male patient, well known to our service. He follows with Dr. Duval in the outpatient setting for maxillary sinus cancer. His oncology history is as follows: pt of Dr. Duval with a mostly unremarkable PMH other then his malignancy Hx. He initially presented 12/08 with c/o left facial numbness. CT scan of brain on 11/30/2020 which revealed opacification of left maxillary sinus, 12/19/20 CT sinus revealed posterilateral septal wall destruction. Dr. Isaac saw pt and on 12/26/20 he underwent endoscopic evaluation, biopsy of left maxillary mass was positive for invasive squamous cell carcinoma. 01/15/21 MRI of neck revealed enhancing soft tissue mass centered in and destroying the posterior wall of left maxillary sinus, invading the retromaxillary fat and possibly into anterior aspect of upper masseter muscle, measured 4.5 x 3.8 x 2.3cm. 01/18/21 PET scan revealed suspicious uptake in the known left maxilla mass, otherwise negative. 02/12/21 Dr. 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 04/01/2021 pt was started on adjuvant cisplatin with XRT, completed on 05/13/2021. Spine MRI 07/28/21 revealed osteoporotic fracture, no evidence of metastatic disease. 07/26/21 repeat PET scan revealed a new soft tissue lesion at left frontal calvarium, was aspirated by Dr. Howard, no evidence of malignancy, however, he ended up having sinus surgery for fungal infection. He was seen several times in the office for pain control. ON 01/22/22 he was seen by Dr. Duval, pt on lyrica, pred and NSAIDS. He has cont to lose wt as he cannot open his mouth to eat, PEG tube was discussed. He had f/u with Dr. Howard, additional surgery has been discussed to try and improve his ability to open his mouth. Patient was a dmitted on 02/20/22 c/o intractable pain in the face, persistent, now progressive despite mult analgesics tried including NSAIDs, neuropathic meds and antidepressants. As above. During his recent admission his pain remained very difficult to control despite various measures. He was transferred to tertiary care institution for CT-guided pelvic placement. Additional surgery had been discussed by Dr Howard try to improve his symptoms. he did have PEG placement. surgical intervention was however not recommended, as it was felt that the patient. His nutritional status improved, as well as additional staging done prior to the same. The patient's PET scan on 03/07/22 confirmed progression with a recurrent mass at the base of the brain, left neck adenopathy. He had an MRI of the sinuses on 03/19/22, which showed a large mass at the base of the brain extending into the middle cranial fossa. According to the patient's , the patient developed significant changes in behavior, with confusion, agitation, and in appropriate responses. He was therefore brought into the emergency room. He is somewhat improved, but continues to have similar behavior. For example, he pulled out hi s IV. While discussing his PEG tube, he stated that he did not have any tube. His stated that he continues to have issues with pain. In addition he has developed loss of vision in, and inability to open, his left eye over the past 5-6 days. he has been also scratching himself at multiple sites to the extent of drawing blood. Review of Systems Constitutional: Reports chronic pain, Reports fatigue, Reports weakness, Reports weight loss Eyes: left as per HPI (cannot open left eye), left loss of vision Ears: deny: decreased hearing, ear discharge, earache, tinnitus Ears, nose, mouth and throat: Reports as per HPI (left facial pain. Inability to open mouth), Reports headache, Reports voice changes Cardiovascular: Reports decreased exercise tolerance Respiratory: Denies cough Gastrointestinal: Reports as per HPI Genitourinary: Reports as per HPI Musculoskeletal: Reports muscle weakness Integumentary: Reports as per HPI, Reports pruritus Neurological: Reports as per HPI, Reports change in mentation, Reports confusion, Reports loss of vision, Reports paralysis (7 cranial nerve), Reports weakness Psychiatric: Reports confusion, Reports disorientation, Reports irritability, Reports memory loss Endocrine: Reports fatigue, Reports weight change Hematologic/Lymphatic: Reports as per HPI Past Medical History Past Medical History: Cancer Additional Past Medical History / Comment(s): sinus infection, maxilla CA History of Any Multi-Drug Resistant Organisms: None Reported Past Surgical History: No Surgical Hx Reported Additional Past Surgical History / Comment(s): 01/2021 cancer removal surgery left sinus cavity/maxilla Past Anesthesia/Blood Transfusion Reactions: No Reported Reaction Past Psychological History: No Psychological Hx Reported Smoking Status: Former smoker Past Alcohol Use History: Occasional Past Drug Use History: None Reported Medications and Allergies Home Medications Medication Instructions Recorded Confirmed Type Citalopram Hydrobromide [CeleXA] 40 mg PO HS 11/30/20 03/20/22 History Docusate Sodium [Dok] 100 mg PO BID 02/04/22 03/20/22 History Lactulose [Constulose] 30 gm PO DAILY 03/07/22 03/20/22 History Pantoprazole Sodium [Protonix] 40 mg PO DAILY 03/07/22 03/20/22 History Pregabalin [Lyrica] 150 mg PO BID 03/07/22 03/20/22 History oxyCODONE HCL [Roxicodone] 15 mg PO Q6H PRN 03/07/22 03/20/22 History Nystatin [Nystatin Oral Susp] 400,000 unit PO QID 03/20/22 03/20/22 History Allergies Allergy/AdvReac Type Severity Reaction Status Date / Time No Known Allergies Allergy Verified 03/20/22 11:45 Physical Exam Vitals: Vital Signs Temp Pulse Resp BP Pulse Ox 03/20/22 16:00 80 18 128/80 96 03/20/22 07:57 98.1 F 63 18 116/73 95 Intake and Output 03/20/22 03/20/22 03/20/22 06:59 14:59 22:59 Other: Voiding Method Diaper Weight 61.371 kg 61.371 kg - Constitutional General appearance: no acute distress - EENT unable to retract eyelids on the left side. On passive retraction denies being able to see anything on the left, including light perception significant trismus Eyes: EOMI (rt ) ENT: hearing grossly normal - Neck Neck: no lymphadenopathy Thyroid: bilateral: normal size - Respiratory Respiratory: bilateral: CTA - Cardiovascular Rhythm: regular Heart sounds: normal: S1, S2 - Gastrointestinal PEG site in epigastrium clean General gastrointestinal: normal bowel sounds, soft - Integumentary changes due to itching at baseline including couple of sites of skin breakdown. - Neurologic Neurologic: focal deficits (optic nerve and facial nerve on the left) - Musculoskeletal Musculoskeletal: generalized weakness, strength equal bilaterally - Psychiatric confused, poor recall. Results CBC & Chem 7: 03/20/22 08:06 03/20/22 08:06 Labs: Abnormal Lab Results - Last 24 Hours (Table) 03/20/22 03/20/22 03/20/22 Range/Units 08:06 08:06 08:06 RBC 3.56 L (4.30-5.90) m/uL Hgb 11.7 L (13.0-17.5) gm/dL Hct 32.3 L (39.0-53.0) % Lymphocytes # 0.6 L (1.0-4.8) k/uL Sodium 132 L (137-145) mmol/L Chloride 95 L (98-107) mmol/L Creatinine 0.64 L (0.66-1.25) mg/dL Glucose 108 H (74-99) mg/dL Amorphous Sediment Occasional H (None) /hpf Urine Bacteria Rare H (None) /hpf Urine Mucus Rare H (None) /hpf Comments: EKG images reviewed. Normal sinus rhythm MRI sinuses report reviewed and summarized above Chest x-ray: report reviewed (no acute pathology) Assessment and Plan (1) Altered mental status Narrative/Plan: the patient is pending with new onset of altered mental status. This was preceded by new cranial nerve deficits on the left side as described in the HPI. The patient's PET scan had proven evidence of recurrence at the base of the brain. MRI of the sinuses confirmed large mass extending into the middle cranial fossa. This is likely causing his signs and symptoms due to mass effect. - The above was discussed with the patient and his . The patient will have an MRI of the brain ordered. - Start IV steroid - Consult radiation oncology. He may be able to receive radiation to the area of recurrence, if this is outside his prior radiation field. Current Visit: Yes Status: Acute Code(s): R41.82 - ALTERED MENTAL STATUS, UNSPECIFIED SNOMED Code(s): 370917610 (2) Cranial nerve palsy Narrative/Plan: As above Current Visit: Yes Status: Acute Code(s): G52.9 - CRANIAL NERVE DISORDER, UNSPECIFIED SNOMED Code(s): 01193199 (3) Maxillary sinus cancer Narrative/Plan: the patient has recurrent disease at the base of the brain, with PET scan and also showing left neck adenopathy. - Palliative measures will be started currently as described above. - The patient is unlikely to be a candidate for definitive surgery without cytoreduction first. Systemic treatment options will be addressed by Dr. Duval as outpt Current Visit: Yes Status: Acute Code(s): C31.0 - MALIGNANT NEOPLASM OF MAXILLARY SINUS SNOMED Code(s): 939035062
[2022-03-20] MEDS: DEXAMETHASONE SOD PHOSPHATE 10 MG/ML 1 ML VIAL IVP SCH (23:33)
--- NOTE | 2022-03-21 01:34 | HP ---
HISTORY AND PHYSICAL CHIEF COMPLAINT: Change in mental status. HISTORY OF PRESENT ILLNESS: This 67-year-old gentleman who has quite a past medical history of sinus maxillary cancer, had a recent PET scan showed progression of the disease and new cavitating mass around the left face and lymphadenopathy. The patient is also receiving apparently radiation therapy also. The patient is confused and not acting by himself and as stated, the patient was taken to [facility] and admitted for further evaluation and treatment. There is no history of any fever or rigors. PAST MEDICAL HISTORY: Include maxillary sinus cancer. The rest of the history and chart is reviewed. HOME MEDICATIONS: Reviewed include oxycodone. Doses and rest of medications reviewed. ALLERGIES: None. FAMILY HISTORY: No history of heart disease or strokes in the family. SOCIAL HISTORY: Previous history of smoking. REVIEW OF SYSTEMS: 14-point review is negative except mentioned earlier. PHYSICAL EXAM: VITAL SIGNS: Pulse is 63, blood pressureNTD respirations 18. HEENT: Conjunctivae normal. NECK: No JVD. CARDIOVASCULAR: S1, S2 muffled. RESPIRATIONS: Breath sounds diminished at the bases. No rhonchi, no crackles. ABDOMEN: Soft, nontender. No mass palpable. EXTREMITIES: Legs: No edema. No swelling. NEURO: No focal deficit. SKIN: No rash. JOINTS: No active deforming arthropathy. LABS: WBC NTD. Sodium 132. Rest of the labs are reviewed. ASSESSMENT: 1. Change in mental status and possible metabolic encephalopathy versus brain secondary. 2. Maxillary cancer left with progression. 3. Multiple medical issues. RECOMMENDATION: This 67-year-old gentleman who presented with multiple complex medical issues. At this time, we will monitor the patient closely. The patient has some change in mental status and recent PET scan showed some progression of the disease. We will treat the patient empirically, look for infections, obtain Neurology and Hematology Oncology consultations. Prognosis guarded. Resume the home medication once taken home. Further recommendation to follow. MMODL / IJN: [id number] / MTDD
[2022-03-21] MEDS: HEPARIN SODIUM,PORCINE/PF 5,000 UNIT/0.5 ML SYRINGE SQ SCH ×3 (09:25→20:50)
[2022-03-21] MEDS: DEXAMETHASONE SOD PHOSPHATE 10 MG/ML 1 ML VIAL IVP SCH ×4 (09:25→23:05)
[2022-03-21] MEDS: PANTOPRAZOLE 40 MG/10 ML VIAL IV SCH ×2 (09:25→09:30)
[2022-03-21] MEDS: LACTULOSE 20 GM/30 ML CUP PO SCH ×2 (09:25→11:02)
[2022-03-21] MEDS: NYSTATIN 100,000 UNIT/ML SUSP 500,000 UNIT/5 ML CUP PO SCH ×5 (09:25→20:50)
[2022-03-21 09:26] LABS: Basophils # (A) 0.03 X 10*3/uL (0.00-0.10); Basophils % (A) 0.4 %; Eosinophils # (A) 0.02 X 10*3/uL (0.04-0.35); Eosinophils % (A) 0.3 %; HCT 33.7 % (39.6-50.0); HGB 11.5 g/dL (13.0-17.0); Immature Grans, Automated 0.3 %; Lymphocytes # (A) 0.81 X 10*3/uL (0.90-5.00); Lymphocytes % (A) 11.4 %; MCH 31.7 pg (27.0-32.0); MCHC 34.1 g/dL (32.0-37.0); MCV 92.8 fL (80.0-97.0); Monocytes # (A) 0.78 X 10*3/uL (0.20-1.00); NRBC Per 100 WBC 0 /100 WBCS (0.0-0.0); Neutrophils # (A) 5.42 X 10*3/uL (1.80-7.70); Neutrophils % (A) 76.6 %; Platelet Count 343 X 10*3/uL (140-440); RBC 3.63 X 10*6/uL (4.40-5.60); RDW 14.1 % (11.5-14.5); WBC 7.08 X 10*3/uL (4.50-10.00)
[2022-03-21] MEDS: PREGABALIN 75 MG CAP PO SCH ×3 (09:26→20:50)
[2022-03-21] MEDS: DOCUSATE 100 MG CAP PO SCH ×3 (09:26→20:50)
[2022-03-21 09:48] LABS: African American GFR (CKD) 108.6 (60.0-200.0); Anion Gap 13.2 mmol/L (10.00-18.00); BUN/Creat Ratio 25.5 Ratio (12.00-20.00); Blood Urea Nitrogen 20.4 mg/dL (9.0-27.0); Calcium 10.2 mg/dL (8.7-10.3); Carbon Dioxide 26.8 mmol/L (20.0-27.5); Non-African American GFR(CKD) 93.7 (60.0-200.0); Potassium 4.3 mmol/L (3.5-5.5)
[2022-03-21] MEDS ORDERED: MULTIVITAMINS, THERA 1 EACH TAB PO SCH (12:00)
[2022-03-21] MEDS: FOLIC ACID 1 MG TAB PO SCH (12:29)
[2022-03-21] MEDS: THIAMINE 100 MG TAB PO SCH (12:29)
--- NOTE | 2022-03-21 13:47 | MR ---
EXAMINATION TYPE: MR brain wo/w con DATE OF EXAM: 03/21/2022 COMPARISON: 08/29/2021 HISTORY: AMS, hx maxillary cancer, evaluate for metastatic disease. CONTRAST: Performed utilizing 6 mL intravenous Gadavist gadolinium contrast. TECHNIQUE: Multiplanar, multiecho imaging on a 3.0 Skylar magnet is performed through the brain. Stud y is performed within 24 hours of arrival to the hospital. The craniovertebral junction is normal. The pituitary is normal. Diffusion-weighted imaging is performed. No abnormal hyperintensity is present to suggest an acute i ntracranial infarct or acute ischemic change. There are scattered punctate areas of hyperintensity on T2 and Inversion Recovery weighted sequences which are non-specific but can be related to microvascular ischemic changes. Some white matter change s are within the brainstem. No abnormal enhancement is evident. Ventricles and sulci are appropriate for the patient age. Fluid-filled left mastoid air cells are present. Correlate for left mastoiditis. No septal destructio n is evident. Prior left maxillary surgery is evident. There is opacification of the sphenoid sinus. Mucosal thicke alex in the right sphenoid sinus and right maxillary sinus. IMPRESSIONS: 1. Chronic appearing periventricular white matter and brainstem white matter changes likely on the ba sis of chronic white matter ischemic changes. 2. No suspicious abnormal masses or enhancement of the suggest metastatic disease. 3. Postsurgical changes left maxillary sinus. Opacification is present within the sphenoid sinuses wi th mucosal thickening within right maxillary sinus.
--- NOTE | 2022-03-21 15:57 | P.PN ---
Subjective Progress Note Date: 03/21/22 This is a 67-year-old male who was recently admitted with confusion and altered mental status and being closely monitored. Oncology following as patient had recently an outpatient PET scan showing progression of the disease with a new cavitating mass around the left face lymphadenopathy. Repeat MRI of the brain is ordered and pending at this time. Radiation oncology was also consulted and pending at this time as well. Patient is maintained on IV steroids as well as pain management. Patient is scheduled to undergo EEG as well. Patient does have tube feedings with dietitian on consult to initiate tube feedings. Overall prognosis remains guarded. Girlfriend and brother at the bedside with questions and concerns that were answered. No reports of fever or chest pain noted. Review of systems: Unable to obtain as patient is confused and currently sedated PHYSICAL EXAMINATION: GENERAL: The patient is lethargic and somewhat sedated, resting, thin built, ill-appearing, cachectic HEENT: Pupils are round and equally reacting to light. EOMI. no scleral icterus. No conjunctival pallor. Normocephalic, atraumatic. No pharyngeal erythema. No thyromegaly. CARDIOVASCULAR: S1 and S2 muffled PULMONARY: diminished breath sounds bilaterally with no wheezing or rhonchi noted. ABDOMEN: soft. Nontender on exam. non-distended, normoactive bowel sounds. No palpable organomegaly. MUSCULOSKELETAL: No joint swelling or deformity. EXTREMITIES: No cyanosis, clubbing, or pedal edema. Muscle wasting noted NEUROLOGICAL: Gross neurological examination did not reveal any focal deficits. Diffuse weakness SKIN: No rashes. 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 Radiation oncology consulted for possible palliation radiology. Most recent PET scan suggestive of recurrence and progression within the brain. Patient having altered mental status with confusion and increased restlessness per girlfriend. Girlfriend at the bedside reports this is the first time he slept in days as he is currently sleeping on exam. Repeat MRI of the brain is ordered and pending at this time. Home medications have been resumed and also will consult dietary to initiate tube feedings. Recommend aspiration precautions with head of the bed elevated 45 at all times. Recommend follow-up labs and continued neurological exam. Due to multiple complex medical issues, prognosis is guarded. The impression and plan of care has been dictated by Flores Muro, nurse practitioner as directed. Dr. Elliott MD I have performed a history and examination and MDM of this patient, discussed the same with the dictator, and agree with the dictator's assessment and plan as written ,documented as a scribe. Based on total visit time, I have performed more than 50% of the visit. Any additional findings or plans will be noted. Objective - Vital Signs Vital signs: Vital Signs Temp 98.4 F 03/20/22 22:54 Pulse 92 03/21/22 07:45 Resp 20 03/21/22 07:45 BP 100/68 03/21/22 07:45 Pulse Ox 92 L 03/21/22 07:45 FiO2 Intake & Output 03/20/22 03/21/22 03/21/22 18:59 06:59 18:59 Weight 61.371 kg Other: Voiding Method Diaper Diaper - Labs CBC & Chem 7: 03/21/22 06:28 03/21/22 06:28 Labs: Abnormal Lab Results - Last 24 Hours (Table) 03/20/22 03/21/22 03/21/22 Range/Units 08:06 06:28 06:28 RBC 3.63 L (4.40-5.60) X 10*6/uL Hgb 11.5 L (13.0-17.0) g/dL Hct 33.7 L (39.6-50.0) % MPV 9.0 L (9.5-12.2) fL Lymphocytes # 0.81 L (0.90-5.00) X 10*3/uL Eosinophils # 0.02 L (0.04-0.35) X 10*3/uL Sodium 133 L (135-145) mmol/L Chloride 93 L (96-109) mmol/L BUN/Creatinine Ratio 25.50 H (12.00-20.00) Ratio Amorphous Sediment Occasional H (None) /hpf Urine Bacteria Rare H (None) /hpf Urine Mucus Rare H (None) /hpf
--- NOTE | 2022-03-21 16:52 | P.CONS ---
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 He underwent a course of adjuvant chemoradiation to 66 Gy finishing on 05/17/2021. Unfortunately, the patient developed increasing pain in recent months over the left face/head. Recent imaging is highly worrisome for local recurrence of disease. The patient presents to the ER secondary to altered mental status. According to the patient's , he has had increased difficulty with confusion over the past few weeks. He has had significant difficulty with uncontrolled pain and difficulty sleeping. He had a PEG tube placed about 3 weeks ago as he was not eating well and losing weight. The patient underwent a PET/CT on March 07, 2022. This revealed abnormal uptake within the left maxillary surgical bed with an SUV of 9.9. This was worrisome for recurrent disease. The patient was subsequently hospitalized on March 20. At the time, his reports he was hallucinating and speaking nonsensically. He continues to have significant left-sided facial pain. This is often up to 10 out of 10, and the patient takes Lyrica and oxycodone at home without significant relief. He reports loss of his left eye vision over . He was seen in neurology and underwent an MRI yesterday. He also had a repeat MRI today at the hospital. The report from yesterday's showed a large skull-based mass extending into the right middle cranial fossa with possible involvement of the cavernous sinus. Review of Systems Constitutional: Reports chronic headaches, Reports chronic pain, Reports weight loss, Denies chills, Denies fever Eyes: left decreased vision Ears, nose, mouth and throat: Reports headache, Reports mouth pain, Reports sinus pain, Denies epistaxis, Denies neck lump Cardiovascular: Denies chest pain Respiratory: Denies congestion, Denies cough Gastrointestinal: Denies belching, Denies bloating Neurological: Reports confusion Past Medical History Past Medical History: Cancer Additional Past Medical History / Comment(s): sinus infection, maxilla CA History of Any Multi-Drug Resistant Organisms: None Reported Past Surgical History: No Surgical Hx Reported Additional Past Surgical History / Comment(s): 01/2021 cancer removal surgery left sinus cavity/maxilla Past Anesthesia/Blood Transfusion Reactions: No Reported Reaction Past Psychological History: No Psychological Hx Reported Smoking Status: Former smoker Past Alcohol Use History: Occasional Past Drug Use History: None Reported Medications and Allergies Home Medications Medication Instructions Recorded Confirmed Type Citalopram Hydrobromide [CeleXA] 40 mg PO HS 11/30/20 03/20/22 History Docusate Sodium [Dok] 100 mg PO BID 02/04/22 03/20/22 History Lactulose [Constulose] 30 gm PO DAILY 03/07/22 03/20/22 History Pantoprazole Sodium [Protonix] 40 mg PO DAILY 03/07/22 03/20/22 History Pregabalin [Lyrica] 150 mg PO BID 03/07/22 03/20/22 History oxyCODONE HCL [Roxicodone] 15 mg PO Q6H PRN 03/07/22 03/20/22 History Nystatin [Nystatin Oral Susp] 400,000 unit PO QID 03/20/22 03/20/22 History Allergies Allergy/AdvReac Type Severity Reaction Status Date / Time No Known Allergies Allergy Verified 03/20/22 11:45 Physical Exam Vitals: Vital Signs Temp Pulse Resp BP Pulse Ox 03/21/22 14:55 98.2 F 123 H 20 100/67 97 03/21/22 07:45 92 20 100/68 92 L 03/20/22 22:54 98.4 F 79 16 122/74 96 03/20/22 20:05 98 F 83 16 122/84 99 Intake and Output 03/21/22 03/21/22 03/21/22 06:59 14:59 22:59 Other: Voiding Method Diaper Weight 61.371 kg - Constitutional General appearance: no acute distress - EENT Eyes: ptosis (left eye) ENT: hearing grossly normal, other (Dry mucous membranes, exam of oral cavity limited by small oral opening) - Neck Neck: no lymphadenopathy - Respiratory Respiratory: bilateral: CTA - Cardiovascular Rhythm: regular - Integumentary Integumentary: pale - Psychiatric Psychiatric: no A&O x's 3 (Patient drowsy, falls asleep after speaking with him) Results CBC & Chem 7: 03/21/22 06:28 03/21/22 06:28 Labs: Abnormal Lab Results - Last 24 Hours (Table) 03/21/22 03/21/22 Range/Units 06:28 06:28 RBC 3.63 L (4.40-5.60) X 10*6/uL Hgb 11.5 L (13.0-17.0) g/dL Hct 33.7 L (39.6-50.0) % MPV 9.0 L (9.5-12.2) fL Lymphocytes # 0.81 L (0.90-5.00) X 10*3/uL Eosinophils # 0.02 L (0.04-0.35) X 10*3/uL Sodium 133 L (135-145) mmol/L Chloride 93 L (96-109) mmol/L BUN/Creatinine Ratio 25.50 H (12.00-20.00) Ratio MRI - head: image reviewed Assessment and Plan Assessment: The patient is a 67-year-old male with a history of a stage ELIZABETH (pT4a, pN0, 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 He underwent a course of adjuvant chemoradiation to 66 Gy finishing on 05/17/2021. Unfortunately, the patient developed increasing pain in recent months over the left face/head. Recent imaging is highly worrisome for local recurrence of disease. The patient presents to the ER secondary to altered me ntal status. Plan: 1. AMS: This seems to be improving. However, at the time of my examination the patient is very fatigued. He seems to fall asleep after responding to questions. The alteration in his mental status could be secondary to poor pain control and subsequent difficulty sleeping at home. It could be secondary to medications. It could even be from pressure from recurrent tumor which appears to be invading the middle cranial fossa. Recurrent disease in the cavernous sinus would also help to explain his new left-sided visual loss. 2. Likely recurrent maxillary sinus cancer: Based on the patient's most recent PET/CT, he has markedly abnormal uptake at the level of the maxillary sinus. This corresponds to the patient's prior radiation field in the prior site of his invasive disease. The most likely explanation is recurrent disease, however at ypical fungal infection is also a possibility. This case was discussed with Dr. Howard. He explained that a biopsy would be required to confirm if there is recurrent disease. The patient could be transferred to either [facility] or [facility] to be seen by Dr. Howard and his team. I discussed this with the patient's . They would likely want the patient to be medically stable prior to any potential transfer. 3. Pain control: continue to optimize pain control, pain is likely secondary to recurrent tumor. Time with Patient: Greater than 30
--- NOTE | 2022-03-21 18:18 | P.PN ---
Subjective Progress Note Date: 03/21/22 The patient is significantly, her today with medication. He states that his pain is unchanged, but appears to be quite comfortable laying in bed. Objective - Vital Signs Vital signs: Vital Signs Temp 98.2 F 03/21/22 14:55 Pulse 123 H 03/21/22 14:55 Resp 20 03/21/22 14:55 BP 100/67 03/21/22 14:55 Pulse Ox 97 03/21/22 14:55 FiO2 Intake & Output 03/20/22 03/21/22 03/21/22 18:59 06:59 18:59 Weight 61.371 kg 61.371 kg Other: Voiding Method Diaper Diaper Diaper - Constitutional General appearance: Present: no acute distress - EENT EENT Comment(s): Still unable to retract eyelids on the left, but some muscle activity is noted. Visual activity on the left currently is limited to light perception. - Trismus ENT: Present: hearing grossly normal - Respiratory Respiratory: bilateral: CTA - Cardiovascular Rhythm: regular Heart sounds: normal: S1, S2 - Gastrointestinal Gastrointestinal Comment(s): PEG site is clean. General gastrointestinal: Present: normal bowel sounds, soft - Integumentary Integumentary: Present: normal - Neurologic Neurologic: Present: focal deficits (Left seventh nerve and optic nerve palsy) - Musculoskeletal Musculoskeletal: Present: generalized weakness, strength equal bilaterally - Psychiatric Psychiatric: Present: A&O x's 3 - Labs CBC & Chem 7: 03/21/22 06:28 03/21/22 06:28 Labs: Abnormal Lab Results - Last 24 Hours (Table) 03/21/22 03/21/22 Range/Units 06:28 06:28 RBC 3.63 L (4.40-5.60) X 10*6/uL Hgb 11.5 L (13.0-17.0) g/dL Hct 33.7 L (39.6-50.0) % MPV 9.0 L (9.5-12.2) fL Lymphocytes # 0.81 L (0.90-5.00) X 10*3/uL Eosinophils # 0.02 L (0.04-0.35) X 10*3/uL Sodium 133 L (135-145) mmol/L Chloride 93 L (96-109) mmol/L BUN/Creatinine Ratio 25.50 H (12.00-20.00) Ratio Assessment and Plan (1) Altered mental status Narrative/Plan: This is improved compared to admission although not back to baseline. The patient is showing better recall, and more appropriate responses. He is much, her. Current Visit: Yes Status: Acute Code(s): R41.82 - ALTERED MENTAL STATUS, UNSPECIFIED SNOMED Code(s): 951436829 (2) Cranial nerve palsy Narrative/Plan: There is possibly some mild improvement in the left seventh nerve power. Patient does show some light perception on the left side. Continue IV steroids Current Visit: Yes Status: Acute Code(s): G52.9 - CRANIAL NERVE DISORDER, UNSPECIFIED SNOMED Code(s): 11263355 (3) Maxillary sinus cancer Narrative/Plan: The patient's MRI of the brain did not show any metastasis in the substance of the brain itself. Therefore it appears that his symptoms are likely due to the recurrent mass in the middle cranial fossa causing compression on the inferior aspect of the brain, and direct involvement of certain cranial nerves. - Case was discussed in detail with Dr. Harley. He states that the location of mass is in the same area as the previous tumor, and this has received definitive radiation. Therefore the patient is not a candidate for any more radiation, especially in definitive diagnosis. - EENT surgery has been contacted. I will also inform Dr. Otero, and have him discuss the case with ENT surgery see if the patient should be transferred for a biopsy, or if based on imaging systemic therapy initiation can be considered. Current Visit: Yes Status: Acute Code(s): C31.0 - MALIGNANT NEOPLASM OF MAXILLARY SINUS SNOMED Code(s): 264048327
[2022-03-21] MEDS: CITALOPRAM HYDROBROMIDE 20 MG TAB PO SCH (20:50)
--- NOTE | 2022-03-22 02:53 | EEG ---
ELECTROENCEPHALOGRAM REPORT PREAMBLE: This is a 67-year-old male with history of sinus maxillary cancer, who has developed new cavitating mass around the left face and lymphadenopathy. The patient had some seizure-like activity. This study is performed to evaluate for any epileptiform activity. EEG FINDINGS: This is a 21-channel digital EEG recorded with video component, utilizing 10/20 international system with referential and bipolar montages. Background consists of well-developed, moderately well regulated, predominantly mixed frequencies of 4 to 6 hertz theta activity, intermixed with some delta and some alpha activity seen in posterior head region. Background does not seem to be clearly reactive to eye opening or closing. Photic driving response was not seen. Different stages of sleep were not seen. No definitive focal or generalized epileptiform activity was seen. IMPRESSION: This is an abnormal EEG due to background slowing of [id number] degree. This is suggestive of generalized cerebral dysfunction as can be seen with toxic metabolic encephalopathy due to diffuse structural brain abnormality. Clinical correlation is recommended. No epileptiform activity was seen. MMODL / IJN: [id number] /
[2022-03-22] MEDS: DEXAMETHASONE SOD PHOSPHATE 10 MG/ML 1 ML VIAL IVP SCH ×2 (08:18→16:41)
[2022-03-22] MEDS: PREGABALIN 75 MG CAP PO SCH ×2 (08:18→21:08)
[2022-03-22] MEDS: PANTOPRAZOLE 40 MG/10 ML VIAL IV SCH (08:18)
[2022-03-22] MEDS: DOCUSATE 100 MG CAP PO SCH ×2 (08:18→21:08)
[2022-03-22] MEDS: NYSTATIN 100,000 UNIT/ML SUSP 500,000 UNIT/5 ML CUP PO SCH ×4 (08:18→21:08)
[2022-03-22] MEDS: HEPARIN SODIUM,PORCINE/PF 5,000 UNIT/0.5 ML SYRINGE SQ SCH ×3 (08:18→21:19)
[2022-03-22] MEDS: LACTULOSE 20 GM/30 ML CUP PO SCH (08:22)
--- NOTE | 2022-03-22 10:42 | P.CNNES ---
History of Present Illness Consult date: 03/21/22 Requesting physician: Beth Cool Reason for Consult: AMS with progressive maxillary sinus cancer History of Present Illness: Patient is a 67-year-old male with history of carcinoma of the paranasal sinuses, had undergone previous chemo, radiation as well as surgery, was brought to the hospital by ambulance on 04/08/2022, at 7:51 AM for altered mental status. As per EMS flow sheet, when they arrived, patient was awake but altered, laying in the bed. Patient's stated that patient was diagnosed with brain tumor on the frontal lobe with history of sinus cancer. Patient had an [facility] and per he has not been acting appropriately. He has been scratching at his scalp to the point of drawing blood, reaching for things that are not there and trying to get out of bed. Patient's has mentioned that patient was taken off Klonopin by his physicians and has not been sleeping well since then. EKG showed sinus rhythm. Temperature was 97.2. Blood glucose was 174 and saturation 96%. Blood pressure was 114/75. Patient denies history of diabetes or hypertension. He states that he has smoked 2 packs per day for about 40 years, quit smoking over a year ago. He is to drink alcohol, but not a lot. He does have history of sinus issues in the past. Patient says that he was diagnosed with sinus cancer in November 2020. He has undergone chemoradiation and surgery as well. He does have pain in the sinuses which is present all the time. At present he is not receiving any chemotherapy. Patient states that he has been on Klonopin for 8-10 years. As he was having some "lost control of self" 2-3 weeks ago, the Klonopin was discontinued about couple weeks ago. He states that he lives with his girlfriend. I spoke to patient's caregiver Cadence on the phone. She states that she knows him for last 12 years and he has been taking Klonopin 1 mg at bedtime even before she met him. Klonopin was discontinued 3 weeks ago after he underwent PEG tube placement. Patient's girlfriend states that she was told that the doctors mentioned that if this medication is on 4 C, can "shutdown the organs". Klonopin was discontinued at the time of admission for PEG tube placement. After he was discharged, in the beginning he was not too bad. However the in- house nurse came Thursday and he was fidgeting with the hands. He came, he was confused, having hallucinations. He was sent to the ER. She states that he has been in the ER couple times since then. She was concerned that he will hurt himself. He was tearing bed apart, couldn't lay still trying to climb out of bed he would get up and walk away with feeding tube on, spilling all the feeds on the floor. He would pull on the side rails of his hospital bed, assuming those were "pipes". He has not slept well since PEG tube was placed. She notices that he would throw legs in the bed, and had involuntary movements of his arms and legs. Patient's girlfriend agreed that he was better yesterday as compared to how he has been in the previous days. Patient's blood test shows WBC 7.08, hemoglobin 11.5, platelets are normal. PT/PTT normal, sodium 133 potassium 4.3, renal functions are normal. Hepatic panel is normal, ammonia is less than 9, UA negative. MRI of the brain revealed chronic appearing periventricular white matter and brainstem white matter changes likely on the basis of chronic white matter ischemic changes. No suspicious abnormal masses or enhancement to suggest metastatic disease. Postsurgical changes left maxillary sinus. Opacification is present within the sphenoid sinuses with mucosal thickening within the right maxillary sinus. Review of Systems Constitutional: Reports chronic headaches, Reports fatigue, Reports weight loss, Denies chills, Denies fever Eyes: left dry eye, left pain, denies blurred vision Ears: deny: earache Cardiovascular: Reports decreased exercise tolerance, Denies chest pain, Denies shortness of breath Respiratory: Denies cough Gastrointestinal: Reports as per HPI Musculoskeletal: Reports muscle weakness, Denies fractures Integumentary: Reports pruritus Neurological: Reports as per HPI, Reports change in mentation, Denies convulsions, Denies syncope Psychiatric: Reports confusion, Reports disorientation, Reports insomnia, Reports irritability Endocrine: Reports fatigue, Reports weight change Hematologic/Lymphatic: Denies easy bleeding Past Medical History Past Medical History: Cancer Additional Past Medical History / Comment(s): sinus infection, maxilla CA History of Any Multi-Drug Resistant Organisms: None Reported Past Surgical History: No Surgical Hx Reported Additional Past Surgical History / Comment(s): 01/2021 cancer removal surgery left sinus cavity/maxilla Past Anesthesia/Blood Transfusion Reactions: No Reported Reaction Past Psychological History: No Psychological Hx Reported Smoking Status: Former smoker Past Alcohol Use History: Occasional Past Drug Use History: None Reported Medications and Allergies Home Medications Medication Instructions Recorded Confirmed Type Citalopram Hydrobromide [CeleXA] 40 mg PO HS 11/30/20 03/20/22 History Docusate Sodium [Dok] 100 mg PO BID 02/04/22 03/20/22 History Lactulose [Constulose] 30 gm PO DAILY 03/07/22 03/20/22 History Pantoprazole Sodium [Protonix] 40 mg PO DAILY 03/07/22 03/20/22 History Pregabalin [Lyrica] 150 mg PO BID 03/07/22 03/20/22 History oxyCODONE HCL [Roxicodone] 15 mg PO Q6H PRN 03/07/22 03/20/22 History Nystatin [Nystatin Oral Susp] 400,000 unit PO QID 03/20/22 03/20/22 History Allergies Allergy/AdvReac Type Severity Reaction Status Date / Time No Known Allergies Allergy Verified 03/20/22 11:45 Physical Examination - Vital Signs Vital Signs: Vital Signs Temp Pulse Resp BP Pulse Ox 03/21/22 14:55 98.2 F 123 H 20 100/67 97 03/21/22 07:45 92 20 100/68 92 L 03/20/22 22:54 98.4 F 79 16 122/74 96 03/20/22 20:05 98 F 83 16 122/84 99 Intake and Output 03/21/22 03/21/22 03/21/22 06:59 14:59 22:59 Other: Voiding Method Diaper Weight 61.371 kg 124.6 kg Patient is an elderly male, appears somewhat cachectic, in no acute distress. Patient is alert awake oriented to time place and person. He knows exactly 03/21/2022 date, and that he is in [facility] in [place]. Speech and language functions are normal. Patient can name and repeat very well. No aphasia or dysarthria. Attention, concentration and fund of knowledge is adequate. On cranial nerve examination, patient has very obvious left Thierry syndrome. His left pupil is much smaller than the right with prominent left ptosis. Both are reactive to light. visual caban are full on confrontation, with no neglect on double simultaneous stimulation. Extraocular muscles are intact with no nystagmus. Patient has bifacial weakness, cannot protrude his tongue, cannot open his jaw widely therefore palate cannot be assessed. Patient's hearing and shoulder shrug normal, facial sensation normal. On muscle strength testing, there is no pronator drift and the strength is normal in arms and legs distally and proximally. Deep tendon reflexes are symmetric 1 in the upper limbs, 2 in the lower limbs and plantars downgoing bilaterally. Sensory to touch is equal with no neglect on double simultaneous stimulation. Cerebellar function showed no ataxia for [id number] testing on either side. No dysdiadochokinesia. Patient has mild ataxia for [id number] testing only on the left side. Tone and bulk of muscles normal. Gait deferred.. On general examination, there is no carotid bruit or murmur, S1-S2 audible. Chest is clear on consultation. Abdomen is soft nontender. No organomegaly, bowel sounds present. Peripheral pulses are present. No edema. Results - Laboratory Findings CBC and BMP: 03/21/22 06:28 03/21/22 06:28 Abnormal Lab Findings: Abnormal Labs 03/20/22 03/20/22 03/20/22 08:06 08:06 08:06 RBC 3.56 L Hgb 11.7 L Hct 32.3 L MPV Lymphocytes # 0.6 L Eosinophils # Sodium 132 L Chloride 95 L Creatinine 0.64 L BUN/Creatinine Ratio Glucose 108 H Amorphous Sediment Occasional H Urine Bacteria Rare H Urine Mucus Rare H 03/21/22 03/21/22 06:28 06:28 RBC 3.63 L Hgb 11.5 L Hct 33.7 L MPV 9.0 L Lymphocytes # 0.81 L Eosinophils # 0.02 L Sodium 133 L Chloride 93 L Creatinine BUN/Creatinine Ratio 25.50 H Glucose Amorphous Sediment Urine Bacteria Urine Mucus Assessment and Plan Assessment: * Altered mental status, probably delirium due to benzo withdrawal. Patient has been on Klonopin 1 mg at bedtime for over 12 years, which was discontinued 3 weeks ago after placement of PEG. Since then patient has not been sleeping, has been delirious, hallucinating, agitated with involuntary movements. Apparently his mentation has normalized. Probably he has got over withdrawals. No seizures reported. EEG did not reveal any epileptiform activity. 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 * Status post adjuvant chemoradiation completed on 05/17/2021. * Status post PEG tube placement Plan: * Patient's mentation appears to be completely normal at this time. His delirium has probably resolved. * Patient is off Klonopin for last 3 weeks. Stay off Klonopin at this time. * Oncology and radiation oncology following. * Neurology will follow clinically. Please reconsult neurology, if patient has recurrence of altered mentation. * Discussed with patient's significant other in detail.
[2022-03-22] MEDS: MULTIVITAMINS, THERA LIQUID 237 ML BOTTLE PO SCH (12:21)
[2022-03-22] MEDS: FOLIC ACID 1 MG TAB PO SCH (12:21)
[2022-03-22] MEDS: THIAMINE 100 MG TAB PO SCH (12:21)
[2022-03-22 13:01] VITALS: BMI 37.2
--- NOTE | 2022-03-22 14:11 | P.PN ---
Subjective Progress Note Date: 03/22/22 This is a 67-year-old male who was recently admitted with confusion and altered mental status and being closely monitored. Oncology following as patient had recently an outpatient PET scan showing progression of the disease with a new cavitating mass around the left face lymphadenopathy. Repeat MRI of the brain is ordered and pending at this time. Radiation oncology was also consulted and pending at this time as well. Patient is maintained on IV steroids as well as pain management. Patient is scheduled to undergo EEG as well. Patient does have tube feedings with dietitian on consult to initiate tube feedings. Overall prognosis remains guarded. Girlfriend and brother at the bedside with questions and concerns that were answered. No reports of fever or chest pain noted. 03/22/2022 Patient is seen today and mentation has improved. Per nursing staff, patient had difficulty in sleeping due to pain last night but reports the pain is controlled currently. Patient is being followed by neurology along with oncology and radiation oncology. Patient underwent repeat mri of the brain. Per neurology possible klonopin withdrawal of the reason for persons altered mentation as his klonopin was discontinued approx 3 weeks prior. EEg negative for epileptiform discharges. Patient is afebrile and denies chest pain or shortness of breath. PHYSICAL EXAMINATION: GENERAL: The patient is more awake and alert today, resting, thin built, ill- appearing, cachectic HEENT: Pupils are round and equally reacting to light. EOMI. no scleral icterus. No conjunctival pallor. Normocephalic, atraumatic. No pharyngeal erythema. No thyromegaly. CARDIOVASCULAR: S1 and S2 muffled PULMONARY: diminished breath sounds bilaterally with no wheezing or rhonchi noted. ABDOMEN: soft. Nontender on exam. non-distended, normoactive bowel sounds. No palpable organomegaly. Peg tube noted MUSCULOSKELETAL: No joint swelling or deformity. EXTREMITIES: No cyanosis, clubbing, or pedal edema. Muscle wasting noted NEUROLOGICAL: Gross neurological examination did not reveal any focal deficits. Diffuse weakness SKIN: No rashes. Assessment: Change in mental status with possible metabolic encephalopathy versus brain metastasis secondary Possible clonopin withdrawal Maxillary cancer of the left with progression Former smoker GI prophylaxis DVT prophylaxis Full code Plan: Recommend to continue with current medications and management along with oncology and neurology following. Radiation oncology consulted for possible palliation radiology. Most recent PET scan suggestive of recurrence and progre ssion within the brain. Patient having altered mental status with confusion and increased restlessness per girlfriend. Possibly secondary to Klonopin withdrawal as patient had been taken off of that when peg tube was placed three weeks ago. Recommend to continue to hold Klonopin. Mentation is improved. Continue with pain management and radiation oncology discussing treatment options. Continued o n IV steroids for now. Recommend aspiration precautions with head of the bed elevated 45 at all times. Recommend PT evaluation. Due to multiple complex medical issues, prognosis is guarded. The impression and plan of care has been dictated as a scribe by Flores Muro, nurse practitioner as directed. Dr. Elliott MD I have performed a history and examination and MDM of this patient, discussed the same with the dictator, and will be documented as a scribe. Based on total visit time, I have performed more than 50% of the visit. Any additional findings or plans will be noted. Objective - Vital Signs Vital signs: Vital Signs Temp 97.7 F 03/22/22 04:34 Pulse 79 03/22/22 04:34 Resp 15 03/22/22 04:34 BP 104/67 03/22/22 04:34 Pulse Ox 96 03/22/22 04:34 FiO2 Intake & Output 03/21/22 03/22/22 03/22/22 18:59 06:59 18:59 Weight 124.6 kg Other: Voiding Method Diaper Diaper - Labs CBC & Chem 7: 03/21/22 06:28 03/21/22 06:28 Labs: Abnormal Lab Results - Last 24 Hours (Table) 03/21/22 03/21/22 Range/Units 06:28 06:28 RBC 3.63 L (4.40-5.60) X 10*6/uL Hgb 11.5 L (13.0-17.0) g/dL Hct 33.7 L (39.6-50.0) % MPV 9.0 L (9.5-12.2) fL Lymphocytes # 0.81 L (0.90-5.00) X 10*3/uL Eosinophils # 0.02 L (0.04-0.35) X 10*3/uL Sodium 133 L (135-145) mmol/L Chloride 93 L (96-109) mmol/L BUN/Creatinine Ratio 25.50 H (12.00-20.00) Ratio
[2022-03-22] MEDS: CITALOPRAM HYDROBROMIDE 20 MG TAB PO SCH (21:08)
[2022-03-22] MEDS: MELATONIN 3 MG TABLET PO PRN (22:04)
[2022-03-23] MEDS: DEXAMETHASONE SOD PHOSPHATE 10 MG/ML 1 ML VIAL IVP SCH ×4 (00:25→23:03)
[2022-03-23] MEDS: LACTULOSE 20 GM/30 ML CUP PO SCH (08:42)
[2022-03-23] MEDS: PANTOPRAZOLE 40 MG/10 ML VIAL IV SCH (08:42)
[2022-03-23] MEDS: HEPARIN SODIUM,PORCINE/PF 5,000 UNIT/0.5 ML SYRINGE SQ SCH ×3 (08:43→20:51)
[2022-03-23] MEDS: PREGABALIN 75 MG CAP PO SCH ×2 (08:43→20:32)
[2022-03-23] MEDS: DOCUSATE 100 MG CAP PO SCH ×2 (08:44→20:32)
[2022-03-23] MEDS: NYSTATIN 100,000 UNIT/ML SUSP 500,000 UNIT/5 ML CUP PO SCH ×4 (08:44→20:59)
[2022-03-23] MEDS: MULTIVITAMINS, THERA LIQUID 237 ML BOTTLE PO SCH (12:40)
[2022-03-23] MEDS: FOLIC ACID 1 MG TAB PO SCH (12:40)
[2022-03-23] MEDS: THIAMINE 100 MG TAB PO SCH (12:40)
--- NOTE | 2022-03-23 16:04 | P.PN ---
Subjective Progress Note Date: 03/23/22 This is a 67-year-old male who was recently admitted with confusion and altered mental status and being closely monitored. Oncology following as patient had recently an outpatient PET scan showing progression of the disease with a new cavitating mass around the left face lymphadenopathy. Repeat MRI of the brain is ordered and pending at this time. Radiation oncology was also consulted and pending at this time as well. Patient is maintained on IV steroids as well as pain management. Patient is scheduled to undergo EEG as well. Patient does have tube feedings with dietitian on consult to initiate tube feedings. Overall prognosis remains guarded. Girlfriend and brother at the bedside with questions and concerns that were answered. No reports of fever or chest pain noted. 03/22/2022 Patient is seen today and mentation has improved. Per nursing staff, patient had difficulty in sleeping due to pain last night but reports the pain is controlled currently. Patient is being followed by neurology along with oncology and radiation oncology. Patient underwent repeat mri of the brain. Per neurology possible klonopin withdrawal of the reason for persons altered mentation as his klonopin was discontinued approx 3 weeks prior. EEg negative for epileptiform discharges. Patient is afebrile and denies chest pain or shortness of breath. 03/23/2022 Patient is seen in follow up today and continues to be in pain. Continued on current regimen and will increase slightly. Patient awaiting rad onc evaluation. Patient with weakness and will have PT/OT evaluate. Patient is afebrile and denies nausea or vomiting. Tolerating tube feeds. PHYSICAL EXAMINATION: GENERAL: The patient is awake and alert today, resting, thin built, ill- appearing, cachectic HEENT: Pupils are round and equally reacting to light. EOMI. no scleral icterus. No conjunctival pallor. Normocephalic, atraumatic. No pharyngeal erythema. No thyromegaly. CARDIOVASCULAR: S1 and S2 muffled PULMONARY: diminished breath sounds bilaterally with no wheezing or rhonchi noted. ABDOMEN: soft. Nontender on exam. non-distended, normoactive bowel sounds. No palpable organomegaly. Peg tube noted MUSCULOSKELETAL: No joint swelling or deformity. EXTREMITIES: No cyanosis, clubbing, or pedal edema. Muscle wasting noted NEUROLOGICAL: Gross neurological examination did not reveal any focal deficits. Diffuse weakness SKIN: No rashes. Assessment: Change in mental status with possible metabolic encephalopathy versus brain metastasis secondary Possible Klonopin withdrawal Maxillary cancer of the left with progression Former smoker GI prophylaxis DVT prophylaxis Full code Plan: Recommend to continue with current medications and management along with oncology and neurology following. Radiation oncology consulted for possible palliation radiology. Most recent PET scan suggestive of recurrence and progression within the brain. Patient having improved mental status. POorly controlled pain and continued weakness. Will consult PT. Continue with pain management and radiation oncology discussing treatment options. Continued on IV steroids for now. Recommend aspiration precautions with head of the bed elevated 45 at all times. Due to multiple complex medical issues, prognosis is guarded. The impression and plan of care has been dictated as a scribe by Flores Muro, nurse practitioner as directed. Dr. Elliott MD I have performed a history and examination and MDM of this patient, discussed the same with the dictator, and will be documented as a scribe. Based on total visit time, I have performed more than 50% of the visit. Any additional findings or plans will be noted. Objective - Vital Signs Vital signs: Vital Signs Temp 97.6 F 03/23/22 04:20 Pulse 70 03/23/22 04:20 Resp 14 03/23/22 04:20 BP 115/73 03/23/22 04:20 Pulse Ox 99 03/23/22 04:20 FiO2 Intake & Output 03/22/22 03/23/22 03/23/22 18:59 06:59 18:59 Output Total 1300 Balance -1300 Weight 57.1 kg Output: Urine 1300 Other: Voiding Method Diaper Diaper - Labs CBC & Chem 7: 03/21/22 06:28 03/21/22 06:28
[2022-03-23] MEDS: MELATONIN 3 MG TABLET PO PRN (20:32)
[2022-03-23] MEDS: CITALOPRAM HYDROBROMIDE 20 MG TAB PO SCH (20:32)
--- NOTE | 2022-03-23 23:23 | P.PN ---
Subjective Progress Note Date: 03/23/22 Patient was seen for a follow-up. Patient is laying comfortably in the bed. Also spoke to the nurse. Patient has not had any more delirium, now altered mentation or confusion or restlessness. He has been sleeping well with melatonin. He is off Klonopin. Objective - Vital Signs Vital signs: Vital Signs Temp 97.4 F L 03/23/22 19:45 Pulse 96 03/23/22 19:45 Resp 16 03/23/22 19:45 BP 98/63 03/23/22 19:45 Pulse Ox 100 03/23/22 19:45 FiO2 Intake & Output 03/23/22 03/23/22 03/24/22 06:59 18:59 06:59 Output Total 1300 Balance -1300 Weight 59.3 kg Output: Urine 1300 Other: Voiding Method Diaper Diaper - Exam Mental status, speech and language functions are normal. Examination appears unchanged. Detailed testing deferred. - Labs CBC & Chem 7: 03/21/22 06:28 03/21/22 06:28 Assessment and Plan Assessment: * Altered mental status, probably delirium due to benzo withdrawal. Patient has been on Klonopin 1 mg at bedtime for over 12 years, which was discontinued 3 weeks ago after placement of PEG. Since then patient has not been sleeping, has been delirious, hallucinating, agitated with involuntary movements. Apparently his mentation has normalized. Probably he has got over withdrawals. No seizures reported. EEG did not reveal any epileptiform activity. 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 * Status post adjuvant chemoradiation completed on 05/17/2021. * Status post PEG tube placement Plan: * Patient's mentation appears to be completely normal at this time. His delirium has completely resolved. * Patient is off Klonopin for last 3 weeks. Stay off Klonopin at this time. * Oncology and radiation oncology following. * Continue melatonin as needed for sleeping. * Neurology will sign off. Please reconsult neurology if any other concerns.
[2022-03-24 05:35] VITALS: PULSE 79
[2022-03-24] MEDS: NYSTATIN 100,000 UNIT/ML SUSP 500,000 UNIT/5 ML CUP PO SCH ×2 (08:51→13:38)
[2022-03-24] MEDS: PREGABALIN 75 MG CAP PO SCH (08:52)
[2022-03-24] MEDS: PANTOPRAZOLE 40 MG/10 ML VIAL IV SCH (08:52)
[2022-03-24] MEDS: HEPARIN SODIUM,PORCINE/PF 5,000 UNIT/0.5 ML SYRINGE SQ SCH (08:52)
[2022-03-24] MEDS: DEXAMETHASONE SOD PHOSPHATE 10 MG/ML 1 ML VIAL IVP SCH (08:52)
[2022-03-24] MEDS: LACTULOSE 20 GM/30 ML CUP PO SCH (08:52)
[2022-03-24] MEDS: MULTIVITAMINS, THERA LIQUID 237 ML BOTTLE PO SCH (08:53)
[2022-03-24] MEDS: DOCUSATE 100 MG CAP PO SCH (08:53)
[2022-03-24 11:24] VITALS: BP 101/67; RESP 16; TEMP 97.5
[2022-03-24] MEDS: THIAMINE 100 MG TAB PO SCH (13:38)
[2022-03-24] MEDS: FOLIC ACID 1 MG TAB PO SCH (13:38)
--- NOTE | 2022-03-24 21:32 | P.PN ---
Subjective Progress Note Date: 03/24/22 Principal diagnosis: AMS In f/u today pt is reporting that he is feeling better, he is thinking more clearly. He wants to eat but that was discouraged due to concerns for aspirat ion-he verbalized understanding. His throat is irritated, denies fever, chest pain, abd pain, tolerating tube feeds. He cont to lose wt. Objective - Vital Signs Vital signs: Vital Signs Temp 97.5 F L 03/24/22 11:18 Pulse 79 03/24/22 11:18 Resp 16 03/24/22 11:18 BP 101/67 03/24/22 11:18 Pulse Ox 98 03/24/22 11:18 FiO2 Intake & Output 03/23/22 03/24/22 03/24/22 18:59 06:59 18:59 Intake Total 880 Balance 880 Weight 59.3 kg Intake: Tube Feeding 780 Other 100 Other: Voiding Method Diaper Urinal Urinal Diaper # Voids 3 - Constitutional General appearance: Present: cooperative, mild distress, thin - EENT Eyes: Present: anicteric sclerae, ptosis ENT: Present: hearing grossly normal - Cardiovascular Rhythm: regular Heart sounds: normal: S1, S2 Abnormal Heart Sounds: Absent: systolic murmur, diastolic murmur, rub, S3 Gallop, S4 Gallop, click, other - Gastrointestinal Gastrointestinal Comment(s): PEG in situ General gastrointestinal: Present: scaphoid, soft - Integumentary Integumentary: Present: normal - Neurologic Neurologic: Present: focal deficits - Musculoskeletal Musculoskeletal: Present: generalized weakness, strength equal bilaterally - Psychiatric Psychiatric: Present: A&O x's 3, appropriate affect, intact judgment & insight - Labs CBC & Chem 7: 03/21/22 06:28 03/21/22 06:28 Assessment and Plan (1) Cranial nerve palsy Status: Acute Priority: High Code(s): G52.9 - CRANIAL NERVE DISORDER, UNSPECIFIED SNOMED Code(s): 67224294 (2) Maxillary sinus cancer Status: Acute Priority: High Code(s): C31.0 - MALIGNANT NEOPLASM OF MAXILLA RY SINUS SNOMED Code(s): 455679711 Plan: Case discussed with [facility], Rad Onc and Dr. Rivera did discuss case with primary Oncologist. Biopsy is recommended. Pt needs to get in to see Dr. Howard for biopsy. Plan at this time is for DC. Pt will try to get f/u-several attempts were made to contact Surgeon by [facility] without success, Rad Onc was also going to try to contact. If progressive symptoms, recommend pt be seen at [facility], as Surgeon does see pt there. Radiation is not indicated as the area/tissue has had lifetime max dose. If recurrence, Surgeon will assess if there is a role for surgical intervention. Systemic therapy will likely be the only treatment option. Pt will f/u with Dr. Duval after biopsy results available.
== END 2022-03-24 17:30 | disposition home health service (06) | DRG 896 ==
LOC: EC 07:54 → 5NMEDONC 11:21
PROVIDERS: ADMIT Internal Medicine; ATTEND Internal Medicine
PROC: 4A10X4Z Monitoring of Central Nervous Electrical Activity, External Approach (ICD-10-PCS; principal; 2022-03-21)
DX: F13.231 Sedative, hypnotic or anxiolytic dependence with withdrawal delirium (principal); G93.41 Metabolic encephalopathy; C79.31 Secondary malignant neoplasm of brain; R44.3 Hallucinations, unspecified; C31.0 Malignant neoplasm of maxillary sinus; G52.9 Cranial nerve disorder, unspecified; H54.7 Unspecified visual loss; Z79.899 Other long term (current) drug therapy; Z79.891 Long term (current) use of opiate analgesic; Z79.52 Long term (current) use of systemic steroids; Z85.22 Personal history of malignant neoplasm of nasal cavities, middle ear, and accessory sinuses; Z85.830 Personal history of malignant neoplasm of bone; Z87.891 Personal history of nicotine dependence; Z92.21 Personal history of antineoplastic chemotherapy; Z92.3 Personal history of irradiation; Z93.1 Gastrostomy status
CPT/HCPCS: 36415; 70553; 71046; 80048; 80053; 81001; 82140; 82550; 84484; 85025; 85610; 85730; 93005; 95819; 96372; 99285

== ENCOUNTER → 2022-03-31 | Outpatient (CLI) | payer MEDICARE ==
[2022-04-01 00:05] LABS: Albumin 3.2 g/dL (3.8-4.9); C Reactive Protein 12.3 mg/dL (0.00-0.80); Prealbumin 10.9 mg/dL (18.0-42.0)
== END | disposition home or self-care (01) ==
LOC: LABWHC1 12:59
PROVIDERS: ATTEND Surgery
DX: E46 Unspecified protein-calorie malnutrition (principal); R13.12 Dysphagia, oropharyngeal phase
CPT/HCPCS: 36415; 82040; 84134; 86140

== ENCOUNTER → 2022-04-08 | Outpatient (CLI) | payer MEDICARE ==
--- NOTE | 2022-04-08 15:26 | XR ---
EXAMINATION TYPE: XR chest 2V DATE OF EXAM: 04/08/2022 COMPARISON: 03/20/2022 HISTORY: Shortness of breath TECHNIQUE: Frontal and lateral views of the chest are obtained. FINDINGS: Scattered senescent parenchymal changes noted. Hyperinflation compatible with COPD. No evidence for infiltrate. No evidence for atelectasis. Heart size is stable. Mediastinal structures are stable and grossly unremarkable. No evidence for hilar prominence. Degenerative changes dorsal spine. IMPRESSION: 1. No evidence for acute pulmonary disease.
== END | disposition home or self-care (01) ==
LOC: RADXRMAIN 14:53
PROVIDERS: ATTEND Family Medicine
DX: J44.9 Chronic obstructive pulmonary disease, unspecified (principal); R06.02 Shortness of breath
CPT/HCPCS: 71046